=== PATIENT | male | born 1945 | race Caucasian/White ===

== ENCOUNTER → 2020-03-26 12:30 | Outpatient (CLI) | payer MEDICARE, OTHER, SELFPAY ==
[2020-03-26 12:46] LABS: Basophils # 0.1 K/mm3 (0-0.2); Basophils % 0.9 % (0.1-2.0); Eosinophils # 0.4 K/mm3 (0.0-0.4); Eosinophils % 4.2 % (0.1-12.0); Hematocrit 38.7 % (42.0-52.0); Lymphocytes % 20.1 % (10-50); Mean Corpuscular HGB Conc 33.6 g/dL (31.8-35.4); Mean Corpuscular Hemoglobin 34.7 pg (27.0-31.2); Mean Corpuscular Volume 103.4 fl (80-94); Mean Platelet Volume 9.1 fl (7.4-10.4); Monocytes # 0.7 K/mm3 (0.1-1.0); Monocytes % 6.7 % (1.7-9.3); Neutrophils # 6.7 K/mm3 (1.8-7.8); Neutrophils % 68.1 % (37.0-80.0); Platelet Count 368 K/mm3 (142-424); Red Blood Count 3.75 M/mm3 (4.60-6.20); Red Cell Distribution Width 18.3 % (11.5-17.5); White Blood Count 9.8 K/mm3 (4.8-10.8)
[2020-03-26 12:57] LABS: Alanine Aminotransferase 13 U/L (12-78); Albumin Level 4.1 g/dl (3.5-5.0); Albumin/Globulin Ratio 1.9 (1.1-1.8); Alkaline Phosphatase 65 U/L (38-126); Aspartate Amino Transferase 30 U/L (17-59); Bilirubin,Total 0.8 mg/dl (0.2-1.3); Blood Urea Nitrogen 23 mg/dl (9-20); Calcium 10.3 mg/dl (8.4-10.2); Carbon Dioxide 27 mmol/L (22.0-30.0); Chloride 104 mmol/L (98-107); Chol/HDL Ratio 1.8 (1-3.5); Cholesterol 135 mg/dl (140-200); Estimated Glomerular Filt Rate 73 ml/min (>60); GFR (African American) 89 ML/MIN (>60); Globulin 2.2 g/dL (1.3-3.2); Glucose 121 mg/dl (74-100); HDL Cholesterol 75 mg/dl (40-60); Sodium 140 mmol/L (136-145); Total Protein,Serum 6.3 g/dl (6.3-8.2); Triglycerides 158 mg/dl (30-150); VLDL Cholesterol 32 mg/dL (0-40)
[2020-03-26 13:08] LABS: Direct LDL Cholesterol 45.31 mg/dL (100-129)
[2020-03-26 13:14] LABS: T4 (Thyroxine) 12.7 ug/dl (5.53-11.0)
[2020-03-26 13:27] LABS: Thyroid Stimulating Hormone 4.56 uIU/mL (0.465-4.68)
== END ==
PROVIDERS: Visit Provider Nurse Practitioner Family
DX: I10 Essential (primary) hypertension (principal); E11.9 Type 2 diabetes mellitus without complications; Z79.84 Long term (current) use of oral hypoglycemic drugs
CPT/HCPCS: 80053; 80061; 83036; 84436; 84443; 85025

== ENCOUNTER → 2020-06-10 15:01 | Outpatient (CLI) | payer MEDICARE, OTHER, SELFPAY ==
[2020-06-10 18:45] LABS: Basophils # 0.1 K/mm3 (0-0.2); Basophils % 1.2 % (0.1-2.0); Eosinophils # 0.3 K/mm3 (0.0-0.4); Eosinophils % 4.1 % (0.1-12.0); Hematocrit 41.4 % (42.0-52.0); Hemoglobin 12.8 g/dL (14.1-18.0); Lymphocytes # 1.7 K/mm3 (0.7-4.5); Mean Corpuscular Hemoglobin 31.4 pg (27.0-31.2); Mean Corpuscular Volume 101.2 fl (80-94); Monocytes # 0.5 K/mm3 (0.1-1.0); Monocytes % 6.1 % (1.7-9.3); Neutrophils # 5.3 K/mm3 (1.8-7.8); Neutrophils % 67.6 % (37.0-80.0); Platelet Count 330 K/mm3 (142-424); Red Blood Count 4.09 M/mm3 (4.60-6.20); Red Cell Distribution Width 17.9 % (11.5-17.5); White Blood Count 7.9 K/mm3 (4.8-10.8)
[2020-06-10 18:52] LABS: Alanine Aminotransferase 11 U/L (12-78); Albumin Level 4.3 g/dl (3.5-5.0); Albumin/Globulin Ratio 1.7 (1.1-1.8); Alkaline Phosphatase 73 U/L (38-126); Anion Gap 12.7 mEq/L (5-15); Aspartate Amino Transferase 27 U/L (17-59); Bilirubin,Total 0.9 mg/dl (0.2-1.3); Blood Urea Nitrogen 21 mg/dl (9-20); Calcium 10.1 mg/dl (8.4-10.2); Carbon Dioxide 28 mmol/L (22.0-30.0); Chloride 105 mmol/L (98-107); Estimated Glomerular Filt Rate 60 ml/min (>60); GFR (African American) 72 ML/MIN (>60); Globulin 2.5 g/dL (1.3-3.2); Glucose 108 mg/dl (74-100); Potassium 4.7 mmoL/L (3.5-5.1); Sodium 141 mmol/L (136-145); Total Protein,Serum 6.8 g/dl (6.3-8.2)
[2020-06-10 19:06] LABS: T4 (Thyroxine) 12.5 ug/dl (5.53-11.0)
[2020-06-10 19:19] LABS: Thyroid Stimulating Hormone 1.73 uIU/mL (0.465-4.68)
== END ==
PROVIDERS: PCP Nurse Practitioner Family; Visit Provider Nurse Practitioner Family
DX: E11.9 Type 2 diabetes mellitus without complications (principal); J44.9 Chronic obstructive pulmonary disease, unspecified; R00.2 Palpitations; Z79.84 Long term (current) use of oral hypoglycemic drugs; Z79.899 Other long term (current) drug therapy; I49.9 Cardiac arrhythmia, unspecified
CPT/HCPCS: 80053; 84436; 84443; 85025; 93225; 93226

== ENCOUNTER → 2020-07-14 08:03 | Outpatient (CLI) | payer MEDICARE, OTHER, SELFPAY ==
--- NOTE | 2020-07-14 08:05 | CT_ITS ---
PROCEDURE: CT LUNG SCREENING CLINICAL INDICATION: HX OF NICOTINE DEPENDENCE Former smoker Quit smoking 12 years ago 80 pack year smoking history COMPARISON: No exams were available for comparison TECHNIQUE: The exam was performed on a GE Light Speed [address] scanner using 2.90 mGy CTDI. A low dose helical CT CHEST was performed on a multi-detector scanner. All CT scans at the facility use one or more dose reduction, viz: automated exposure control, ma/kV adjustment per patient size (including targeted exams where dose is matched to indication, i.e. head), or iterative reconstruction technique. The LDCT was performed in a facility that meets the criteria for the screening program. Data regarding this exam was submitted to ACR which is an approved registry. The order for this exam indicates that it came as a result of a lung cancer screening counseling shard decision-making visit that included all the elements required of such a visit including smoking cessation. The radiologist interpreting this exam meets the [facility] criteria for the LDCT lung cancer screening program. The exam is reported using the Lung-RADS classification scale and reported to the ACR registry. NOTE: This study was performed for the specific purposes of lung cancer screening and is not an alternative to diagnostic chest CT. RADIATION DOSE: CTDI vol(CT dose Index-volume) = 2.90mG DLP (Dose Length Product) = 115.16 mGcm FINDINGS: COPD changes with areas of scarring. In the right upper lobe there is a somewhat stellate opacity measuring 9 by 8 mm. While this could be due to an area of scarring, 1 cannot exclude a developing neoplasm. This is best seen on series 3 image 23. There is calcified granuloma in left lower lobe. OTHER FINDINGS: Atherosclerotic calcification of the aorta and coronary arteries. There has been a prior CABG. There is mild dilatation of the arch at 3.3 cm. IMPRESSION: Lung-RADS Category 4A Suspicious. Stellate nodule right upper lobe at 9 x 8 mm. Recommendations: If the patient has had older CTs at another institution is recommended a be submitted for comparison. If there are no old studies then a PET CT may provide further evaluation. If that is not performed then, would at least recommend a [address] chest without and with contrast Dictated by: Hans Olson MD 08/03/2020 11:51 Hans Olson MD in [place] 08/03/2020 11:51
[2020-07-14 10:55] VITALS: PULSE 68; PULSE 73
== END ==
PROVIDERS: PCP Nurse Practitioner Family; Visit Provider Internal Medicine Pulmonary Disease
DX: Z87.891 Personal history of nicotine dependence (principal); Z12.2 Encounter for screening for malignant neoplasm of respiratory organs; J44.9 Chronic obstructive pulmonary disease, unspecified
CPT/HCPCS: 94060; 94618; 94640; 94726; 94729

== ENCOUNTER → 2020-09-16 14:25 | Outpatient (CLI) | payer MEDICARE, OTHER, SELFPAY ==
[2020-09-16 14:46] LABS: Basophils # 0.1 K/mm3 (0-0.2); Basophils % 0.9 % (0.1-2.0); Eosinophils # 0.3 K/mm3 (0.0-0.4); Eosinophils % 3.5 % (0.1-12.0); Hematocrit 40.9 % (42.0-52.0); Hemoglobin 13.3 g/dL (14.1-18.0); Lymphocytes # 1.7 K/mm3 (0.7-4.5); Lymphocytes % 19.8 % (10-50); Mean Corpuscular HGB Conc 32.6 g/dL (31.8-35.4); Mean Corpuscular Hemoglobin 32.5 pg (27.0-31.2); Mean Corpuscular Volume 99.9 fl (80-94); Mean Platelet Volume 8.8 fl (7.4-10.4); Monocytes # 0.6 K/mm3 (0.1-1.0); Monocytes % 7.6 % (1.7-9.3); Neutrophils # 5.7 K/mm3 (1.8-7.8); Neutrophils % 68.2 % (37.0-80.0); Platelet Count 384 K/mm3 (142-424); Red Blood Count 4.09 M/mm3 (4.60-6.20); Red Cell Distribution Width 18.8 % (11.5-17.5); White Blood Count 8.3 K/mm3 (4.8-10.8)
[2020-09-16 14:57] LABS: Chloride 100 mmol/L (98-107); Potassium 4.5 mmoL/L (3.5-5.1); Sodium 138 mmol/L (136-145)
[2020-09-16 14:59] LABS: Blood Urea Nitrogen 34 mg/dl (9-20)
[2020-09-16 15:00] LABS: Alanine Aminotransferase 13 U/L (12-78); Albumin Level 4.6 g/dl (3.5-5.0); Albumin/Globulin Ratio 1.8 (1.1-1.8); Alkaline Phosphatase 57 U/L (38-126); Anion Gap 14.5 mEq/L (5-15); Aspartate Amino Transferase 29 U/L (17-59); Bilirubin,Total 0.7 mg/dl (0.2-1.3); Calcium 10.4 mg/dl (8.4-10.2); Carbon Dioxide 28 mmol/L (22.0-30.0); Cholesterol 145 mg/dl (140-200); Estimated Glomerular Filt Rate 50 ml/min (>60); GFR (African American) 60 ML/MIN (>60); Globulin 2.5 g/dL (1.3-3.2); Glucose 139 mg/dl (74-100); Total Protein,Serum 7.1 g/dl (6.3-8.2); Triglycerides 102 mg/dl (30-150); VLDL Cholesterol 20 mg/dL (0-40)
[2020-09-16 15:01] LABS: Chol/HDL Ratio 2.3 (1-3.5); HDL Cholesterol 64 mg/dl (40-60)
[2020-09-16 15:11] LABS: Direct LDL Cholesterol 55.73 mg/dL (100-129)
[2020-09-16 15:16] LABS: T4 (Thyroxine) 13.6 ug/dl (5.53-11.0)
[2020-09-16 15:17] LABS: 25-OH Vitamin D, Total 24.2 ng/mL (30-100)
[2020-09-16 15:30] LABS: Thyroid Stimulating Hormone 2.48 uIU/mL (0.465-4.68)
[2020-09-16 15:40] LABS: Hemoglobin A1C 6.6 % (4.0-6.0)
== END ==
PROVIDERS: Visit Provider Nurse Practitioner Family
DX: E11.9 Type 2 diabetes mellitus without complications (principal); E78.5 Hyperlipidemia, unspecified; I10 Essential (primary) hypertension; I25.10 Atherosclerotic heart disease of native coronary artery without angina pectoris; J44.9 Chronic obstructive pulmonary disease, unspecified; E55.9 Vitamin D deficiency, unspecified; Z79.84 Long term (current) use of oral hypoglycemic drugs; Z87.891 Personal history of nicotine dependence
CPT/HCPCS: 80053; 80061; 82306; 83036; 84436; 84443; 85025

== ENCOUNTER → 2020-11-02 12:34 | Outpatient (CLI) | payer MEDICARE, OTHER, SELFPAY ==
--- NOTE | 2020-11-02 12:35 | CT_ITS ---
PROCEDURE: CT CHEST WO CON CLINICAL INDICATION: Nodule followup COMPARISON: CT CT LUNG SCREENING from 07/14/2020 TECHNIQUE: Axial images obtained with sagittal and coronal reformats. All CT scans at the facility use one or more dose reduction, viz: automated exposure control, ma/kV adjustment per patient size (including targeted exams where dose is matched to indication, i.e. head), or iterative reconstruction technique. FINDINGS: HEART AND MEDIASTINAL STRUCTURES: Median sternotomy and coronary arterial grafts are noted. The heart size is normal. Atherosclerotic vascular calcification of the thoracic aorta and [place] coronary arteries are noted. The ascending and descending thoracic aorta are normal in caliber. Minor atherosclerotic vascular calcification of the mitral valve. Few calcified mediastinal lymph nodes are noted. Evaluation of hilar is limited due to lack of intravenous contrast although no gross lymphadenopathy is noted. LUNGS AND PLEURAL SPACES: Centrilobular emphysematous changes are noted bilaterally. Calcified granuloma in the left lower lobe. There is a right upper lobe spiculated appearing density is noted measuring approximately 8 millimeters. This may represent area of scarring, demonstrates no significant interval change compared to prior study. No other suspicious lung nodules. No focal consolidation or pleural effusions. The central tracheobronchial tree is patent. No other new focal lesions are noted.. BONY STRUCTURES: Minor multilevel degenerative changes of the thoracic spine. UPPER ABDOMEN: Evaluation of the upper abdomen is limited due to lack of intravenous contrast. Multiple splenic granulomata noted. The rest visualized liver demonstrates a focal hyperdense lesion in the subcapsular segment 7, unchanged compared to prior study. Multiple focal hypodense lesions are noted in the kidneys bilaterally, largest in the right kidney measuring up to 5 centimetres. There is focal areas of calcification noted within the lesion, raises the concern for a complex cyst. This is incompletely visualized and evaluated on the current study. ADDITIONAL FINDINGS: The visualized thyroid gland is unremarkable. IMPRESSION: Spiculated right upper lobe density is again noted measuring up to 8 millimeters. Continued close follow-up in 6 months is recommended as per modified Fleischner criteria. Multiple simple and complex appearing renal lesions, partially visualized on the current study. These are incompletely evaluated. Nonemergent renal ultrasound is suggested for further evaluation. Dictated by: Donna Hardy 11/02/2020 14:07 Donna Hardy in [place] 11/02/2020 14:07
== END ==
PROVIDERS: PCP Nurse Practitioner Family; Visit Provider Internal Medicine Pulmonary Disease
DX: R91.1 Solitary pulmonary nodule (principal)
CPT/HCPCS: 71250

== ENCOUNTER → 2021-05-13 14:38 | Outpatient (CLI) | payer MEDICARE, OTHER, SELFPAY ==
--- NOTE | 2021-05-13 14:38 | CT_ITS ---
PROCEDURE INFORMATION: Exam: CT Chest Without Contrast; Diagnostic Exam date and time: 05/13/2021 2:38 PM Age: 75 years old Clinical indication: Abnormal findings; Lung mass or nodule; Not specified; Prior surgery; Surgery date: 6+ months; Surgery type: Open heart; Patient HX: 6 month follow up. Nodules; Additional info: 6-month follow-up TECHNIQUE: Imaging protocol: Diagnostic computed tomography of the chest without contrast. Radiation optimization: All CT scans at this facility use at least one of these dose optimization techniques: automated exposure control; mA and/or kV adjustment per patient size (includes targeted exams where dose is matched to clinical indication); or iterative reconstruction. COMPARISON: CT CHEST WO CON 11/02/2020 1:15 PM FINDINGS: Lungs: Mild panlobular emphysematous changes Pleural spaces: Unremarkable. No pneumothorax. No pleural effusion. Heart: Coronary artery calcifications may indicate coronary artery disease. There is calcification of the aortic valve annulus. There is calcification of the mitral valve annulus. Aorta: Unremarkable. No aortic aneurysm. Lymph nodes: Unremarkable. No enlarged lymph nodes. Liver: 11 mm simple cyst right lobe of the liver . No follow-up imaging recommended . Spleen: The spleen demonstrates punctate calcifications, consistent with remote granulomatous organism exposure. Kidneys and ureters: Multiple simple cysts in the left kidney. Largest measures 3.5 cm. . No follow-up imaging recommended . Bones/joints: Median sternotomy Soft tissues: Unremarkable. IMPRESSION: No acute process COMMENTS: Consistent with the [employer]'s Incidental Findings Committee white paper (J Am Moiz Radiol 2018): Any incidental renal lesion less than 1 cm or classified as too small to characterize, or any incidental cystic renal lesion characterized as simple-appearing, is likely benign. No follow-up imaging is recommended for these lesions per consensus recommendations based on imaging criteria.
== END ==
PROVIDERS: PCP Nurse Practitioner Family; Visit Provider Internal Medicine Pulmonary Disease
DX: R91.8 Other nonspecific abnormal finding of lung field (principal)
CPT/HCPCS: 71250

== ENCOUNTER → 2021-06-09 13:58 | Outpatient (CLI) | payer MEDICARE, OTHER, SELFPAY ==
[2021-06-09 14:14] LABS: Basophils # 0.1 K/mm3 (0-0.2); Basophils % 1.2 % (0.1-2.0); Eosinophils # 0.5 K/mm3 (0.0-0.4); Eosinophils % 5.6 % (0.1-12.0); Hematocrit 38.5 % (42.0-52.0); Hemoglobin 12.5 g/dL (14.1-18.0); Lymphocytes # 1.7 K/mm3 (0.7-4.5); Lymphocytes % 21.3 % (10-50); Mean Corpuscular HGB Conc 32.5 g/dL (31.8-35.4); Mean Corpuscular Hemoglobin 32.9 pg (27.0-31.2); Mean Corpuscular Volume 101.1 fl (80-94); Mean Platelet Volume 8.4 fl (7.4-10.4); Monocytes # 0.5 K/mm3 (0.1-1.0); Neutrophils # 5.4 K/mm3 (1.8-7.8); Neutrophils % 65.9 % (37.0-80.0); Platelet Count 453 K/mm3 (142-424); Red Blood Count 3.81 M/mm3 (4.60-6.20); Red Cell Distribution Width 18.4 % (11.5-17.5); White Blood Count 8.2 K/mm3 (4.8-10.8)
[2021-06-09 14:58] LABS: Alanine Aminotransferase 14 U/L (12-78); Albumin Level 4.4 g/dl (3.5-5.0); Albumin/Globulin Ratio 1.8 (1.1-1.8); Alkaline Phosphatase 65 U/L (38-126); Aspartate Amino Transferase 24 U/L (17-59); Bilirubin,Total 0.6 mg/dl (0.2-1.3); Blood Urea Nitrogen 19 mg/dl (9-20); Calcium 9.9 mg/dl (8.4-10.2); Carbon Dioxide 25 mmol/L (22.0-30.0); Chloride 106 mmol/L (98-107); Chol/HDL Ratio 2.1 (1-3.5); Cholesterol 149 mg/dl (140-200); Estimated Glomerular Filt Rate 83 ml/min (>60); GFR (African American) 100 ML/MIN (>60); Globulin 2.4 g/dL (1.3-3.2); Glucose 114 mg/dl (74-100); HDL Cholesterol 71 mg/dl (40-60); Sodium 140 mmol/L (136-145); Total Protein,Serum 6.8 g/dl (6.3-8.2); Triglycerides 122 mg/dl (30-150); VLDL Cholesterol 24 mg/dL (0-40)
[2021-06-09 15:10] LABS: Direct LDL Cholesterol 55.93 mg/dL (100-129)
[2021-06-09 15:15] LABS: 25-OH Vitamin D, Total 41.9 ng/mL (30-100); T4 (Thyroxine) 12.9 ug/dl (5.53-11.0)
[2021-06-09 15:29] LABS: Thyroid Stimulating Hormone 0.97 uIU/mL (0.465-4.68)
[2021-06-09 15:34] LABS: Hemoglobin A1C 6.2 % (4.0-6.0)
== END ==
PROVIDERS: Visit Provider Nurse Practitioner Family
DX: E11.9 Type 2 diabetes mellitus without complications (principal); E78.5 Hyperlipidemia, unspecified; I10 Essential (primary) hypertension; I25.10 Atherosclerotic heart disease of native coronary artery without angina pectoris; J44.9 Chronic obstructive pulmonary disease, unspecified; E55.9 Vitamin D deficiency, unspecified; Z99.81 Dependence on supplemental oxygen
CPT/HCPCS: 80053; 80061; 82306; 83036; 84436; 84443; 85025

== ENCOUNTER → 2021-10-25 12:44 | Outpatient (CLI) | payer MEDICARE, OTHER, SELFPAY ==
[2021-10-25 10:35] VITALS: PULSE 60; PULSE 68
== END ==
PROVIDERS: PCP Nurse Practitioner Family; Visit Provider Internal Medicine Pulmonary Disease
DX: R06.00 Dyspnea, unspecified (principal)
CPT/HCPCS: 94060; 94618; 94640; 94727; 94729

== ENCOUNTER → 2021-12-06 18:54 | Outpatient (CLI) | payer MEDICARE, OTHER, SELFPAY ==
[2021-12-06 14:33] LABS: Alanine Aminotransferase 14 U/L (12-78); Albumin Level 4.3 g/dl (3.5-5.0); Alkaline Phosphatase 76 U/L (38-126); Anion Gap 14.7 mEq/L (5-15); Aspartate Amino Transferase 25 U/L (17-59); Blood Urea Nitrogen 23 mg/dl (9-20); Calcium 10.1 mg/dl (8.4-10.2); Carbon Dioxide 26 mmol/L (22.0-30.0); Chloride 102 mmol/L (98-107); Chol/HDL Ratio 2.5 (1-3.5); Cholesterol 141 mg/dl (140-200); Estimated Glomerular Filt Rate 65 ml/min (>60); GFR (African American) 79 ML/MIN (>60); Globulin 2.2 g/dL (1.3-3.2); Glucose 133 mg/dl (74-100); HDL Cholesterol 57 mg/dl (40-60); Potassium 4.7 mmoL/L (3.5-5.1); Sodium 138 mmol/L (136-145); Total Protein,Serum 6.5 g/dl (6.3-8.2); Triglycerides 148 mg/dl (30-150); VLDL Cholesterol 30 mg/dL (0-40)
[2021-12-06 14:38] LABS: Basophils # 0.1 K/mm3 (0-0.2); Basophils % 0.8 % (0.1-2.0); Eosinophils # 0.4 K/mm3 (0.0-0.4); Eosinophils % 4.9 % (0.1-12.0); Hematocrit 39.9 % (42.0-52.0); Lymphocytes # 1.6 K/mm3 (0.7-4.5); Lymphocytes % 18.3 % (10-50); Mean Corpuscular HGB Conc 32.5 g/dL (31.8-35.4); Mean Corpuscular Hemoglobin 33.5 pg (27.0-31.2); Mean Platelet Volume 9.5 fl (7.4-10.4); Monocytes # 0.5 K/mm3 (0.1-1.0); Monocytes % 5.9 % (1.7-9.3); Neutrophils # 6.2 K/mm3 (1.8-7.8); Neutrophils % 70.1 % (37.0-80.0); Platelet Count 433 K/mm3 (142-424); Red Blood Count 3.87 M/mm3 (4.60-6.20); Red Cell Distribution Width 19.1 % (11.5-17.5); White Blood Count 8.8 K/mm3 (4.8-10.8)
[2021-12-06 14:45] LABS: Direct LDL Cholesterol 46.75 mg/dL (100-129)
[2021-12-06 14:48] LABS: 25-OH Vitamin D, Total 24.7 ng/mL (30-100)
[2021-12-06 14:51] LABS: T4 (Thyroxine) 15.2 ug/dl (5.53-11.0)
[2021-12-06 14:55] LABS: Hemoglobin A1C 6.8 % (4.0-6.0)
[2021-12-06 15:04] LABS: Thyroid Stimulating Hormone 0.96 uIU/mL (0.465-4.68)
[2021-12-08 11:13] LABS: C-Peptide 2.3 ng/mL (1.1-4.4)
== END ==
PROVIDERS: Visit Provider Nurse Practitioner Family
DX: E11.9 Type 2 diabetes mellitus without complications (principal); I25.10 Atherosclerotic heart disease of native coronary artery without angina pectoris; I10 Essential (primary) hypertension; E78.49 Other hyperlipidemia; J41.8 Mixed simple and mucopurulent chronic bronchitis; E55.9 Vitamin D deficiency, unspecified; Z99.81 Dependence on supplemental oxygen; Z79.84 Long term (current) use of oral hypoglycemic drugs
CPT/HCPCS: 80053; 80061; 82306; 83036; 84436; 84443; 84681; 85025

== ENCOUNTER → 2022-03-07 14:18 | Outpatient (CLI) | payer MEDICARE, OTHER, SELFPAY ==
[2022-03-07 21:22] LABS: Thyroid Stimulating Hormone 1.01 uIU/mL (0.465-4.68)
== END ==
PROVIDERS: PCP Family Medicine; Visit Provider Family Medicine
DX: E11.9 Type 2 diabetes mellitus without complications (principal); I10 Essential (primary) hypertension; E78.5 Hyperlipidemia, unspecified; Z79.84 Long term (current) use of oral hypoglycemic drugs; Z79.899 Other long term (current) drug therapy
CPT/HCPCS: 84443

== ENCOUNTER → 2022-05-09 13:04 | Outpatient (CLI) | payer MEDICARE, OTHER, SELFPAY ==
--- NOTE | 2022-05-09 13:13 | CT_ITS ---
FINAL REPORT CLINICAL HISTORY: lung cancer screening, hx smoker for 30 plus years smoked 2 packs per day COMPARISON: May 13, 2021; July 14, 2020 FINDINGS: Low-Dose Chest CT CTDI vol (mGy): 2.90 DLP (mGy-cm): 111.77 Axial images were obtained from the lung apex to the mid abdomen by computed tomography. Low-dose protocol was utilized. FINDINGS: CHEST: There is no axillary adenopathy. There is no hilar or mediastinal adenopathy. The heart is proper size. There is no pericardial or pleural effusion. Limited images of the upper abdomen demonstrate multiple bilateral renal masses that cannot be accurately characterized but may represent cysts and are similar to the prior exams. Lung window images demonstrate mild changes of emphysema with mild scarring. There is a calcified granuloma in the left lower lobe. There is a 7 mm right upper lobe nodule stable from July of 2020. A 2 mm nodule in the posteromedial left upper lobe is seen on image 21. IMPRESSION: Lung RADS category 2. Recommend 12 month follow-up low-dose chest CT. Reviewed, Interpreted and Dictated by Levar Rosario III, MD Transcribed by Martin Phipps Authenticated and [facility]
== END ==
PROVIDERS: PCP Family Medicine; Visit Provider Internal Medicine Pulmonary Disease
DX: Z87.891 Personal history of nicotine dependence (principal); Z12.2 Encounter for screening for malignant neoplasm of respiratory organs
CPT/HCPCS: 71271

== ENCOUNTER → 2022-09-08 18:13 | Outpatient (CLI) | payer MEDICARE, OTHER, SELFPAY ==
[2022-09-08 14:37] LABS: Basophils # 0.1 K/mm3 (0-0.2); Basophils % 1.2 % (0.1-2.0); Eosinophils # 0.5 K/mm3 (0.0-0.4); Eosinophils % 5.4 % (0.1-12.0); Hematocrit 38.3 % (42.0-52.0); Hemoglobin 12.7 g/dL (14.1-18.0); Lymphocytes # 1.6 K/mm3 (0.7-4.5); Lymphocytes % 19.3 % (10-50); Mean Corpuscular HGB Conc 33.2 g/dL (31.8-35.4); Mean Corpuscular Hemoglobin 33.5 pg (27.0-31.2); Mean Platelet Volume 9.1 fl (7.4-10.4); Monocytes # 0.5 K/mm3 (0.1-1.0); Monocytes % 6.4 % (1.7-9.3); Neutrophils # 5.7 K/mm3 (1.8-7.8); Neutrophils % 67.8 % (37.0-80.0); Platelet Count 471 K/mm3 (142-424); Red Blood Count 3.79 M/mm3 (4.60-6.20); Red Cell Distribution Width 18.9 % (11.5-17.5); White Blood Count 8.4 K/mm3 (4.8-10.8)
[2022-09-08 14:59] LABS: Chloride 108 mmol/L (98-107); Potassium 5.5 mmoL/L (3.5-5.1); Sodium 141 mmol/L (136-145)
[2022-09-08 15:01] LABS: Alanine Aminotransferase 17 U/L (12-78); Aspartate Amino Transferase 26 U/L (17-59); Blood Urea Nitrogen 19 mg/dl (9-20); Estimated Glomerular Filt Rate 59 ml/min (>60); GFR (African American) 71 ML/MIN (>60)
[2022-09-08 15:02] LABS: Albumin Level 4.4 g/dl (3.5-5.0); Albumin/Globulin Ratio 1.9 (1.1-1.8); Alkaline Phosphatase 69 U/L (38-126); Anion Gap 11.5 mEq/L (5-15); Bilirubin,Total 0.6 mg/dl (0.2-1.3); Calcium 9.1 mg/dl (8.4-10.2); Carbon Dioxide 27 mmol/L (22.0-30.0); Chol/HDL Ratio 2.1 (1-3.5); Cholesterol 127 mg/dl (140-200); Globulin 2.3 g/dL (1.3-3.2); Glucose 146 mg/dl (74-100); HDL Cholesterol 60 mg/dl (40-60); Total Protein,Serum 6.7 g/dl (6.3-8.2); Triglycerides 81 mg/dl (30-150); VLDL Cholesterol 16 mg/dL (0-40)
[2022-09-08 15:31] LABS: Thyroid Stimulating Hormone 0.83 uIU/mL (0.465-4.68)
[2022-09-08 19:51] LABS: Prostate Specific Ag Screen 0.5 ng/ml (0.0-4.0)
== END ==
PROVIDERS: PCP Family Medicine; Visit Provider Family Medicine
DX: I10 Essential (primary) hypertension (principal); Z12.5 Encounter for screening for malignant neoplasm of prostate; Z79.899 Other long term (current) drug therapy
CPT/HCPCS: 80053; 80061; 84443; 85025; G0103

== ENCOUNTER → 2023-01-03 10:59 | Outpatient (CLI) | payer MEDICARE, OTHER, SELFPAY ==
[2023-01-03 12:27] LABS: Blood Urea Nitrogen 17 mg/dl (9-20); Estimated Glomerular Filt Rate 65 ml/min (>60); GFR (African American) 79 ML/MIN (>60)
== END ==
PROVIDERS: PCP Family Medicine; Visit Provider Family Medicine
DX: Z01.812 Encounter for preprocedural laboratory examination (principal)
CPT/HCPCS: 36415; 82565; 84520

== ENCOUNTER → 2023-01-04 07:21 | Outpatient (CLI) | payer MEDICARE, OTHER, SELFPAY ==
--- NOTE | 2023-01-04 07:24 | CT_ITS ---
FINAL REPORT TECHNIQUE: Axial CT images of the abdomen were obtained with IV contrast only. Coronal reformatted images were also obtained. This study was performed with techniques to keep radiation doses as low as reasonably achievable (ALARA). Individualized dose reduction techniques using automated exposure control or adjustment of mA and/or kV according to the patient''s size were employed. CLINICAL HISTORY: left flank pain COMPARISON: none FINDINGS: The lung bases are clear. The liver has an unremarkable appearance, without evidence of mass. The gallbladder appears normal without evidence of gallstones. There is no evidence of biliary ductal dilatation. The pancreas appears normal. The spleen size is within normal limits. There are multiple benign-appearing cysts within the bilateral kidneys. Individual cysts measure up to 3.6 cm. There is no evidence of adenopathy. No abnormal fluid collection is seen. No localized inflammatory processes identified. On delayed phase there is opacification of nondilated pelvicalyceal systems. There are significant diverticula in the descending colon. IMPRESSION: Multiple benign-appearing cysts in both kidneys. Reviewed, Interpreted and Dictated by Trunog Mathias MD Transcribed by Veena Gambino Authenticated and [facility]
== END ==
PROVIDERS: PCP Family Medicine; Visit Provider Family Medicine
DX: N28.89 Other specified disorders of kidney and ureter (principal); R10.9 Unspecified abdominal pain
CPT/HCPCS: 74160; Q9967

== ENCOUNTER → 2023-03-08 15:54 | Outpatient (CLI) | payer MEDICARE, OTHER, SELFPAY ==
--- NOTE | 2023-03-08 16:00 | XR_ITS ---
FINAL REPORT CLINICAL HISTORY: Precordial chest pain COMPARISON: None FINDINGS: Two views of the chest were obtained. The heart size and pulmonary vascularity are within normal limits. Prior median sternotomy. Hyperinflation of the lungs consistent with COPD. No acute pulmonary abnormality is identified. There is no pneumothorax. The bony thorax is intact. IMPRESSION: No active cardiopulmonary disease. Reviewed, Interpreted and Dictated by Levar Rosario III, MD Transcribed by Veena Gambino Authenticated and . [facility]
== END ==
PROVIDERS: PCP Physician Assistant; Visit Provider Physician Assistant
DX: Z95.1 Presence of aortocoronary bypass graft (principal); R07.9 Chest pain, unspecified
CPT/HCPCS: 71046

== ENCOUNTER → 2023-03-24 09:49 | Outpatient (CLI) | payer MEDICARE, OTHER, SELFPAY ==
--- NOTE | 2023-03-24 09:50 | CT_ITS ---
FINAL REPORT TECHNIQUE: Axial images were obtained from the lung apex to the mid abdomen by computed tomography. Coronal reformatted images were obtained. This study was performed with techniques to keep radiation doses as low as reasonably achievable, (ALARA). Individualized dose reduction techniques using automated exposure control or adjustment of mA and/or kV according to the patient''s size were employed. CLINICAL HISTORY: Sternum pain COMPARISON: 05/09/2022 FINDINGS: There is no axillary adenopathy. There is no hilar or mediastinal adenopathy. Heart size is normal. Prior median sternotomy with dehiscence of most of the sternal wires. The superiormost wire is broken posteriorly. There is diastases of the sternum up to 12 mm, was 19 mm. There is no pericardial or pleural effusion. There is mild emphysema and mild scarring. There is a 5 mm right upper lobe nodule which is stable, seen on image 31. Calcified granuloma is noted in the left lower lobe. Limited images of the upper abdomen demonstrate multiple probable renal cysts. IMPRESSION: Dehiscence of most of the sternal wires with broken superiormost wire and diastases of the sternum up to 12 mm, was 19 mm. Stable right upper lobe nodule. Multiple probable renal cysts. Reviewed, Interpreted and Dictated by Levar Rosraio III, MD Transcribed by Veena Gambino Authenticated and [facility]
== END ==
PROVIDERS: PCP Physician Assistant; Visit Provider Physician Assistant
DX: R07.89 Other chest pain (principal)
CPT/HCPCS: 71250

== ENCOUNTER 2023-12-12 09:35 | Outpatient (CLI) | payer MEDICARE, OTHER, SELFPAY ==
[2023-12-12] MEDS: ALBUTEROL 0.083% 2.5 MG/3 ML NEB IH (10:49)
== END 2023-12-12 23:59 | disposition home or self-care (01) ==
LOC: RT 09:35
PROVIDERS: PCP Physician Assistant; Visit Provider Internal Medicine Pulmonary Disease
DX: J44.9 Chronic obstructive pulmonary disease, unspecified (principal); R06.02 Shortness of breath
CPT/HCPCS: 94060

== ENCOUNTER 2024-03-07 18:19 | Outpatient (CLI) | payer MEDICARE, OTHER, SELFPAY ==
[2024-03-07 18:25] LABS: Basophils # 0.1 K/mm3 (0-0.2); Basophils % 1.1 % (0.1-2.0); Eosinophils # 0.5 K/mm3 (0.0-0.4); Eosinophils % 5.6 % (0.1-12.0); Hematocrit 39.3 % (42.0-52.0); Hemoglobin 12.7 g/dL (14.1-18.0); Lymphocytes # 1.8 K/mm3 (0.7-4.5); Lymphocytes % 19.5 % (10-50); Mean Corpuscular HGB Conc 32.3 g/dL (31.8-35.4); Mean Corpuscular Hemoglobin 32.9 pg (27.0-31.2); Mean Corpuscular Volume 101.7 fl (80-94); Mean Platelet Volume 9.2 fl (7.4-10.4); Monocytes # 0.6 K/mm3 (0.1-1.0); Monocytes % 6.8 % (1.7-9.3); Neutrophils # 6.1 K/mm3 (1.8-7.8); Neutrophils % 67.1 % (37.0-80.0); Platelet Count 578 K/mm3 (142-424); Red Blood Count 3.87 M/mm3 (4.60-6.20); Red Cell Distribution Width 18.7 % (11.5-17.5); White Blood Count 9.1 K/mm3 (4.8-10.8)
[2024-03-07 19:05] LABS: 25-OH Vitamin D, Total 25.4 ng/mL (30-100)
[2024-03-07 19:28] LABS: Alanine Aminotransferase 16 U/L (12-78); Albumin Level 4.1 g/dl (3.5-5.0); Albumin/Globulin Ratio 1.5 (1.1-1.8); Alkaline Phosphatase 85 U/L (38-126); Anion Gap 11.4 mEq/L (5-15); Aspartate Amino Transferase 28 U/L (17-59); Bilirubin,Total 0.6 mg/dl (0.2-1.3); Blood Urea Nitrogen 24 mg/dl (9-20); Calcium 9.9 mg/dl (8.4-10.2); Carbon Dioxide 27 mmol/L (22.0-30.0); Chloride 106 mmol/L (98-107); Chol/HDL Ratio 2.6 (1-3.5); Cholesterol 176 mg/dl (140-200); Estimated Glomerular Filt Rate 49 ml/min (>60); GFR (African American) 60 ML/MIN (>60); Globulin 2.7 g/dL (1.3-3.2); Glucose 151 mg/dl (74-100); HDL Cholesterol 69 mg/dl (40-60); Potassium 4.4 mmoL/L (3.5-5.1); Sodium 140 mmol/L (136-145); Total Protein,Serum 6.8 g/dl (6.3-8.2); Triglycerides 253 mg/dl (30-150); VLDL Cholesterol 51 mg/dL (0-40)
[2024-03-07 19:39] LABS: Direct LDL Cholesterol 62.52 mg/dL (100-129)
[2024-03-07 19:57] LABS: Prostate Specific Ag Screen 0.6 ng/ml (0.0-4.0); Thyroid Stimulating Hormone 1.67 uIU/mL (0.465-4.68)
[2024-03-08 09:19] LABS: Hemoglobin A1C 7.2 % (4.0-6.0)
== END 2024-03-07 23:59 | disposition home or self-care (01) ==
LOC: LAB.DROPOF 18:20
PROVIDERS: PCP Nurse Practitioner Family; Visit Provider Nurse Practitioner Family
DX: I10 Essential (primary) hypertension (principal); E55.9 Vitamin D deficiency, unspecified; Z12.5 Encounter for screening for malignant neoplasm of prostate; E11.9 Type 2 diabetes mellitus without complications; Z79.84 Long term (current) use of oral hypoglycemic drugs; Z87.891 Personal history of nicotine dependence
CPT/HCPCS: 80053; 80061; 82306; 83036; 84443; 85025; G0103

== ENCOUNTER 2024-03-20 15:00 | Outpatient (CLI) | payer MEDICARE, OTHER, SELFPAY ==
[2024-03-20 18:40] LABS: Basophils # 0.1 K/mm3 (0-0.2); Basophils % 1.2 % (0.1-2.0); Eosinophils # 0.5 K/mm3 (0.0-0.4); Eosinophils % 5.5 % (0.1-12.0); Hematocrit 33.6 % (42.0-52.0); Hemoglobin 11.3 g/dL (14.1-18.0); Lymphocytes # 1.6 K/mm3 (0.7-4.5); Lymphocytes % 18.4 % (10-50); Mean Corpuscular HGB Conc 33.7 g/dL (31.8-35.4); Mean Corpuscular Hemoglobin 35.3 pg (27.0-31.2); Mean Corpuscular Volume 104.7 fl (80-94); Mean Platelet Volume 8.9 fl (7.4-10.4); Monocytes # 0.6 K/mm3 (0.1-1.0); Monocytes % 6.3 % (1.7-9.3); Neutrophils # 6.1 K/mm3 (1.8-7.8); Neutrophils % 68.6 % (37.0-80.0); Platelet Count 566 K/mm3 (142-424); Red Blood Count 3.21 M/mm3 (4.60-6.20); Red Cell Distribution Width 19.3 % (11.5-17.5); White Blood Count 8.9 K/mm3 (4.8-10.8)
[2024-03-20 19:42] LABS: Anion Gap 7.8 mEq/L (5-15); Blood Urea Nitrogen 24 mg/dl (9-20); Calcium 9.3 mg/dl (8.4-10.2); Carbon Dioxide 27 mmol/L (22.0-30.0); Chloride 105 mmol/L (98-107); Estimated Glomerular Filt Rate 39 ml/min (>60); GFR (African American) 48 ML/MIN (>60); Glucose 212 mg/dl (74-100); Potassium 4.8 mmoL/L (3.5-5.1); Sodium 135 mmol/L (136-145)
[2024-03-25 10:44] LABS: Vitamin B12 938 pg/mL (239-931)
[2024-03-25 10:52] LABS: Folate 8.73 ng/mL
[2024-03-25 11:31] LABS: Iron 79 ug/dL (49-181)
[2024-03-25 11:41] LABS: Total Iron Binding Capacity 304 ug/dL (261-462)
== END 2024-03-20 23:59 | disposition home or self-care (01) ==
LOC: LAB.DROPOF 03-21 12:38
PROVIDERS: PCP Nurse Practitioner Family; Visit Provider Nurse Practitioner Family
DX: R91.8 Other nonspecific abnormal finding of lung field (principal); R94.2 Abnormal results of pulmonary function studies; R19.5 Other fecal abnormalities; E11.9 Type 2 diabetes mellitus without complications
CPT/HCPCS: 80048; 82607; 82746; 83540; 83550; 85025

== ENCOUNTER 2024-09-10 09:09 | Outpatient (CLI) | payer MEDICARE, OTHER, SELFPAY ==
[2024-09-10 18:14] LABS: Basophils # 0.1 K/mm3 (0-0.2); Basophils % 1.5 % (0.1-2.0); Eosinophils # 0.4 K/mm3 (0.0-0.4); Eosinophils % 4.5 % (0.1-12.0); Hematocrit 36.3 % (42.0-52.0); Hemoglobin 11.9 g/dL (14.1-18.0); Lymphocytes # 1.3 K/mm3 (0.7-4.5); Lymphocytes % 16.3 % (10-50); Mean Corpuscular HGB Conc 32.8 g/dL (31.8-35.4); Mean Corpuscular Hemoglobin 31.9 pg (27.0-31.2); Mean Corpuscular Volume 97.3 fl (80-94); Mean Platelet Volume 10.2 fl (7.4-10.4); Monocytes # 0.7 K/mm3 (0.1-1.0); Monocytes % 8.6 % (1.7-9.3); Neutrophils # 5.6 K/mm3 (1.8-7.8); Neutrophils % 68.9 % (37.0-80.0); Platelet Count 478 K/mm3 (142-424); Red Blood Count 3.73 M/mm3 (4.60-6.20); Red Cell Distribution Width 17.4 % (11.5-17.5); White Blood Count 8.2 K/mm3 (4.8-10.8)
[2024-09-10 18:39] LABS: Albumin Level 3.8 g/dl (3.5-5.0); Chloride 102 mmol/L (98-107); Potassium 4.6 mmoL/L (3.5-5.1); Sodium 137 mmol/L (136-145)
[2024-09-10 18:41] LABS: Blood Urea Nitrogen 22 mg/dl (9-20); Estimated Glomerular Filt Rate 45 ml/min (>60); GFR (African American) 55 ML/MIN (>60)
[2024-09-10 18:42] LABS: Alanine Aminotransferase 16 U/L (12-78); Albumin/Globulin Ratio 1.7 (1.1-1.8); Alkaline Phosphatase 92 U/L (38-126); Anion Gap 13.6 mEq/L (5-15); Aspartate Amino Transferase 28 U/L (17-59); Bilirubin,Total 0.7 mg/dl (0.2-1.3); Calcium 9.4 mg/dl (8.4-10.2); Carbon Dioxide 26 mmol/L (22.0-30.0); Globulin 2.2 g/dL (1.3-3.2); Glucose 143 mg/dl (74-100); Iron 73 ug/dL (49-181)
[2024-09-10 18:51] LABS: Total Iron Binding Capacity 306 ug/dL (261-462)
[2024-09-10 19:17] LABS: Ferritin 52.6 ng/ml (17.9-464)
[2024-09-10 19:35] LABS: Vitamin B12 775 pg/mL (239-931)
[2024-09-10 20:38] LABS: Hemoglobin A1C 7.8 % (4.0-6.0)
== END 2024-09-10 23:59 | disposition home or self-care (01) ==
LOC: LAB.DROPOF 09-11 09:09
PROVIDERS: PCP Nurse Practitioner Family; Visit Provider Nurse Practitioner Family
DX: E78.5 Hyperlipidemia, unspecified (principal); G62.9 Polyneuropathy, unspecified; E11.9 Type 2 diabetes mellitus without complications; E78.49 Other hyperlipidemia; J41.8 Mixed simple and mucopurulent chronic bronchitis; Z87.891 Personal history of nicotine dependence; I10 Essential (primary) hypertension
CPT/HCPCS: 80053; 82607; 82728; 82746; 83036; 83540; 83550; 85025

== ENCOUNTER 2024-11-18 13:35 | Outpatient (CLI) | payer MEDICARE, OTHER, SELFPAY ==
--- NOTE | 2024-11-18 13:39 | XR_ITS ---
FINAL REPORT TECHNIQUE: Chest PA & Lateral CLINICAL HISTORY: copd cough Shortness of breath COMPARISON: 03/08/2023 FINDINGS: 2 views of the chest were performed. The heart size is normal. Sternotomy wires are present. There is no acute cardiopulmonary process. There are no pleural effusions. There is no pneumothorax. The bony thorax appears intact. IMPRESSION: No acute cardiopulmonary process. Reviewed, Interpreted and Dictated by Truong Mathias MD Transcribed by Veena Gambino Authenticated and [facility]
== END 2024-11-18 23:59 | disposition home or self-care (01) ==
PROVIDERS: PCP Family Medicine; Visit Provider Family Medicine
DX: J41.8 Mixed simple and mucopurulent chronic bronchitis (principal)
CPT/HCPCS: 71046

== ENCOUNTER 2024-12-26 16:00 | Outpatient (CLI) | payer MEDICARE, OTHER, SELFPAY ==
[2024-12-26 18:19] LABS: Basophils # 0.1 K/mm3 (0-0.2); Basophils % 1.4 % (0.1-2.0); Eosinophils # 0.5 Kmm3 (0.0-0.4); Eosinophils % 6.3 % (0.1-12.0); Hematocrit 34.7 % (42.0-52.0); Hemoglobin 11.7 g/dL (14.1-18.0); Immature Granulocytes # 0.02 10^3uL; Immature Granulocytes % 0.2 %; Lymphocytes # 1.6 K/mm3 (0.7-4.5); Lymphocytes % 19.6 % (10-50); Mean Corpuscular HGB Conc 33.7 g/dL (31.8-35.4); Mean Corpuscular Hemoglobin 32.5 pg (27.0-31.2); Mean Corpuscular Volume 96.4 fl (80-94); Mean Platelet Volume 9.7 fl (7.4-10.4); Monocytes # 0.8 K/mm3 (0.1-1.0); Monocytes % 9.8 % (1.7-9.3); Neutrophils # 5.2 K/mm3 (1.8-7.8); Neutrophils % 62.7 % (37.0-80.0); Nucleated Red Blood Cells # 0 10^3/uL; Nucleated Red Blood Cells % 0 %; Platelet Count 555 K/mm3 (142-424); Red Cell Distribution Width 17.8 % (11.5-17.5); White Blood Count 8.4 K/mm3 (4.8-10.8)
[2024-12-26 19:10] LABS: Hemoglobin A1C 8.2 % (4.0-6.0)
[2024-12-26 19:13] LABS: Alanine Aminotransferase 14 U/L (12-78); Albumin Level 3.9 g/dl (3.5-5.0); Albumin/Globulin Ratio 1.7 (1.1-1.8); Alkaline Phosphatase 82 U/L (38-126); Anion Gap 11.8 mEq/L (5-15); Aspartate Amino Transferase 24 U/L (17-59); Bilirubin,Total 0.6 mg/dl (0.2-1.3); Blood Urea Nitrogen 23 mg/dl (9-20); Carbon Dioxide 23 mmol/L (22.0-30.0); Chloride 106 mmol/L (98-107); Chol/HDL Ratio 2.3 (1-3.5); Cholesterol 143 mg/dl (140-200); Estimated Glomerular Filt Rate 49 ml/min (>60); GFR (African American) 59 ML/MIN (>60); Globulin 2.3 g/dL (1.3-3.2); Glucose 90 mg/dl (74-100); HDL Cholesterol 63 mg/dl (40-60); Potassium 4.8 mmoL/L (3.5-5.1); Sodium 136 mmol/L (136-145); Total Protein,Serum 6.2 g/dl (6.3-8.2); Triglycerides 138 mg/dl (30-150); VLDL Cholesterol 28 mg/dL (0-40)
[2024-12-26 19:24] LABS: Direct LDL Cholesterol 59.25 mg/dL (100-129)
== END 2024-12-26 23:59 | disposition home or self-care (01) ==
LOC: LAB.DROPOF 22:41
PROVIDERS: PCP Family Medicine; Visit Provider Family Medicine
DX: J44.1 Chronic obstructive pulmonary disease with (acute) exacerbation (principal); R53.83 Other fatigue; E11.9 Type 2 diabetes mellitus without complications; J44.9 Chronic obstructive pulmonary disease, unspecified; E78.5 Hyperlipidemia, unspecified; Z79.84 Long term (current) use of oral hypoglycemic drugs
CPT/HCPCS: 80053; 80061; 83036; 85025

== ENCOUNTER 2025-01-14 11:33 | Outpatient (CLI) | payer MEDICARE, OTHER, SELFPAY ==
--- OUTSIDE RECORDS SUMMARY | 2025-01-14 11:37 | XMS_ITS | Data Portability ---
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 Bladder cancer surveillance shows no recurrence on recent cystoscopy, consistent with stable disease. Renal cysts remain unchanged and do not currently suggest a need for intervention. BPH continues to be managed with tamsulosin, which the patient tolerates well. PSA status needs assessment to establish current prostate health. [email or web address] Not available 09/12/2024 18:10:05 Plan of Treatment Reminders Order Date Submit Date Provider Last Modified By Organization Details Last Modified Time Details Appointments None recorded . Lab urinalys is panel, auto 2024 025 [facility], [address], [address], [place], [address], 5 08:21:25 urinalys is panel, auto 2023 024 [facility], [address], [address], [place], [address], 4 20:25:56 Referral None recorded . Procedures None recorded . Surgeries cystosco py (SURG) [email or web address] [facility], [address] [place] [address], [phone], 5 13:28:15 cystosco py (SURG) [email or web address] [facility], [address] [place] [address], [place], [address], 4 07:23:53 Imaging US, retroper itoneum, limited 2024 025 [facility], [address] [place] [address], [address], 5 08:21:25 CT, abdomen, w/wo contrast 2023 024 [facility], [address] [place] [address], [address], 4 12:01:05 Medication Orders nystatin 100,000 unit/gra m topical powder 2020 021 [facility] [id number], [address] [place] [address], [address], 1 09:50:02 Patient TargetsNo targets recorded. Patient Instructions Encounter Date Encounter Id Patient Instructions Last Modified By Organization Details Last Modified Time 09/12/2024 [id number] - Continue takin g tamsulosin as prescribed for BPH. - Attend all scheduled follow-up appointments for surveillance cystoscopy. - Report any new or worsening urinary symptoms immediately. - Await PSA test results and follow up as advised. [email or web address] Not available 09/12/2024 18:10:07 Reason for Referral None Reported. Results Created Date Observation Date Name Description Value Unit Range Abnormal Flag Note LastModifiedBy Organization Detail LastModifiedTime 10/13/1910/12/2022 urina lysis panel , auto Unknown Analyte Clean Catch Not Available [facility] Schedule [address] [place], [address], 10/12/2022 14:16:07 10/13/19 23 10/12/2022 urina lysis panel , auto Unknown Analyte Yellow Not Available [facility] Surgery Schedule [address] [place], [address], 10/12/2022 14:16:07 10/13/19 23 10/12/2022 urina lysis panel , auto Unknown Analyte Clear Not Available [facility] Surgery Schedule [address] [place], [address], 10/12/2022 14:16:07 10/13/19 23 10/12/2022 urina lysis panel , auto Unknown Analyte 1.025 Not Available [facility] Surgery Schedule [address] [place], [address], 10/12/2022 14:16:07 10/13/19 23 10/12/2022 urina lysis panel , auto Unknown Analyte 1.003- 1.035 Not Available [facility] [place], [address], 10/12/2022 14:16:07 10/13/19 23 10/12/2022 urina lysis panel , auto Unknown Analyte 5.0 Not Available [facility] Surgery Schedule [address] [place], [address], 10/12/2022 14:16:07 10/13/19 23 10/12/2022 urina lysis panel , auto Unknown Analyte 5.0-8. 0 Not Available [facility] [place], [address], 10/12/2022 14:16:07 10/13/19 23 10/12/2022 urina lysis panel , auto Unknown Analyte Negati ve Not Available [facility] Schedule [address] [place], [address], 10/12/2022 14:16:07 10/13/19 23 10/12/2022 urina lysis panel , auto Unknown Analyte Negati ve Not Available [facility] Schedule [address] [place], [address], 10/12/2022 14:16:07 10/13/19 23 10/12/2022 urina lysis panel , auto Unknown Analyte Negati ve Not Available [facility] Schedule [address] [place], [address], 10/12/2022 14:16:07 10/13/19 23 10/12/2022 urina lysis panel , auto Unknown Analyte Negati ve Not Available [facility] Schedule [address] [place] [address], [address], 10/12/2022 14:16:07 10/13/19 23 10/12/2022 urina lysis panel , auto Unknown Analyte 500 mg/dl (+++) Not Available [facility] Schedule [address] [place] [address], [address], 10/12/2022 14:16:10/13/1910/12/2022 urina lysis panel , auto Unknown Analyte Negati ve Not Available [facility] Surgery Schedule [address] [place] [address], [address], 10/12/2022 14:16:07 10/13/19 23 10/12/2022 urina lysis panel , auto Unknown Analyte Normal Not Available [facility] Surgery Schedule [address] [place], [address], 10/12/2022 14:16:10/13/1910/12/2022 urina lysis panel , auto Unknown Analyte Normal Not Available [facility] Surgery Schedule [address] [place] [address], [address], 10/12/2022 14:16:07 10/13/19 23 10/12/2022 urina lysis panel , auto Unknown Analyte Negati ve Not Available [facility] Schedule [address] [place], [address], 10/12/2022 14:16:07 10/13/19 23 10/12/2022 urina lysis panel , auto Unknown Analyte Negati ve Not Available [facility] Schedule [address] [place], [address], 10/12/2022 14:16:07 10/13/19 23 10/12/2022 urina lysis panel , auto Unknown Analyte Normal Not Available [facility] Surgery Schedule [address] [place], [address], 10/12/2022 14:16:07 10/13/19 23 10/12/2022 urina lysis panel , auto Unknown Analyte Normal 1 mg/dl Not Available [facility] Schedule [address] [place], [address], 10/12/2022 14:16:07 10/13/19 23 10/12/2022 urina lysis panel , auto Unknown Analyte Negati ve Not Available [facility] Schedule [address] [place], [address], 10/12/2022 14:16:07 10/13/19 23 10/12/2022 urina lysis panel , auto Unknown Analyte Negati ve Not Available [facility] Schedule [address] [place], [address], 10/12/2022 14:16:07 10/13/19 23 10/12/2022 urina lysis panel , auto Unknown Analyte Negati ve Not Available [facility] Schedule [address] [place], [address], 10/12/2022 14:16:07 10/13/19 23 10/12/2022 urina lysis panel , auto Unknown Analyte Negati ve Not Available [facility] Schedule [address] [place], [address], 10/12/2022 14:16:07 06/06/2006/06/2024 urina lysis panel , auto Unknown Analyte Clean Catch Not Available [facility] [address], [place], [address], 06/06/2024 08:49:02 06/06/2006/06/2024 urina lysis panel , auto Unknown Analyte Yellow Not Available [facility] [address], [place], [address], 06/06/2024 08:49:02 06/06/2006/06/2024 urina lysis panel , auto Unknown Analyte Clear Not Available [facility] [address], [place], [address], 06/06/2024 08:49:02 06/06/2006/06/2024 urina lysis panel , auto Unknown Analyte 1.015 Not Available [facility] [address], [place], [address], 06/06/2024 08:49:02 06/06/2006/06/2024 urina lysis panel , auto Unknown Analyte 1.003- 1.035 Not Available [facility] [address], [place], [address], 06/06/2024 08:49:02 06/06/2006/06/2024 urina lysis panel , auto Unknown Analyte 5.0 Not Available [facility] [address], [place], [address], 06/06/2024 08:49:02 06/06/2006/06/2024 urina lysis panel , auto Unknown Analyte 5.0-8. 0 Not Available [facility] [address], [place], [address], 06/06/2024 08:49:02 06/06/2006/06/2024 urina lysis panel , auto Unknown Analyte Negati ve Not Available [facility] [address], [place], [address], 06/06/2024 08:49:02 06/06/2006/06/2024 urina lysis panel , auto Unknown Analyte Negati ve Not Available [facility] [address], [place], [address], 06/06/2024 08:49:02 06/06/2006/06/2024 urina lysis panel , auto Unknown Analyte Negati ve Not Available [facility] [address], [place], [address], 06/06/2024 08:49:02 06/06/2006/06/2024 urina lysis panel , auto Unknown Analyte Negati ve Not Available [facility] [address], [place], [address], 06/06/2024 08:49:02 06/06/2006/06/2024 urina lysis panel , auto Unknown Analyte 500 mg/dl (+++) Not Available [facility] [address], [place], [address], 06/06/2024 08:49:02 06/06/2006/06/2024 urina lysis panel , auto Unknown Analyte Negati ve Not Available [facility] [address], [place], [address], 06/06/2024 08:49:02 06/06/2006/06/2024 urina lysis panel , auto Unknown Analyte Normal Not Available [facility] [address], [place], [address], 06/06/2024 08:49:02 06/06/2006/06/2024 urina lysis panel , auto Unknown Analyte Normal Not Available [facility] [address], [place], [address], 06/06/2024 08:49:02 06/06/2006/06/2024 urina lysis panel , auto Unknown Analyte Negati ve Not Available [facility] [address], [place], [address], 06/06/2024 08:49:02 06/06/2006/06/2024 urina lysis panel , auto Unknown Analyte Negati ve Not Available [facility] [address], [place], [address], 06/06/2024 08:49:02 06/06/2006/06/2024 urina lysis panel , auto Unknown Analyte Normal Not Available [facility] [address], [place], [address], 06/06/2024 08:49:02 06/06/2006/06/2024 urina lysis panel , auto Unknown Analyte Normal 1 mg/dl Not Available [facility] [address], [place], [address], 06/06/2024 08:49:02 06/06/2006/06/2024 urina lysis panel , auto Unknown Analyte Negati ve Not Available [facility] [address], [place], [address], 06/06/2024 08:49:02 06/06/2006/06/2024 urina lysis panel , auto Unknown Analyte Negati ve Not Available [facility] [address], [place], [address], 06/06/2024 08:49:02 06/06/2006/06/2024 urina lysis panel , auto Unknown Analyte Negati ve Not Available [facility] [address], [place], [address], 06/06/2024 08:49:02 06/06/2006/06/2024 urina lysis panel , auto Unknown Analyte Negati ve Not Available [facility] [address], [place], [address], 06/06/2024 08:49:02 07/26/20 24 07/26/2024 urina lysis panel , auto Unknown Analyte Clean Catch Not Available [facility] [address] [facility], [place], [address], 07/26/2024 14:10:24 07/26/20 24 07/26/2024 urina lysis panel , auto Unknown Analyte Yellow Not Available [facility] Surgery Schedule [address] [place], [address], 07/26/2024 14:10:24 07/26/20 24 07/26/2024 urina lysis panel , auto Unknown Analyte Clear Not Available [facility] Surgery Schedule [address] [place], [address], 07/26/2024 14:10:24 07/26/20 24 07/26/2024 urina lysis panel , auto Unknown Analyte 1.015 Not Available [facility] Surgery Schedule [address] [place], [address], 07/26/2024 14:10:24 07/26/20 24 07/26/2024 urina lysis panel , auto Unknown Analyte 1.003- 1.035 Not Available [facility] [address] [place], [address], 07/26/2024 14:10:24 07/26/20 24 07/26/2024 urina lysis panel , auto Unknown Analyte 5.0 Not Available [facility] Surgery Schedule [address] [place], [address], 07/26/2024 14:10:24 07/26/20 24 07/26/2024 urina lysis panel , auto Unknown Analyte 5.0-8. 0 Not Available [facility] [address] [place], [address], 07/26/2024 14:10:24 07/26/20 24 07/26/2024 urina lysis panel , auto Unknown Analyte 25 Andrey/ul Trace Not Available [facility] Schedule [address] [place], [address], 07/26/2024 14:10:24 07/26/20 24 07/26/2024 urina lysis panel , auto Unknown Analyte Negati ve Not Available [facility] Schedule [address] [place], [address], 07/26/2024 14:10:24 07/26/20 24 07/26/2024 urina lysis panel , auto Unknown Analyte Negati ve Not Available [facility] Schedule [address] [place], [address], 07/26/2024 14:10:24 07/26/20 24 07/26/2024 urina lysis panel , auto Unknown Analyte Negati ve Not Available [facility] Schedule [address] [place], [address], 07/26/2024 14:10:24 07/26/20 24 07/26/2024 urina lysis panel , auto Unknown Analyte 500 mg/dl (+++) Not Available [facility] Schedule [address] [place] [address], [address], 07/26/2024 14:10:24 07/26/20 24 07/26/2024 urina lysis panel , auto Unknown Analyte Negati ve Not Available [facility] Schedule [address] [place] [address], [address], 07/26/2024 14:10:24 07/26/20 24 07/26/2024 urina lysis panel , auto Unknown Analyte 100 mg/dl Not Available [facility] Schedule [address] [place] [address], [address], 07/26/2024 14:10:24 07/26/20 24 07/26/2024 urina lysis panel , auto Unknown Analyte Normal Not Available [facility] Surgery Schedule [address] [place], [address], 07/26/2024 14:10:24 07/26/20 24 07/26/2024 urina lysis panel , auto Unknown Analyte Negati ve Not Available [facility] Schedule [address] [place] [address], [address], 07/26/2024 14:10:24 07/26/20 24 07/26/2024 urina lysis panel , auto Unknown Analyte Negati ve Not Available [facility] Schedule [address] [place], [address], 07/26/2024 14:10:24 07/26/20 24 07/26/2024 urina lysis panel , auto Unknown Analyte Normal Not Available [facility] Surgery Schedule [address] [place], [address], 07/26/2024 14:10:24 07/26/20 24 07/26/2024 urina lysis panel , auto Unknown Analyte Normal 1 mg/dl Not Available [facility] Schedule [address] [place], [address], 07/26/2024 14:10:24 07/26/20 24 07/26/2024 urina lysis panel , auto Unknown Analyte Negati ve Not Available [facility] Schedule [address] [place], [address], 07/26/2024 14:10:24 07/26/20 24 07/26/2024 urina lysis panel , auto Unknown Analyte Negati ve Not Available [facility] Schedule [address] [place], [address], 07/26/2024 14:10:24 07/26/20 24 07/26/2024 urina lysis panel , auto Unknown Analyte Negati ve Not Available [facility] Schedule [address] [place], [address], 07/26/2024 14:10:24 07/26/20 24 07/26/2024 urina lysis panel , auto Unknown Analyte Negati ve Not Available [facility] Schedule [address] [place], [address], 07/26/2024 14:10:24 09/12/19 25 09/12/2024 urina lysis panel , auto Unknown Analyte Clean Catch Not Available [facility] [address] [place] [address] [address], [place], [address], 09/12/2024 15:39:52 09/12/19 25 09/12/2024 urina lysis panel , auto Unknown Analyte Yellow Not Available [facility] [address], [place], [address], 09/12/2024 15:39:52 09/12/19 25 09/12/2024 urina lysis panel , auto Unknown Analyte Clear Not Available [facility] [address], [place], [address], 09/12/2024 15:39:52 09/12/19 25 09/12/2024 urina lysis panel , auto Unknown Analyte 1.020 Not Available [facility] [address], [place], [address], 09/12/2024 15:39:52 09/12/19 25 09/12/2024 urina lysis panel , auto Unknown Analyte 1.003- 1.035 Not Available [facility] [address], [place], [address], 09/12/2024 15:39:52 09/12/19 25 09/12/2024 urina lysis panel , auto Unknown Analyte 5.0 Not Available [facility] [address], [place], [address], 09/12/2024 15:39:52 09/12/19 25 09/12/2024 urina lysis panel , auto Unknown Analyte 5.0-8. 0 Not Available [facility] [address], [place], [address], 09/12/2024 15:39:52 09/12/19 25 09/12/2024 urina lysis panel , auto Unknown Analyte Negati ve Not Available [facility] [address], [place], [address], 09/12/2024 15:39:52 09/12/19 25 09/12/2024 urina lysis panel , auto Unknown Analyte Negati ve Not Available [facility] [address], [place], [address], 09/12/2024 15:39:52 09/12/19 25 09/12/2024 urina lysis panel , auto Unknown Analyte Negati ve Not Available [facility] [address], [place], [address], 09/12/2024 15:39:52 09/12/19 25 09/12/2024 urina lysis panel , auto Unknown Analyte Negati ve Not Available [facility] [address], [place], [address], 09/12/2024 15:39:52 09/12/19 25 09/12/2024 urina lysis panel , auto Unknown Analyte 500 mg/dl (+++) Not Available [facility] [address], [place], [address], 09/12/2024 15:39:52 09/12/19 25 09/12/2024 urina lysis panel , auto Unknown Analyte Negati ve Not Available [facility] [address], [place], [address], 09/12/2024 15:39:52 09/12/19 25 09/12/2024 urina lysis panel , auto Unknown Analyte >1000 mg/dl Not Available [facility] [address], [place], [address], 09/12/2024 15:39:52 09/12/19 25 09/12/2024 urina lysis panel , auto Unknown Analyte Normal Not Available [facility] [address], [place], [address], 09/12/2024 15:39:52 09/12/19 25 09/12/2024 urina lysis panel , auto Unknown Analyte Negati ve Not Available [facility] [address], [place], [address], 09/12/2024 15:39:52 09/12/19 25 09/12/2024 urina lysis panel , auto Unknown Analyte Negati ve Not Available [facility] [address], [place], [address], 09/12/2024 15:39:52 09/12/19 25 09/12/2024 urina lysis panel , auto Unknown Analyte Normal Not Available [facility] [address], [place], [address], 09/12/2024 15:39:52 09/12/19 25 09/12/2024 urina lysis panel , auto Unknown Analyte Normal 1 mg/dl Not Available [facility] [address], [place], [address], 09/12/2024 15:39:52 09/12/19 25 09/12/2024 urina lysis panel , auto Unknown Analyte Negati ve Not Available [facility] [address], [place], [address], 09/12/2024 15:39:52 09/12/19 25 09/12/2024 urina lysis panel , auto Unknown Analyte Negati ve Not Available [facility] [address], [place], [address], 09/12/2024 15:39:52 09/12/19 25 09/12/2024 urina lysis panel , auto Unknown Analyte Negati ve Not Available [facility] [address], [place], [address], 09/12/2024 15:39:52 09/12/19 25 09/12/2024 urina lysis panel , auto Unknown Analyte Negati ve Not Available [facility] [address], [place], [address], 09/12/2024 15:39:52 05/22/20 24 05/02/2024 US, abdom en No observ ation record ed. [facility] [address] [facility] [address], [place], [address], 05/22/2024 19:35:32 07/10/20 24 07/10/2024 CT, abdom en, w/wo contr ast [facility] [address] [place] [address] Patien t Name: UMBERTO PASTORY Vamshi t : [address] Orderi [facility] er: KERRY PERKINS [facility] EXAM DATE: 2023 EXAM: CT ABDOME N W/WO CONTRA ST CLIN[facility] AL INFORM ATION: TECHNI QUE: No POC testin g for eGFR was perfor med due to absenc e of risk factor s. Multip le axial CT images of the abdome n were obtain ed before and in the arteri al and portal venous phases after inject ion of 100 mL Omnipa que 350 (1 x 100 mL bottle of [facility] [address]-9 1). none was wasted and discar ded. No oral contra st or water was admini stered to the patien t. COMPAR ALISIA: None. FINDIN GS: LOWER THORAX : Lung bases are clear. No obviou s cardia c abnorm ality. LIVER, PANCRE AND BILIAR Y TRACT: Liver is normal in size, outlin e and attenu ation. 1 cm benign cyst.5 Hepati c artery , portal vein, hepati c veins and their branch es and tribut mason are normal . No intra or extrah epatic biliar y dilata tion is presen t. Gallbl adder is normal . No pancre atic mass is visual ized. Pancre atic duct is normal in calibe r. RENAL SYSTEM : Clementine us cysts are presen t involv ing both kidney s rangin g in size from 5 mm to 6.6 cm. Certai n of these have slight ly higher densit y than would be expect ed for simple cyst format ion althou gh there is very little change in size and appear ance since the prior study. None demons trate signif icant enhanc ement. UPPER ABDOMI NAL ORGANS : Spleen , adrena ls and both kidney s are normal . BOWEL AND MESENT SWEETIE: Stomac h, small bowel and colon are normal . No mesent milan lympha denopa thy or perito karina free fluid. RETROP ERITON EUM: Aorta, IVC and their branch es are patent and normal . No retrop eriton eal lympha denopa thy. ABDOMI NAL WALL AND SKELET AL STRUCT URES: Normal . COMBIN ED IMPRES NAFISA: 1. Clementine us bilate ral renal cysts. Grossl y stable appear ance from prior study. Cyst in the inferi or right kidney appear s to be a [place] k 2 lesion in the stable in size Interp reted By: Ian Branch MD Electr onical ly Signed By: Ian Branch MD on 024 11:55 AM [email or web address] [address], [address], 07/11/2024 15:59:22 Result Notes None recorded. Problems Name Problem SNOMED Code Status Onset Date Resolution Date Notes Provider Name and Address Organization Details Recorded Time Hypertensiv e disorder 56142766 Active 2019 Carmencita Elly null, [facility] 0 13:25:34 Heart disease 64152595 Active 2019 Carmencita Elly null, [facility] 0 13:27:23 Chronic obstructive pulmonary disease 67706033 Active 2019 Carmencita Elly null, [facility] 0 13:27:29 Severe chronic obstructive pulmonary disease 189527301 Active 2019 LES COLLINS MD [address] [place] [address], [address] 1, [facility] 0 13:01:06 Coronary arterioscle rosis in [place] artery 0206199746436 Active 2019 LES COLLINS MD [address] [place] [address], [address] 1, [facility] 0 13:01:07 Type 2 diabetes mellitus without complicatio n 483645112 Active 2019 LES COLLINS MD [address] [place] [address], [address]156 1, [facility] 0 13:02:23 Essential hypertensio n 79304995 Active 2019 LES COLLINS MD [address] [place] [address], 625[address] 1, [facility] 0 13:02:24 Mixed hyperlipide lexy 423638561 Active 2019 LES COLLINS MD [address] [place] [address], 76[address]-926 1, [facility] 0 13:02:26 Hypothyroid ism 08363277 Active 2019 LES COLLINS MD [address] [place] [address], 6[address] 1, [facility] 0 13:02:27 Long-term current use of anticoagula nt 637911550 Active 2019 LES COLLINS MD [address] [place] [address], 9[address]-723 1, [facility] 0 13:02:29 Benign prostatic hyperplasia without outflow obstruction 549678294 Active 2019 LES COLLINS MD [address] [place] [address], [address] 1, [facility] 0 13:02:33 Iron deficiency anemia 90795221 Active 2019 LES COLLINS MD [address] [place] [address], 477[address]-091 1, [facility] 0 13:03:07 Vitamin B12 deficiency (non anemic) 15570901 Active 2019 LES COLLINS MD [address] [place] [address], 67787-442 1, [facility] 0 13:03:13 Malignant neoplasm of urinary bladder 860795822 Active 2020 KERRY ARNDT JR, MD [address] [place] [address], 92783-524 1, [facility] 1 20:53:14 Renal mass 848160417 Active 2023 KERRY ARNDT JR, MD [address] [place] [address], 18278-421 1, [facility] 4 20:25:04 Congenital renal cyst 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 Procedures Surgical History Date Name Laterality Status Provider Name and Address Organization Details Recorded Time 07/26/20 24 Cystoscopy - male completed KERRY ARNDT JR, MD [address] [place] [address], [phone], [facility] 07/26/2024 16:10:41 10/13/19 23 Cystoscopy - male completed KERRY ARNDT JR, MD [address] [place], [address], [facility] 10/12/2022 15:26:31 05/21/20 19 CABG completed Carmencita Elly [facility] 12/17/2019 13:23:36 05/15/20 19 Cystoscopy - male completed SANDOR VICTOR MD [address] [place] [address], [address], [facility] 05/15/2019 13:06:21 Coronary Artery Stent completed Carmencita Elly [facility] 12/17/2019 13:24:07 Appendectomy completed Carmencita Elly [facility] 12/17/2019 13:24:14 operation on urinary bladder completed Carmencita Elly [facility] 12/17/2019 13:24:38 Imaging Results None recorded. Procedure Notes None recorded. Medical Equipment None Reported. Allergies Allergen ID Allergen Name Allergen Category Reaction Reaction Severity Criticality Documentation Date Start Date Code Code System Note Provider Name and Address Organization Details Recorded Time 907480 Product containin g penicilli n (product) medicatio n nausea mild Not available 07/01/20162006 00812 8001 SNOMED Carmencita Elly [facility] 0 13:14:09 424966 codeine medicatio n nausea mild Not available 07/01/20162006 2670 RxNorm Carmencita Elly [facility] 0 13:14:03 Medications Name Sig Start Date Stop Date Status Note LastModified by Organization Details LastModified Time anoro ellipt aer 62.5-25 02/03 completed Not Available Not Available Not Available levothyro xine sodium 88 mcg tabs 02/03 completed Not Available Not Available Not Available losartan potassium 50 mg tabs 02/03 completed Not Available Not Available Not Available atorvasta tin calcium 40 mg tabs 02/03 completed Not Available Not Available Not Available tamsulosi n hydrochlo ride 0.4 mg caps 02/03 completed Not Available Not Available Not Available atorvasta tin calcium 80 mg tabs 01/20 completed Not Available Not Available Not Available losartan 50 mg tablet Take 1 tablet every day by oral route. 02/03 completed Not Available Not Available Not Available furosemid e 40 mg tablet 12/18 completed Not Available Not Available Not Available atorvasta tin 40 mg tablet Take 1 tablet every day by oral route at bedtime. active Not Available Not Available No t Available albuterol sulfate 0.63 mg/3 mL solution for nebulizat ion Inhale as needed by inhalati on route. 12/16 completed Not Available Not Available Not Available atorvasta tin 80 mg tablet 12/18 completed Not Available Not Available Not Available clonidine HCl 0.1 mg tablet 12/18 completed Not Available Not Available Not Available prednison e 10 mg tablet 12/16 completed Not Available Not Available Not Available atorvasta tin 20 mg tablet 12/16 completed Not Available Not Available Not Available ketoconaz ole 2 % shampoo 02/03 completed Not Available Not Available Not Available trazodone 50 mg tablet 12/18 completed Not Available Not Available Not Available Multiple Vitamin capsule Daily active Frequenc y: daily;Me dication Descript ion: multivit moser; Dosage:1 ; Route:or al; refills: 0 Not Available Not Available Not Available azithromy bladimir 250 mg tablet active Not Available Not Available No t Available aspirin 325 mg tablet Daily 2006 active Duration : 30 days;Gunner quency: daily;Me dication Descript ion: aspirin; Dosage:1 ; Route:or al; refills: 0; Quantity :30 tablet Not Available Not Available Not Available amiodaron e 200 mg tablet 12/18 completed Not Available Not Available Not Available metoprolo l succinate ER 50 mg tablet,ex tended release 24 hr 12/18 completed Not Available Not Available Not Available lisinopri l 20 mg tablet 12/18 completed Not Available Not Available Not Available prednison e 20 mg tablet TAKE 2 TABLETS ORAL ROUTE ONCE DAILY FOR 4 DAYS active Not Available Not Available No t Available isosorbid e mononitra te ER 30 mg tablet,ex tended release 24 hr 02/03 completed Not Available Not Available Not Available metoprolo l succinate ER 100 mg tablet,ex tended release 24 hr Daily active Not Available Not Available Not Available prednison e 5 mg tablet takes 1/2 tablet daily = 2.5mg 02/03 completed Not Available Not Available Not Available hydralazi ne 25 mg tablet 12/16 completed Not Available Not Available Not Available clopidogr el 75 mg tablet Daily 12/16 completed Not Available Not Available Not Available chlorthal idone 25 mg tablet active Not Available Not Available No t Available amlodipin e 5 mg tablet Daily 02/03 completed Not Available Not Available Not Available triamcino lone acetonide 0.1 % topical cream active Not Available Not Available Not Available butalbita l-acetami nophen-ca ffeine 50 mg-325 mg-40 mg tablet 12/18 completed Not Available Not Available Not Available ondansetr on 8 mg disintegr ating tablet 12/18 completed Not Available Not Available Not Available ketorolac 0.5 % eye drops 02/03 completed Not Available Not Available Not Available levothyro xine 100 mcg tablet active Not Available Not Available Not Available levothyro xine 88 mcg tablet One daily 02/03 completed Not Available Not Available Not Available amoxicill in 875 mg tablet 12/18 completed Not Available Not Available Not Available famotidin e 20 mg tablet TAKE 1 TABLET BY MOUTH EVERY 12 HOURS FOR 10 DAYS active Not Available Not Available No t Available prednisol one acetate 1 % eye drops,christina pension 02/03 completed Not Available Not Available Not Available lorazepam 0.5 mg tablet 12/18 completed Not Available Not Available Not Available triamcino lone acetonide 0.025 % topical cream 02/03 completed Not Available Not Available Not Available tamsulosi n 0.4 mg capsule One daily active Not Available Not Available No t Available meclizine 25 mg tablet 12/16 completed Not Available Not Available Not Available amlodipin e 10 mg tablet active Not Available Not Available Not Available doxycycli ne monohydra te 100 mg capsule 12/18 completed Not Available Not Available Not Available hydrocodo ne 7.5 mg-acetam inophen 325 mg tablet 12/18 completed Not Available Not Available Not Available prednison e 2.5 mg tablet 02/03 completed Not Available Not Available Not Available lisinopri l 10 mg tablet 12/16 completed Not Available Not Available Not Available losartan 25 mg tablet 12/18 completed Not Available Not Available Not Available nitroglyc les 0.4 mg sublingua l tablet Place 1 tablet by sublingu al route as needed. active Not Available Not Available No t Available budesonid e 0.5 mg/2 mL suspensio n for nebulizat ion Inhale 2 mL twice a day by nebuliza tion route as needed. active Pulmicor t Not Available Not Available Not Available hydrochlo rothiazid e 25 mg tablet Daily 2006 active Frequenc y: daily;Me dication Descript ion: hydrochl orothiaz arianna; Dosage:1 /2; Route:or al; refills: 0; Quantity :30 Not Available Not Available Not Available gabapenti n 100 mg capsule active Not Available Not Available Not Available nystatin 100,000 unit/gram topical powder APPLY TO THE AFFECTED AREA(S) BY TOPICAL ROUTE 2 TIMES PER DAY 2020 active Not Available Not Available Not Avai lable epinephri ne 0.3 mg/0.3 mL injection , auto-inje ctor PLEASE SEE ATTACHED FOR DETAILED DIRECTIO NS active Not Available Not Available No t Available albuterol sulfate HFA 90 mcg/actua tion aerosol inhaler active Not Available Not Available Not Available hydrocort isone 2.5 % topical ointment active Not Available Not Available Not Available lisinopri l 40 mg tablet Bedtime 12/16 completed Duration : 30 days;Gunner quency: hs;Medic ation Descript ion: lisinopr il; Dosage:1 ; Route:or al; refills: 5; Quantity :30 Not Available Not Available Not Available losartan 100 mg tablet active Not Available Not Available Not Available Lipitor 10 mg tablet Every night at bedtime 12/16 completed Frequenc y: qhs;Medi cation Descript ion: atorvast atin; Dosage:1 ; Route:or al; refills: 0; Quantity :30 tablet Not Available Not Available Not Available metformin ER 500 mg tablet,ex tended release 24 hr 2 tablets = 1000mg - BID active Not Available Not Available No t Available finasteri de 5 mg tablet 12/16 completed Not Available Not Available Not Available Calcium with Vitamin D 600 mg-125 unit tablet Take 2 tablets twice a day by oral route. active Not Available Not Available No t Available moxifloxa bladimir 0.5 % eye drops 02/03 completed Not Available Not Available Not Available vitamin B12 0.5 mg-folic acid 1 mg tablet Take 1 tablet every day by oral route. active Not Available Not Available No t Available Iron (ferrous sulfate) One Daily 12/18 completed Not Available Not Available Not Available Calcium 500 1200 mg Daily 12/18 completed Not Available Not Available Not Available Mucinex BID - as needed 02/03 completed Not Available Not Available Not Available budesonid e 90 mcg/actua tion breath activated powder inhaler Inhale 2 puffs twice a day by inhalati on route as needed. 12/16 completed Not Available Not Available Not Available Eliquis 5 mg tablet 12/18 completed Not Available Not Available Not Available Breo Ellipta 100 mcg-25 mcg/dose powder for inhalatio n 12/16 completed Not Available Not Available Not Available Anoro Ellipta 62.5 mcg-25 mcg/actua tion powder for inhalatio n active Not Available Not Available Not Available oxygen 2L at night only active Not Available Not Available No t Available albuterol sulf 90 mcg/actua tion breath activated powder inhaler,s ensor Inhale 2 puffs every 4 hours by inhalati on route as needed. active Not Available Not Available No t Available Vitals Date Recorded Body height Body mass index (BMI) Body weight Provider Name and Address Organization Details Last Updated DateTime 09/12/2024 167.64 cm 23.1 kg/m2 81220.71 g Kalli Ceballos [facility] 09/12/2024 15:09:22 Date Recorded Body height Body mass index (BMI) Body weight Provider Name and Address Organization Details Last Updated DateTime 06/06/2024 168.91 cm 23.2 kg/m2 51049.49 g Erin Mooney [facility] 06/06/2024 08:42:34 Date Recorded Body height Body mass index (BMI) Body weight Provider Name and Address Organization Details Last Updated DateTime 06/30/2021 167.64 cm 22.9 kg/m2 10290.12 g Dorothea Carr [facility] 06/30/2021 09:44:13 Social History Question Answer Notes LastModified by Organizat ion Details LastModified Time Tobacco Smoking Status Former Smoker started age 17, stopped 67 GOKUL Carmona [facility] 12/17/2019 13:21:20 What Is Your Level Of Caffeine Consumption? Moderate 1-2 C Coffee/day Information not available 12/17/2019 How Much Tobacco Do You Chew? None Information not available 05/02/2019 Which Illicit Or Recreational Drugs Have You Used? None Information not available 12/17/2019 Hard Of Hearing Or Deaf In One Or Both Ears? No Information not available 12/17/2019 Legally Blind In One Or Both Eyes? No Information not available 12/17/2019 Live Alone Or With Others? With Others Information not available 12/17/2019 What Was The Date Of Your Most Recent Tobacco Screening? 09/12/2024 [email or web address] Information not available 09/12/2024 Seat Belts Used Routinely Yes Information not available 12/17/2019 Smoke Alarm In Home Yes Information not available 12/17/2019 How Much Tobacco Do You Smoke? 1.5 PPD Information not available 12/17/2019 Do You Use Sunscreen Routinely? No Information not available 12/19/2019 How Many Years Have You Smoked Tobacco? 50 Information not available 12/17/2019 Sex: Unknown Functional Status Question Answer Note LastModified by Organizat ion Details LastModified Time What is your level of alcohol consumption? None Information not available 12/17/2019 Do you or have you ever used smokeless tobacco? Never used smokeless tobacco Information not available 05/02/2019 Are you currently employed? No Information not available 12/17/2019 Are you able to care for yourself? Yes Information not available 12/17/2019 What is your occupation? Retired Information not available 12/17/2019 Do you or have you ever used e-cigarettes or vape? Never used electronic cigarettes Information not available 05/02/2019 What is your exercise level? None Information not available 12/19/2019 Mental Status None recorded. Family History Relationship Description Onset Age of this Age Resolved Age Notes LastModified by Organization Details LastModified Time Son Diabetes mellitus [email or web address] Not available 2018 08:48:10 Son Hyperlipidem ia Not available 2019 11:43:24 Son Migraine Not available 12/19/2019 11:43:50 Mother Family history of malignant neoplasm cspickard Not available 2018 08:48:15 Mother Diabetes mellitus Not available 2019 11:42:34 Brother Heart disease Not available 2019 11:43:02 Brother Hypertensive disorder Not available 2019 11:43:36 Brother Myocardial infarction Not available 12/18 11:42:59 Medical History Condition Response Coronary Artery Disease Y Arthritis Y Chronic Obstructive Pulmonary Disease Y High Cholesterol Y Cancer Y Urinary Tract Infection Y Stroke Y Hypertension Y Immunizations Vaccine Type Date Status Note Provider Nam e and Address Organization Details Recorded Time Influenza, split virus, quadrivalent, preservative [address] [facility] 12/19/2019 11:33:02 Past Encounters Encounter ID Performer Location Encounter Start Date Encounter Closed Date Diagnosis/Indication Diagnosis SNOMED-CT Code Diagnosis ICD10 Code Diagnosis Note [id number] [facility] [place] [address] 11/07/2016 19:20:51 11/07/2016 19:20:51 [id number] SANDOR VICTOR MD UROLOGY SB CLOSED [address] [place] [address]83[address]613 1 05/02/2019 08:25:53 05/02/2019 09:52:04 Benign prostatic hyperplasia with outflow obstruction 588113928 N40.1 Sami hematuria 18224271 5 R31.0 History of malignant neoplasm of bladder 970550158 Z85.51 [id number] SANDOR VICTOR MD SURGERY SCHEDULE [address] [place] [address]287-216 1 05/15/2019 11:11:10 05/15/2019 11:15:00 [id number] [place] [address] [place] [address]-395 1 12/19/2019 11:07:19 12/19/2019 13:15:06 Severe chronic obstructive pulmonary disease 373002123 J44.9 anoro pred 2.5 mg daily oxygen at night not aware of PFT results but sounds like had it within past year Long-term current use of anticoagulant 470295687 Z79.01 not on eliquis-wa s on for afib Coronary arteriosclerosis in [place] artery 4636945297 107 I25.10 cabg 2019-[facility] on full dose asa 325 statin not aware of EF Mixed hyperlipidemia 267 392390 E78.2 statin Hypothyroidism 28416870 E03.9 hypothyroi d-check tsh Essential hypertension 90919865 I10 can check less often if they wish Type 2 jose betes mellitus without complication 321316642 E11.9 takes metformin he is on prednisone so will see some resistance there no matter what lifestyle check a1c macr pending lipid pending Benign pro static hyperplasia without outflow obstruction 016725559 N40.0 tamsulosin Atrial fibrillation 4943 6004 I48.91 was in hosp stay-curre ntly NSR Iron defic iency anemia 67779399 D50.9 Vitamin B1 2 deficiency (non anemic) 97064574 E53.8 [id number] SANDOR VICTOR MD UROLOGY CLOSED [address] [place], [place] [address] 01/21/2020 14:47:26 01/21/2020 16:02:13 Benign prostatic hyperplasia with outflow obstruction 474518919 N40.1 History of malignant neoplasm of bladder 069442159 Z85.51 Urgent charu cyril to urinate 19114224 R39.15 [id number] NEDA RAJPUT MD UROLOGY SB [facility] [address] [place], [place] [address] 02/03/2021 10:39:29 02/03/2021 12:36:47 History of malignant neoplasm of bladder 274306950 Z85.51 Hemospermia 96154589 R36 .1 Lower urin quincy tract symptoms due to benign prostatic hypertrophy 2494749995 9101 N40.1 Screening for malignant neoplasm of prostate 940949996 Z12.5 Itching of skin 64901665 0 L29.9 [id number] KERRY ARNDT JR, MD [address] ,[address] [place] [address] 5 06/30/2021 09:17:13 06/30/2021 12:05:12 Pruritic disorder 887617245 L29.9 Malignant neoplasm of urinary bladder 014803594 C67.9 Benign pro static hyperplasia without outflow obstruction 111345526 N40.0 [id number] KERRY ARNDT JR, MD SURGERY SCHEDULE [address] [place] [address] 1 10/12/2022 13:15:40 10/12/2022 13:16:23 Malignant neoplasm of urinary bladder 920374098 C67.9 [id number] KERRY ARNDT JR, MD [facility] [address] [place] [address] [address] [place] [address] 0 06/06/2024 08:19:29 06/06/2024 09:26:08 Renal mass 686346577 N28.89 Malignant neoplasm of urinary bladder 673389586 C67.9 [id number] KERRY ARNDT JR, MD SURGERY SCHEDULE [address] [place] [address] 1 07/26/2024 12:32:53 07/26/2024 12:34:04 Malignant neoplasm of urinary bladder 946919320 C67.9 [id number] KERRY ARNDT JR, MD [facility] [address],[place] [address] 0 09/12/2024 14:46:43 09/17/2024 06:23:33 Benign prostatic hyperplasia 788450113 N40.1 Continue treatment with tamsulosin . Ordered PSA test to get a baseline. Monitor symptoms and adjust management as needed based on results and symptom progressio n. Congenital renal cyst 36 09119505 20684 Q61.02 Imaging indicates stable renal cysts. Continue monitoring with routine imaging to evaluate any future changes. No interventi on necessary at this time due to the absence of concerning features. Malignant neoplasm of urinary bladder 496900984 C67.9 Continue regular surveillan ce cystoscopy as current imaging and cystoscopy indicate stable disease with no recurrence . Health Concerns Section Related Observation LastModified by Organization Detai ls LastModified Time None Recorded Concern Status LastModified by Organization Details LastModified Time None Recorded Advance Directives Directive None Recorded Payers Insurance Date Sequence Insurance Name Policy Number Policy Florentino Covered Member ID Florentino Member ID Guarantor Name 09/12/2024 1 [place] Ritchie Alexandra [id number] Ritchie Costello Des 09/12/2024 2 [facility] [employer] - PLAN G (MEDICARE SUPPLEMENT) Ritchie Alexandra [id number] Ritchie Alexandra Notes Date Note Type Note Provider Name and Address Organization Details Recorded Time 06/30/2021 text/html Diagnoses: BPH, bladder cancer, gross hematuria, diabetes 75-year-old male who was a patient of Dr. Victor. He has a history of BPH and bladder cancer. He underwent TURBT and prostate procedure by Dr. Tadeo in 2004. 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 He had gross hematuria. Cystoscopy in [address] scan in 2019 showed bilateral renal cysts. Urine cytology was negative. He takes tamsulosin for BPH. He quit smoking in 2011. He is retired. patient complains of itching on the penis which is intermittent. There are no skin color changes or erythema. KERRY ANRDT JR, MD [address] [place] [address], [phone], [facility] 07/07/2021 20:53:42 10/12/2022 text/html Diagnoses: BPH, bladder cancer, gross hematuria, diabetes 75-year-old male who was a patient of Dr. Victor. He has a history of BPH and bladder cancer. He underwent TURBT and prostate procedure by Dr. Tadeo in 2004. 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 He had gross hematuria. Cystoscopy in [address] scan in 2019 showed bilateral renal cysts. Urine cytology was negative. He takes tamsulosin for BPH. He quit smoking in 2011. He is retired. patient complains of itching on the penis which is intermittent. There are no skin color changes or erythema. KERRY ARNDT JR, MD [address] [place] [address], [phone], [facility] 10/12/2022 15:26:54 06/06/2024 text/html Diagnoses: BPH, bladder cancer, gross hematuria, diabetes 75-year-old male who was a patient of Dr. Victor. He has a history of BPH and bladder cancer. He underwent TURBT and prostate procedure by Dr. Tadeo in 2004. 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 He had gross hematuria. Cystoscopy in [address] scan in 2019 showed bilateral renal cysts. Urine cytology was negative. Patient has been noncompliant with follow up with regard to surveillance cysto Recent right renal US shows renal cyst, not simple He takes tamsulosin for BPH. He quit smoking in 2011. He is retired. patient complains of itching on the penis which is intermittent. There are no skin color changes or erythema. KERRY ARNDT JR, MD [address] [place] [address], [phone], [facility] 06/09/2024 20:26:00 07/26/2024 text/html Diagnoses: BPH, bladder cancer, gross hematuria, diabetes 75-year-old male who was a patient of Dr. Victor. He has a history of BPH and bladder cancer. He underwent TURBT and prostate procedure by Dr. Tadeo in 2004. 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 He had gross hematuria. Cystoscopy in [address] scan in 2019 showed bilateral renal cysts. Urine cytology was negative. Patient has been noncompliant with follow up with regard to surveillance cysto Recent right renal US shows renal cyst, not simple He takes tamsulosin for BPH. He quit smoking in 2011. He is retired. patient complains of itching on the penis which is intermittent. There are no skin color changes or erythema. KERRY ARNDT JR, MD [address] [place] [address], [phone], [facility] 07/26/2024 16:11:04 09/12/2024 text/html The patient is a 79-year-old male presenting with surveillance of previously diagnosed bladder cancer, renal cysts, and management of benign prostatic hyperplasia. 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 Surveillance with cystoscopy in July 2024 showed no recurrence of the tumor. He has stable cysts on both kidneys as revealed by a CT scan in July 2024, with no notable changes from prior imaging. The patient's BPH is managed with tamsulosin. A PSA test has been requested to establish a current baseline. Diagnoses: BPH, bladder cancer, gross hematuria, diabetes 75-year-old male who was a patient of Dr. Victor. He has a history of BPH and bladder cancer. He underwent TURBT and prostate procedure by Dr. Tadeo in 2005. 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 He had gross hematuria. Cystoscopy in [address] scan in 2019 showed bilateral renal cysts. Urine cytology was negative. Patient has been noncompliant with follow up with regard to surveillance cysto Recent right renal US shows renal cyst, not simple He takes tamsulosin for BPH. He quit smoking in 2011. He is retired. patient complains of itching on the penis which is intermittent. There are no skin color changes or erythema. KERRY ARNDT JR, MD [facility] [place], [phone], [facility] 09/16/2024 08:21:28
[2025-01-14 13:35] VITALS: BMI 22.0
== END 2025-01-14 23:59 | disposition home or self-care (01) ==
LOC: DIETICIAN 11:34
PROVIDERS: PCP Family Medicine; Visit Provider Family Medicine
DX: E11.9 Type 2 diabetes mellitus without complications (principal)
CPT/HCPCS: 97802

== ENCOUNTER 2025-04-14 10:00 | Outpatient (CLI) | payer MEDICARE, OTHER, SELFPAY ==
--- OUTSIDE RECORDS SUMMARY | 2016-08-19 05:05 | XMS_ITS | Continuity of Care Document ---
Author Organization [facility] Address [address] [place] [phone] Phone Care Team Providers Care Supervisor Electronic Coils Name Role Phone Jacinda Ryder OD Unavailable Unavailable Allergies, Adverse Reactions, Alerts Substance Reaction Status Criticality No Known Allergies Active No Inform ation Medications Medication Instructions Dosage Effective Dates (start - stop) Status Comments Ocuflox 0.3 % eye drops Use QID as directed. - Active 47 [id number] sx dates: 08/11/16 and 08/18/16 prednisolone acetate 1 % eye drops,suspension instill 1 drop by ophthalmic route 4 times every day into operative eye starting after surgery - Active 47 [phone] sx dates: 08/11/16 and 08/18/16 Prolensa 0.07 % eye drops Use QD as directed. May sub Ilevro 0.3%, 3ml. Use QD as directed. - Active [id number] sx dates: 08/11/16 and 08/18/16 Vascepa 1 [...] Provider Providers Copied on Encounter Ian Sanchez [facility], [address] [place] [address], [facility] [place], [id number], [place] tel:[phone] [facility] post op (chief complaint) P/Std IOL-No Laser 7 Aleksey Monaco. [address] [place] [address], [address] [place] [address] , . tel:[phone] Referring Provider: Ioana Manjarrez, [address], [place], [address]. tel:[phone] [facility], [address] [place] [address], [address] [place] [address], tel:[phone] [place] 2nd eye OS (chief complaint) Combined forms of age-related cataract, left eye 7 Mathieu Alcantara. [address] [place] [address], [address] [place] [address] , . tel:[phone] Referring Provider: Ioana Manjarrez, [address] [address], [place], [place], [facility]. tel:[phone] [facility], [address] [place] [address], [address] [place] [address], tel:[phone] [facility] No Information Jad Lopez. [address] [place] [address], [address] [place] [address] , . tel:[phone] Referring Provider: Ioana Manjarrez, [address], [place], [place], [facility]. tel:[phone] [facility], [address] [place] [address], [id number], tel:[phone] LION Guillen [facility] No Information 7 Jad Lopez. [address] [place] [address], [address] [place] [address] , . tel:[phone] Referring Provider: John Blanca, [address] [place] [address], [id number]. tel:[phone] [facility], [address] [place] [address], [id number], tel:[phone] LION HODGSON 1 day STD w/o Laser OD (chief complaint) P/Std IOL-No Laser 7 Ryder Jacinda. [address] [place] [address], [address] [place] [address] , . tel:[phone] Referring Provider: [address] [place] [address], [place], [place], [facility]. tel:[phone] [facility], [address] [place] [address], [id number], tel:[phone] [facility] No Information 7 Piracha John. [address] [place] [address], [address] [place] [address] , . tel:[phone] Referring Provider: [address] [place] [address], [place], [place], [facility]. tel:[phone] OFFICE/OUTPA TIENT VISIT, EST [facility], [address] [place] [address], [id number], tel:[phone] LION HODGSON Over refract (chief complaint) Combined Cataract- BilateralPost RK 6 Ryder Jacinda. [address] [place] [address], [id number] , . tel:[phone] Referring Provider: [address] [address], [place], [place], [facility]. tel:[phone] Ian [facility], [address] [place] [address], [id number], tel:[phone] LION HODGSON Cat Eval OU (chief complaint) Post RKCombined Cataract- Bilateral Nov 6 Piracha John. [address] [place] [address], [address] [place] [address] , . tel:[phone] Referring Provider: [address], [place], [address]. tel:[phone] Ian [facility] [place] [facility], [address] [place] [address], [id number], tel:[phone] [facility] No Information 0201 6 Jad Lopez. [address] [place] [address], [id number] , . tel:[phone] Referring Provider: John Blanca, [address] [place] [address], [id number]. tel:[phone] Ian [facility] [place] [facility], [address] [place] [address], [id number], tel:[phone] [facility] decreased vision (chief complaint) floaters (chief complaint) diabetic type 2 (chief complaint) Age-related nuclear cataract, bilateralPunctat e keratitis, left eyePost RK 0201 6 Jad Lopez. [address] [place] [address], [id number] , . tel:[phone] Referring Provider: Ioana Manjarrez, [address], [place], [address]. tel:[phone] Family History Family Member Type Diagnosis Age At Onset Father Problem (finding) Cardiovascular disease Immunizations Vaccine Date Status Comments Flu (split) (3 yrs or older) administered Source: Other Provider Flu (split) (3 yrs or older) administered Source: Source Unspecified Payers Payer name Insurance type Covered libertarian ID Authoriza tion(s) Medicare [place] MB [id number] [place] Blue And [facility] [id number] Social History Type Description Quantity Date Captured [...] Peterson MD [address] [place], [phone] Ordered: Referrals: Ophthalmology. Ioana Peterson MD ordered [...] Cat Eval OU. Pt states that his assistant operator suggested that she shouldn't drive at night [...] with any questions and concerns. CMH25.812 cataract 39049 Cos/iol Std lens no laser prev refractive, [...]
[2025-04-14 16:00] LABS: Albumin Level 4.2 g/dl (3.5-5.0); Chloride 104 mmol/L (98-107); Potassium 5.2 mmoL/L (3.5-5.1); Sodium 137 mmol/L (136-145)
[2025-04-14 16:03] LABS: Alanine Aminotransferase 14 U/L (12-78); Albumin/Globulin Ratio 1.8 (1.1-1.8); Alkaline Phosphatase 88 U/L (38-126); Anion Gap 12.2 mEq/L (5-15); Aspartate Amino Transferase 32 U/L (17-59); Bilirubin,Total 1.1 mg/dl (0.2-1.3); Blood Urea Nitrogen 34 mg/dl (9-20); Carbon Dioxide 26 mmol/L (22.0-30.0); Cholesterol 159 mg/dl (140-200); Creatinine,Serum 1.60 mg/dl (0.66-1.25); Estimated Glomerular Filt Rate 42 ml/min (>60); GFR (African American) 51 ML/MIN (>60); Globulin 2.3 g/dL (1.3-3.2); Total Protein,Serum 6.5 g/dl (6.3-8.2); Triglycerides 100 mg/dl (30-150)
[2025-04-14 16:04] LABS: Calcium 10.5 mg/dl (8.4-10.2); Glucose 148 mg/dl (74-100); HDL Cholesterol 68 mg/dl (40-60)
[2025-04-14 16:21] LABS: Free T4 (Free Thyroxine) 1.98 ng/dl (0.78-2.19)
[2025-04-14 16:33] LABS: Thyroid Stimulating Hormone 9.52 uIU/mL (0.465-4.68)
[2025-04-14 16:38] LABS: Hematocrit 36.9 % (42.0-52.0); Hemoglobin 13.0 g/dL (14.1-18.0); Immature Granulocytes % 0.2 %; Mean Corpuscular HGB Conc 35.2 g/dL (31.8-35.4); Mean Corpuscular Hemoglobin 32.9 pg (27.0-31.2); Mean Corpuscular Volume 93.4 fl (80-94); Nucleated Red Blood Cells % 0 %; Platelet Count 592 K/mm3 (142-424); Red Blood Count 3.95 M/mm3 (4.60-6.20); Red Cell Distribution Width-SD 57.9 fL; White Blood Count 9.5 K/mm3 (4.8-10.8)
[2025-04-14 18:38] LABS: Hemoglobin A1C 7.5 % (4.0-6.0)
--- OUTSIDE RECORDS SUMMARY | 2025-04-15 09:30 | XMS_ITS | Clinical Summary ---
Author Organization [facility] Address [address] [place] [address] Care Team Providers Care Health And Fitness Instructor Name Role Phone Javon Howard MD Primary Care Provider [phone] Allergies No known active allergies Medications Ferrous Sulfate (IRON) 325 (65 FE) MG tablet Take 1 tablet by mouth Daily. NOON 6 Active metFORMIN XR (GLUCOPHAGE-XR) 500 MG 24 hr tablet Take 2 tablets by mouth 2 (Two) Times a Day. 6 Active tamsulosin (FLOMAX) 0.4 MG capsule 24 hr capsule Take 2 capsules by mouth Every Night. Active aspirin 81 MG tablet Take 1 tablet by mouth Daily. Active albuterol (PROVENTIL) (2.5 MG/3ML) 0.083% nebulizer solution Take 2.5 mg by nebulization Every 4 (Four) Hours As Needed for Wheezing. Active budesonide (PULMICORT) 0.5 MG/2ML nebulizer solution Take 2 mL by nebulization 2 (Two) Times a Day. NOON AND MIDNIGHT Active levothyroxine sodium (TIROSINT) 100 MCG capsule Take 1 capsule by mouth Daily. Active nitroglycerin (NITROSTAT) 0.[address] 1 tablet under the tongue Every 5 (Five) Minutes As Needed for Chest Pain. Take no more than 3 doses in 15 minutes. Active vitamin B-12 (CYANOCOBALAMIN) 500 MCG tablet Take 1 tablet by mouth Daily. NOON Active umeclidinium-carl anterol (ANORO ELLIPTA) 62.5-25 MCG/INH aerosol powder inhaler Inhale 1 puff Daily. Active Calcium-Magnesiu m-Vitamin D (CALCIUM 1200+D3 PO) Take 1 capsule by mouth 2 (Two) Times a Day. D3 1000IU; NOON AND 8PM Active guaiFENesin (MUCINEX) 600 MG 12 hr tablet Take 2 tablets by mouth 2 (Two) Times a Day As Needed for Cough. Active vitamin C (ASCORBIC ACID) 500 MG tablet Take 1 tablet by mouth Daily. Active O2 (OXYGEN) Inhale 2 L/min Every Night. Active metoprolol succinate XL (TOPROL-XL) 100 MG 24 hr tablet Take 1 tablet by mouth Daily. Active atorvastatin (LIPITOR) 40 MG tablet Take 1 tablet by mouth Every Night. 90 tablet 3 2 Active famotidine (Pepcid) 20 MG tabletIndication s:Nausea Take 1 tablet by mouth 2 (Two) Times a Day As Needed for Heartburn (nausea). 180 tablet 3 4 Active amLODIPine (NORVASC) 10 MG tablet TAKE 1 TABLET BY MOUTH DAILY 90 tablet 3 5 Active losartan (COZAAR) 100 MG tabletIndication s:Essential hypertension TAKE 1 TABLET BY MOUTH DAILY 90 tablet 3 5 Active hydrOXYzine (ATARAX) 25 MG tablet Take 1 tablet by mouth. 5 Active Active Problems Problem Noted Date Diagnosed Date Congenital renal cyst 09/16/2024 Abnormal PFT 08/27/2024 Renal mass 06/09/2024 Dyspnea on exertion 04/24/2024 Hypoxia 04/24/2024 Mucopurulent chronic bronchitis 04/24/[address] nodules on CT 04/24/2024 On home oxygen therapy 04/24/2024 Stopped smoking with greater than 30 pack year h istory 04/24/2024 CAD (coronary artery disease) 04/24/2024 Upper GI bleed 03/10/2024 UGIB (upper gastrointestinal bleed) 03/09/2024 Acute upper GI bleeding 03/08/2024 Acute blood loss anemia 03/08/2024 Hematochezia 03/08/2024 Malignant neoplasm of urinary bladder 07/07/2021 Coronary arteriosclerosis in [place] artery 12/18 Iron deficiency anemia 12/19/2019 Vitamin B12 deficiency (non anemic) 12/19/2019 Mixed hyperlipidemia 12/19/2019 senior living current use of anticoagulant 0 Benign prostatic hyperplasia without urinary obs truction 12/19/2019 Essential hypertension 12/19/2019 Hypothyroidism 12/19/2019 senior living (current) use of anticoagulants 2019 Type 2 diabetes mellitus without complication Severe chronic obstructive pulmonary disease 07/2020 Heart disease 12/17/2019 AF RVR 05/31/2019 Hypotension 05/31/2019 Hypothyroidism on Rx 05/31/2019 CABG 05/28/19 05/20/2019 Overview (05/31/2019): a. Probably asymptomatic. b. Detected by coronary artery calcifications. c. Abnormal nuclear MPS, May 2015: i. Inferior wall ischemia. d. Normal left ventricular systolic function by catheterization, 05/29/2015. e. ACS INNA to Mid-CX, Normal LV function. f. Two-vessel involvement by catheterization, 05/29/2015 i. Extreme calcification. ii. PTCA and INNA of proximal circumflex and PTCA distal circumflex g. Cardiac catheterization, 03/02/2016: EF 60%. 90% restenotic lesion of the mid circumflex stented with 3.0 x 18 mm drug-eluting stent and reduced to no significant residual disease. Patent stent of the proximal circumflex. Moderate diffuse disease of the RCA. h. 05/14/2019 MPS: HIGH RISK STUDY with ischemia, hypotension, [place]. i. 05/17/2019 LHC: Severe single-vessel CAD characterized by areas of both diffuse and focal stenoses spanning the proximal to distal severely calcified dominant RCA, EF 70%; No percutaneous revascularization options. j. 05/28/[address] Calderon SVG to PDA, SVG to posterior lateral RCA Chronic obstructive pulmonar y disease with acute exacerbation 08/10/2018 ZACKARY (acute kidney injury) 08/10/2018 Cholelithiasis 08/10/2018 Anemia 08/10/2018 Acute on chronic respiratory failure with hypoxi a 08/10/2018 Mycobacterium avium complex 07/24/2017 Bronchitis 03/20/2017 Arthritis 04/28/2016 ACS (acute coronary syndrome) 03/01/2016 Coronary artery disease 02/04/2016 Overview (04/29/2016): 1. Coronary artery disease: a. Probably asymptomatic. b. Detected by coronary artery calcifications. c. Abnormal nuclear MPS, May 2015: i. Inferior wall ischemia. d. Normal left ventricular systolic function by catheterization, 05/29/2015. e. Two-vessel involvement by catheterization, 05/29/2015: i. Extreme calcification. ii. PTCA and INNA of proximal circumflex and PTCA distal circumflex. iii. Inability to cross 70% proximal RCA stenosis due to extreme calcium and tortuosity. Hypertension 02/04/2016 Dyslipidemia 02/04/2016 COPD 02/04/2016 Overview (05/31/2019): History of bladder cancer 02/04/2016 History of CVA 02/04/2016 Overview (05/31/2019): 1. History of cerebrovascular accident, 2005: a. Currently on Plavix. T2DM 02/04/2016 Overview (05/31/2019): PAD 02/04/2016 Lumbar disc disease Hyperlipidemia Resolved Problems Problem Noted Date Diagnosed Date Resolved Date Acute on chronic respiratory failure with hypoxemia 10/24/2018 10/27/2018 Peripheral vascular disease 12/21/2015 02/04/2016 Encounters Date Type Department Care Team Description 02/12/2025 1:15 PM EDT Office Visit [facility] [address] [address] Stephanie Merchant, RUDDY Hepatic cyst (Primary Dx); Multiple renal cysts; History of colonic polyps; Diverticulosis; History of nausea; Anemia, unspecified type; Abnormal kidney function 02/12/2025 Travel from Last 3 Months Immunizations Immunization Administration Dates Next Due FluMist 2-49yrs 08/07/2015 Fluzone High-Dose 65+YRS 06/12/2024,06/02/2021 Fluzone High-Dose 65+yrs 05/12/2023 Pneumococcal Polysaccharide (PPSV23) 08/07/2015 Family History Medical History Relation Name Comments Heart attack Brother Diabetes Father Cancer Mother malignant neopl asm Diabetes Mother Hypertension Mother Diabetes Sister Colon cancer Neg Hx Relation Name Status Comments Brother Father Mother Sister Social History Tobacco Use Types Packs/Day Years Used Date Smoking Tobacco: Former Cigarettes 2 25 0 02/03/1987 - 02/04/2012 Smokeless Tobacco: Never Tobacco Cessation:Counseling Given: Not Answered Alcohol Use Standard Drinks/Week Comments No 0 (1 standard drink = 0.6 oz pur e alcohol) [facility] Utilities Answer Date Recorded In the past 12 months has th e [place], gas, oil, or water [employer] threatened to shut off services in your home? No 03/10/2024 AUDIT-C Answer Date Recorded Q1: How often do you have a drink containing alcohol? Never 03/09/2024 Q2: How many drinks containi ng alcohol do you have on a typical day when you are drinking? Patient does not drink Q3: How often do you have si x or more drinks on one occasion? Never 03/09/2024 Overall Financial Resource Strain (CARDIA) Answe r Date Recorded How hard is it for you to pa y for the very basics like food, housing, medical care, and heating? Not hard at all 03/10/2024 [facility] - Occupational Stress Questionnaire Answer Date Recorded Do you feel stress - tense, restless, nervous, or anxious, or unable to sleep at night because your mind is troubled all the time - these days? Not at all 03/10/2024 Exercise Vital Sign Answer Date Recorde d On average, how many days pe r week do you engage in moderate to strenuous exercise (like a brisk walk)? 0 days 03/10/2024 On average, how many minutes do you engage in exercise at this level? 0 min 03/10/2024 Hunger Vital Sign Answer Date Recorded Within the past 12 months, y ou worried that your food would run out before you got the money to buy more. Never true 03/10/20 24 Within the past 12 months, t he food you bought just didn't last and you didn't have money to get more. Never true 03/10/2024 PRAPARE - Transportation Answer Date Re corded In the past 12 months, has l ack of transportation kept you from medical appointments or from getting medications? No 11/2023 In the past 12 months, has l ack of transportation kept you from meetings, work, or from getting things needed for daily living? No 03/10/2024 Abuse Screen Answer Date Recorded Feels Unsafe at Home or Work/School no 03/09/2024 Feels Threatened by Someone no 10/2023 Does Anyone Try to Keep You From Having Contact with Others or Doing Things Outside Your Home? no 03/09/2024 Physical Signs of Abuse Present no 03/09/2024 Housing Stability Answer Date Recorded Current Living Arrangements home 11/2023 Potentially Unsafe Housing Conditions none 03/10/2024 Family and Community Support Answer Richard e Recorded If for any reason you need h elp with day-to-day activities such as bathing, preparing meals, shopping, managing finances, etc., do you get the help you need? I don't need any help 03/10/2024 How often do you feel lonely or isolated from those around you? Never 03/10/2024 Employment Answer Date Recorded Do you want help finding or keeping work or a job? I do not need or want help 03/10/2024 Disabilities Answer Date Recorded Difficulty Concentrating, Remembering or Making Decisions yes 03/09/2024 Difficulty Managing Errands Independently no 03/09/2024 Education Answer Date Recorded Do you want help with school or training? For example, starting or completing job training or getting a high school diploma, GED or equivalent No 03/10/2024 Preferred Language Surinamese 03/10/2024 PHQ-2 Answer Date Recorded Retired PHQ-9: Brief Depression Severity Measure Score 0 03/10/2024 Sex and Gender Information Value Date Recorded Sex Assigned at Not on file Legal Sex Male 12:54 PM EDT Gender Identity Not on file Sexual Orientation Not on file Occupation Industry Job Start Date Job End Date Retired Not on file Not on file Not on file Last Filed Vital Signs Vital Sign Reading Time Taken Comments Blood Pressure 120/70 02/12/2025 1:01 PM EDT Pulse 54 02/12/2025 1:01 PM EDT Temperature 36.6 C (97.9 F) 03/12/2024 10:57 AM EDT Respiratory Rate 18 03/12/2024 10:57 AM EDT Oxygen Saturation 97% 02/12/2025 1:01 PM EDT Inhaled Oxygen Concentration - - Weight 60.3 kg (133 lb) 02/12/2025 1:01 PM EDT Height 168.9 cm (5' 6.5 ) 02/12/2025 1:01 PM EDT Body Mass Index 21.15 02/12/2025 1:01 PM EDT Plan of Treatment Upcoming Encounters Date Type Department Care Team (Late st Contact Info) Description 05/07/2025 9:00 AM EDT Office Visit [facility] [address] [place] [phone] Nguyễn Rain MD [address] [facility] [address] [place] [address] 02/04/2026 1:15 PM EDT Office Visit [facility] [address] [facility] [address] [place] [id number] Stephanie Merchant APRN [address] [facility] [address] [place], [place] [id number] Health Maintenance Due Date Last Done Comments DIABETIC EYE EXAM 1957 DIABETIC FOOT EXAM 1957 URINE MICROALBUMIN-CREATININ E RATIO (uACR) 1957 TDAP/TD VACCINES (1 - Tdap) 1966 COLOGUARD 1992 COLON CANCER SCREENING 5 YEA R SIGMOIDOSCOPY 1992 CT COLONOGRAPHY 1992 FIT Testing (1 year) 1992 ZOSTER VACCINE (1 of 2) 1997 Pneumococcal Vaccine 50+ (2 of 2 - PCV) 08/07/2016 08/07/2015 ANNUAL WELLNESS VISIT 11/03/2016 HEPATITIS C SCREENING 11/03/2016 HEMOGLOBIN A1C 11/26/2019 05/27/2019, 05/07, 10/24/2018, Additional history exists LIPID PANEL 05/17/2020 05/17/2019, 02/05, 05/29/2015 LUNG CANCER SCREENING 06/09/2020 06/09/2019, 017 RSV Vaccine - Adults (1 - 1- dose 75+ series) 2022 FECAL OCCULT BLOOD TEST 03/08/2025 03/08/2024, 06/05 COVID-19 Vaccine (2024-2 6 season) 2025 07/09/2021, 10/10/2020, 09/19/2020 INFLUENZA VACCINE 05/07/2025 06/12/2024, , 06/02/2021, Additional history exists COLONOSCOPY 03/10/2029 03/10/2024, 03/10/2024 COLORECTAL CANCER SCREENING 03/10/2029 Medical Devices Implanted Type Area Management Accounts Manager Device Identifier Shelf Expiration Date Model / Serial / Lot Markr Malgorzata Radiomark Disk Ro Carmen - [id number] Implanted:Qty : 1 on 05/28/2019 by Nguyễn Calderon MD at [facility] Implant [employer] [id number] / / Dev Clip Endo [id number] Contrl Rot 235cm - [id number] Implanted:Qty : 1 on 03/10/2024 by Quinn Paz MD at [facility] Implant N/A: Sigmoid Colon [employer] 11/06/2026 [id number] / / [id number] Dev Clip Hemo Resolution 235cm 2.8mm - [id number] Implanted:Qty : 4 on 03/11/2024 by Quinn Paz MD at [facility] Implant N/A: Sigmoid Colon [employer] 11/06/2026 [id number] / / [id number] Description:Sigmoid polyp si te Stent Xience 5 Rx 3x18mm - [id number] Implanted:Qty : 1 on 03/02/2016 by Sabra Martel MD at [facility] [employer] 11/02/2018 [id number] / / [id number] Procedures Procedure Name Priority Date/Time Associated Diagnosis Comments COLONOSCOPY 03/10/2024 8:48 AM EDT POCT OCCULT BLOOD STOOL STAT 03/08/2024 11:[address] ANGIOGRAM CHEST STAT 06/09/2019 2: 00 PM EST HEMOGLOBIN A1C Routine 05/27/2019 12:50 PM EDT CAD in [place] artery LIPID PANEL STAT 05/17/2019 8:22 AM EDT from Last 3 Months or Most Recently Relevant to Health Maintenance Results * Colonoscopy (03/10/2024 8:48 AM EDT) Quinn Paz MD INTERFACE NEEDS Final Result * (ABNORMAL) POC Occult Blood Stool (03/08/2024 11:25 PM EDT) Fecal Occult Blood Positive(A ) Positive Control Negative Control Stool Ace Montalvo MD POINT OF CARE TEST ORDERABLES Fi nal Result * CT Angiogram Chest (06/09/2019 2:00 PM EST) Anatomical Region Laterality Modality Chest, Vascular N/A Computed Tomogra phy 06/09/2019 2:15 PM EST Impressions 06/10/2019 11:50 AM EST 1. No evidence of pulmonary embolus. 2. Expected postop changes of recent median sternotomy. Very small pericardial effusion. 3. Symmetric small to moderate free flowing bilateral pleural effusions, and minimal associated bilateral lower lobe discoid atelectasis. E: 06/10/2019 This report was finalized on 06/10/2019 11:[address] Gregor Voss MD. Narrative 06/10/2019 11:50 AM EST EXAMINATION: CT ANGIOGRAM CHEST- INDICATION: Shortness of air and weakness, status post CABG, rule out PE. TECHNIQUE: 3 mm post IV contrast images through the chest with sagittal and coronal 10 mm 2-D reconstructions. The radiation dose reduction device was turned on for each scan per the ALARA (As Low as Reasonably Achievable) protocol. COMPARISON: 02/28/2017 low-dose chest CT scan. FINDINGS: Patient history indicates recent CABG, 12 days ago, now with increasing shortness of breath. Mediastinal window images show expected postoperative changes of median sternotomy. There is mild retrosternal fat stranding but no evidence of significant hematoma. There is a relatively small pericardial effusion. There are symmetric, small to moderate pleural effusions. There is good contrast opacification of the pulmonary arteries. No filling defects are seen to suggest pulmonary embolic disease. Mild focal contour irregularity of the aortic arch is again noted. No aortic dissection or discrete aneurysm is seen. Lung window images show upper lobe bullous change. There is only trace discoid atelectasis associated with pleural effusions. Lungs appear clear elsewhere. Included images of the upper abdomen show no significant abnormalities of visualized portions of the liver, gallbladder, pancreatic tail, adrenal glands or upper poles. There are multiple bilateral renal cysts. Procedure Note VossGregor perez MD - 06/10/2019 EXAMINATION: CT ANGIOGRAM CHEST- INDICATION: Shortness of air and weakness, status post CABG, rule out PE. TECHNIQUE: 3 mm post IV contrast images through the chest with sagittal and coronal 10 mm 2-D reconstructions. The radiation dose reduction device was turned on for each scan per the ALARA (As Low as Reasonably Achievable) protocol. COMPARISON: 02/28/2017 low-dose chest CT scan. FINDINGS: Patient history indicates recent CABG, 12 days ago, now with increasing shortness of breath. Mediastinal window images show expected postoperative changes of median sternotomy. There is mild retrosternal fat stranding but no evidence of significant hematoma. There is a relatively small pericardial effusion. There are symmetric, small to moderate pleural effusions. There is good contrast opacification of the pulmonary arteries. No filling defects are seen to suggest pulmonary embolic disease. Mild focal contour irregularity of the aortic arch is again noted. No aortic dissection or discrete aneurysm is seen. Lung window images show upper lobe bullous change. There is only trace discoid atelectasis associated with pleural effusions. Lungs appear clear elsewhere. Included images of the upper abdomen show no significant abnormalities of visualized portions of the liver, gallbladder, pancreatic tail, adrenal glands or upper poles. There are multiple bilateral renal cysts. IMPRESSION: 1. No evidence of pulmonary embolus. 2. Expected postop changes of recent median sternotomy. Very small pericardial effusion. 3. Symmetric small to moderate free flowing bilateral pleural effusions, and minimal associated bilateral lower lobe discoid atelectasis. E: 06/10/2019 This report was finalized on 06/10/2019 11:[address] Gregor Voss MD. Luis Botello MD IMG CT ORDERABLES Final R esult * (ABNORMAL) Hemoglobin A1c (05/27/2019 12:50 PM EDT) Hemoglobin A1C 6.60(H) 4.80 - 5.60 % 05/27/2019 2:12 PM EDT [facility] Blood Venipuncture / Unknown 05/27/2019 12:50 PM EDT 05/27/2019 1:14 PM EDT Narrative [facility] - 05/27/2019 2:12 PM EDT Hemoglobin A1C Ranges: Increased Risk for Diabetes 5.7% to 6.4% Diabetes >= 6.5% Diabetic Goal < 7.0% Grzegorz BENNETT LAB BLOOD ORDERABLES Final Result [facility]
[address] [place] [address], * (ABNORMAL) Lipid Panel (05/17/2019 8:22 AM EDT) Total Cholesterol 156 0 - 200 mg/dL 05/17/2019 9:10 AM EDT [facility] Triglycerides 65 0 - 150 mg/dL 05/17/2019 9:10 AM EDT [facility] HDL Cholesterol 69(H) 40 - 60 mg/dL 05/17/2019 9:10 AM EDT [facility] LDL Cholesterol 74 0 - 100 mg/dL 05/17/2019 9:10 AM EDT [facility] VLDL Cholesterol 13 mg/dL 05/17/20 19 9:10 AM EDT [facility] LDL/HDL Ratio 1.07 05/17/2019 9:10 AM EDT [facility] Blood Line / Unknown 05/17/2019 8: 22 AM EDT 05/17/2019 8:47 AM EDT Narrative [facility] - 05/17/2019 9:10 AM EDT Cholesterol Reference Ranges (U.S. Department of Health and Human Services ATP III Classifications) Desirable <200 mg/dL Borderline High 200-239 mg/dL High Risk >240 mg/dL Triglyceride Reference Ranges (U.S. Department of Health and Human Services ATP III Classifications) Normal <150 mg/dL Borderline High 150-199 mg/dL High 200-499 mg/dL Very High >500 mg/dL HDL Reference Ranges (U.S. Department of Health and Human Services ATP III Classifcations) Low <40 mg/dl (major risk factor for CHD) High >60 mg/dl ('negative' risk factor for CHD) LDL Reference Ranges (U.S. Department of Health and Human Services ATP III Classifcations) Optimal <100 mg/dL Near Optimal 100-129 mg/dL Borderline High 130-159 mg/dL High 160-189 mg/dL Very High >189 mg/dL Danii Washington PA-C LAB BLOOD ORDERABLES Final Result [facility]
[address] [place] [address], from Last 3 Months or Most Recently Relevant to Health Maintenance Insurance MEDICARE A & B [facility] [place] Advance Directives * CPR (Attempt to Resuscitate) (Latest Code Status on File) Date Activated Date Inactivated Comments 03/09/2024 2:48 AM 03/12/2024 4:19 PM Question Answer Comments Code Status (Patient has no pulse and is not breathing): CPR (Attempt to Resuscitate) Medical Interventions (Patie nt has pulse or is breathing): Full Support * CPR (Attempt to Resuscitate) Date Activated Date Inactivated Comments 05/28/2019 10:22 AM 06/05/2019 5:50 PM Question Answer Comments Code Status (Patient has no pulse and is not breathing): CPR (Attempt to Resuscitate) Medical Interventions (Patie nt has pulse or is breathing): Full * CPR (Attempt to Resuscitate) Date Activated Date Inactivated Comments 05/28/2019 10:22 AM 05/28/2019 10:22 AM Question Answer Comments Code Status (Patient has no pulse and is not breathing): CPR (Attempt to Resuscitate) Medical Interventions (Patie nt has pulse or is breathing): Full * CPR (Attempt to Resuscitate) Date Activated Date Inactivated Comments 05/17/2019 11:27 AM 05/17/2019 8:57 PM Question Answer Comments Code Status (Patient has no pulse and is not breathing): CPR (Attempt to Resuscitate) Medical Interventions (Patie nt has pulse or is breathing): Full Level Of Support Discussed With: Patient * CPR (Attempt to Resuscitate) Date Activated Date Inactivated Comments 10/24/2018 4:08 AM 10/27/2018 2:47 PM Question Answer Comments Code Status (Patient has no pulse and is not breathing): CPR (Attempt to Resuscitate) Medical Interventions (Patie nt has pulse or is breathing): Full Care Teams Health And Fitness Instructor Relationship Specialty Start Date End Date Javon Howard MD [address] [place] [address] PCP - General Family Medicine 02/12/25
--- OUTSIDE RECORDS SUMMARY | 2025-04-15 09:30 | XMS_ITS ---
Author Organization [facility] Address [address] [place] [address] Care Team Providers Care Spine Specialist Name Role Phone Javon Howard MD Primary Care Provider [phone] Active Problems Problem Noted Date Diagnosed Date [...] of urinary bladder 07/07/2021 Coronary arteriosclerosis in [place] artery 12/18 Iron deficiency anemia 12/19/2019 Vitamin B12 deficiency (non anemic) 12/19/2019 Mixed hyperlipidemia 12/19/2019 alf current use of anticoagulant 0 Benign prostatic hyperplasia without urinary obs truction 12/19/2019 Essential hypertension 12/19/2019 Hypothyroidism 12/19/2019 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 i. 05/17/2019 LHC: Severe single-vessel CAD characterized [...] (05/31/2019): PAD 02/04/2016 Lumbar disc disease Hyperlipidemia Current Treatment and Therapy Plans No current plan information found. Past Treatment and Therapy Plans No past plan information found. Lifetime Dose Tracking * Chemical Lifetime Dose Automatic Entry Manual Entr y Cumulative Air Kerma 2,520 mGy 0 mGy 2,520 m Gy Resolved Problems Problem Noted Date Diagnosed Date Resolved Date Acute on chronic respiratory failure with hypoxemia 10/24/2018 10/27/2018 Peripheral vascular disease 12/21/2015 02/04/2016
== END 2025-04-14 23:59 ==
LOC: LAB.DROPOF 04-15 09:24
PROVIDERS: PCP Family Medicine; Visit Provider Family Medicine
DX: E78.5 Hyperlipidemia, unspecified (principal); J44.9 Chronic obstructive pulmonary disease, unspecified; I12.9 Hypertensive chronic kidney disease with stage 1 through stage 4 chronic kidney disease, or unspecified chronic kidney disease; N18.9 Chronic kidney disease, unspecified; E11.9 Type 2 diabetes mellitus without complications; E03.9 Hypothyroidism, unspecified
CPT/HCPCS: 80053; 80061; 83036; 84439; 84443; 85025

== ENCOUNTER 2025-05-26 12:38 | Outpatient (CLI) | payer MEDICARE, OTHER, SELFPAY ==
--- OUTSIDE RECORDS SUMMARY | 2025-05-07 09:00 | XMS_ITS | Encounter Summary ---
Author Organization [facility] Address [address] [place] [address] Care Team Providers Care Scoop Driver Name Role Phone Javon Howard MD Primary Care Provider +1- [phone] Reason for Visit * Reason Comments Follow-up Coronary Artery Disease Encounter Details Date Type Department Care Team (Late st Contact Info) Description 05/07/2025 9:00 AM EDT Office Visit [facility] CARDIOLOGY [address] [place] [address] Nguyễn Rain MD [address] [facility] [address] [place] [address] Coronary artery disease involving standing rock coronary artery of standing rock heart without angina pectoris (Primary Dx) Social History Tobacco Use Types Packs/Day Years Used Date Smoking Tobacco: Former Cigarettes 2 25 0 02/03/1987 - 02/04/2012 Smokeless Tobacco: Never Tobacco Cessation:Counseling Given: Not Answered Alcohol Use Standard Drinks/Week Comments No 0 (1 standard drink = 0.6 oz pur e alcohol) [facility] Utilities Answer Date Recorded In the [...] heating? Not hard at all 03/10/2024 [facility] - Occupational Stress Questionnaire Answer Date Recorded [...] GED or equivalent No 03/10/2024 Preferred Language Stateless 03/10/2024 PHQ-2 Answer Date Recorded Retired PHQ-9: [...] Day. NOON AND MIDNIGHT, Disp: , Rfl: Vteolfp-Znoszfize-Hmvutwg D (CALCIUM 1200+D3 PO), Take 1 capsule [...] advance directive, declines further assistance. Dictated utilizing [employer]ovo[employer]on dictation documented in this encounter Plan of Treatment Upcoming Encounters Date Type Department Care Team (Late st Contact Info) Description 02/04/2026 1:15 PM EDT Office Visit [facility] GASTROENTEROLOGY [address] [facility] [address] [place] [address] Stephanie Merchant APRN [address] [facility] [address] [place] [address] 05/13/2026 9:15 AM EDT Office Visit [facility] CARDIOLOGY [address] [place] [address] Mariella Perales APRN [address] [facility] [address] [place] [address] documented as of this encounter Visit Diagnoses Diagnosis Coronary artery disease involving standing rock coronary artery of standing rock heart without angina pectoris- Primary documented in this encounter Care Teams Scoop Driver Relationship Specialty Start Date End Date Javon Howard MD [facility] [place] [id number] PCP - General Family Medicine 02/12/25 documented as of this encounter
[2025-05-26 21:03] LABS: Hematocrit 36.1 % (42.0-52.0); Hemoglobin 12.0 g/dL (14.1-18.0); Immature Granulocytes % 0.2 %; Mean Corpuscular HGB Conc 33.2 g/dL (31.8-35.4); Mean Corpuscular Hemoglobin 30.8 pg (27.0-31.2); Mean Corpuscular Volume 92.6 fl (80-94); Nucleated Red Blood Cells % 0 %; Platelet Count 513 K/mm3 (142-424); Red Blood Count 3.90 M/mm3 (4.60-6.20); Red Cell Distribution Width-SD 56.8 fL; White Blood Count 8.6 K/mm3 (4.8-10.8)
[2025-05-26 21:26] LABS: Anion Gap 13.1 mEq/L (5-15); Blood Urea Nitrogen 22 mg/dl (9-20); Calcium 9.4 mg/dl (8.4-10.2); Carbon Dioxide 27 mmol/L (22.0-30.0); Chloride 102 mmol/L (98-107); Creatinine,Serum 1.40 mg/dl (0.66-1.25); Estimated Glomerular Filt Rate 49 ml/min (>60); GFR (African American) 59 ML/MIN (>60); Glucose 122 mg/dl (74-100); Potassium 5.1 mmoL/L (3.5-5.1); Sodium 137 mmol/L (136-145)
[2025-05-26 21:54] LABS: Thyroid Stimulating Hormone 0.93 uIU/mL (0.465-4.68)
--- OUTSIDE RECORDS SUMMARY | 2025-05-28 12:48 | XMS_ITS ---
Author Organization [facility] Address [address] [place] [address] Care Team Providers Care Digital Ad Trafficker Name Role Phone Javon Howard MD Primary Care Provider +1- [phone] Active Problems Problem Noted Date Diagnosed Date [...] of urinary bladder 07/07/2021 Coronary arteriosclerosis in standing rock artery 12/18 Iron deficiency anemia 12/19/2019 Vitamin B12 deficiency (non anemic) 12/19/2019 Mixed hyperlipidemia 12/19/2019 director long term care current use of anticoagulant 0 Benign prostatic hyperplasia without urinary obs truction 12/19/2019 Essential hypertension 12/19/2019 Hypothyroidism 12/19/2019 [facility] (current) use of anticoagulants 2019 Type 2 diabetes mellitus without complication Overview (05/07/2025): UPDATING PER 2024 REGULATORY 2024 LOAD Severe chronic obstructive pulmonary disease 07/2020 Heart [...] 2,520 mGy 0 mGy 2,520 m Gy Fluoro Time 19.1 Minutes 0 Minutes 19.1 Minutes Resolved Problems Problem Noted Date Diagnosed Date Resolved Date Acute on chronic respiratory failure with hypoxemia 10/24/2018 10/27/2018 Peripheral vascular disease 12/21/2015 02/04/2016
--- OUTSIDE RECORDS SUMMARY | 2025-05-28 12:48 | XMS_ITS | Encounter Summary ---
Author Organization [facility] Address [address] [place] [address] Care Team Providers Care Wood Window And Door Craftsman Name Role Phone Javon Howard MD Primary Care Provider +1- [phone] Reason for Visit * Reason Comments Med Refill Encounter Details Date Type Department Care Team (Late st Contact Info) Description 04/18/2025 Refill [facility] GASTROENTEROLOGY [address] [facility] [address] [place] [id number] Stephanie Merchant, BROACH GRINDER [address] [facility] [address] [place] [address] Nausea Social History Tobacco Use Types Packs/Day Years Used Date Smoking Tobacco: Former Cigarettes 2 25 0 02/03/1987 - 02/04/2012 Smokeless Tobacco: Never Alcohol Use Standard Drinks/Week Comments No 0 (1 standard drink = 0.6 oz pur e alcohol) [facility] Utilities Answer Date Recorded In the past 12 months has [employer] electric, gas, oil, or water company threatened [...] and heating? Not hard at all 03/10/2024 [facility] [employer] [facility] Occupat ional Health - Occupational Stress [...] GED or equivalent No 03/10/2024 Preferred Language Citizen Of [place] 03/10/2024 PHQ-2 Answer Date Recorded Retired PHQ-9: [...] on file documented as of this encounter Plan of Treatment Upcoming Encounters Date Type Department Care Team (Late st Contact Info) Description 02/04/2026 1:15 PM EDT Office Visit [facility] GASTROENTEROLOGY [address] [facility] [address] [place] [address] Stephanie Merchant, BROACH GRINDER [address] [facility] [address] [place] [address] 05/13/2026 9:15 AM EDT Office Visit [facility] CARDIOLOGY [address] [place] [address] Mariella Perales, RUDDY [address] [facility] [address] [place] [address] documented as of this encounter Visit Diagnoses Diagnosis Nausea Nausea alone documented in this encounter Care Teams Wood Window And Door Craftsman Relationship Specialty Start Date End Date Javon Howard MD [address] [place] [address] PCP - General Family Medicine 02/12/25 documented as of this encounter
--- OUTSIDE RECORDS SUMMARY | 2025-05-28 12:48 | XMS_ITS | Encounter Summary ---
Author Organization [facility] Address [address] [place] [address] Care Team Providers Care Director Of Orthopedics Name Role Phone Javon Howard MD Primary Care Provider +1- [phone] Encounter Details Date Type Department Care Team (Late st Contact Info) Description 05/13/2025 Results Follow-Up [facility] CARDIOLOGY [address] [facility] [address] [place] [address] Mariella Perales APRN [address] [facility] [address] [place] [address] Social History Tobacco Use Types Packs/Day Years Used Date Smoking Tobacco: Former Cigarettes 2 25 0 02/03/1987 - 02/04/2012 Smokeless Tobacco: Never Alcohol Use Standard Drinks/Week Comments No 0 (1 standard drink = 0.6 oz pur e alcohol) [facility] Utilities Answer Date Recorded In the past 12 months has [employer] electric, gas, oil, or water company threatened [...] and heating? Not hard at all 03/10/2024 [facility] [place] of Occupat ional Health - Occupational Stress [...] GED or equivalent No 03/10/2024 Preferred Language Cambodian 03/10/2024 PHQ-2 Answer Date Recorded Retired PHQ-9: [...] on file documented as of this encounter Miscellaneous Notes * Telephone Encounter - Corinne Lovelace RN - 05/13/2025 1:55 PM EDT Left VM advising of lab results and recommendations. documented in this encounter Plan of Treatment Upcoming Encounters Date Type Department Care Team (Late st Contact Info) Description 02/04/2026 1:15 PM EDT Office Visit [facility] GASTROENTEROLOGY [address] [facility] [address] [place] [id number] Stephanie Merchant, EXPERIMENTAL AIRCRAFT MECHANIC [address] [facility] [address] [place] [address] 05/13/2026 9:15 AM EDT Office Visit [facility] CARDIOLOG[facility] [address] [place] [address] Mariella Perales, RUDDY [address] [facility] [address] [place] [address] documented as of this encounter Visit Diagnoses Not on filedocumented in this encounter Care Teams Director Of Orthopedics Relationship Specialty Start Date End Date Javon Howard MD [address] [place] [address] PCP - General Family Medicine 02/12/25 documented as of this encounter
--- OUTSIDE RECORDS SUMMARY | 2025-05-28 12:48 | XMS_ITS | Clinical Summary ---
Author Organization [facility] Address [address] [place] [address] Care Team Providers Care Soap Press Feeder Name Role Phone Javon Howard MD Primary Care Provider +1- [phone] Allergies No known active allergies Medications Ferrous [...] Every Night. 90 tablet 3 2 Active amLODIPine (NORVASC) 10 MG tablet TAKE 1 TABLET BY MOUTH DAILY 90 tablet 3 5 Active losartan (COZAAR) 100 MG tabletIndication s:Essential hypertension TAKE 1 TABLET BY MOUTH DAILY 90 tablet 3 5 Active hydrOXYzine (ATARAX) 25 MG tablet Take 1 tablet by mouth. 5 Active famotidine (PEPCID) 20 MG tabletIndication s:Nausea TAKE 1 TABLET BY MOUTH 2 TIMES A DAY NEEDED FOR HEARTBURN (NAUSEA) 180 tablet 3 5 Active Additional Information Patient not taking.Reported on 05/07/2025 Active Problems Problem Noted Date Diagnosed Date [...] of urinary bladder 07/07/2021 Coronary arteriosclerosis in alturas artery 12/18 Iron deficiency anemia 12/19/2019 Vitamin B12 deficiency (non anemic) 12/19/2019 Mixed hyperlipidemia 12/19/2019 correction current use of anticoagulant 0 Benign prostatic hyperplasia without urinary obs truction 12/19/2019 Essential hypertension 12/19/2019 Hypothyroidism 12/19/2019 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 (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) use of anticoagulants 2019 Type 2 [...] Encounters Date Type Department Care Team Description 05/13/2025 Results Follow-Up [facility] CARDIOLOGY [address] [facility] [address] [place] [address] Mariella Perales APRN 05/07/2025 9:00 AM EDT Office Visit [facility] CARDIOLOGY [address] [place] [address] Nguyễn Rain MD Coronary artery disease involving alturas coronary artery of alturas heart without angina pectoris (Primary Dx) 05/07/2025 Travel 04/18/2025 Refill [facility] GASTROENTEROLOGY [address] [facility] [address] [place] [address] Stephanie Merchant, OBSTETRICS SCRUB NURSE Nausea from Last 3 Months Immunizations Immunization Administration [...] drink = 0.6 oz pur e alcohol) [facility] Browsyities Answer Date Recorded In the past 12 months has [employer] gas, oil, or water [employer] threatened to shut off services in your [...] and heating? Not hard at all 03/10/2024 [facility] [place] of Occupat ional Health - Occupational Stress [...] GED or equivalent No 03/10/2024 Preferred Language Andorran 03/10/2024 PHQ-2 Answer Date Recorded Retired PHQ-9: [...] Pulse 62 05/07/2025 8:48 AM EDT Temperature 36.6 C (97.9 F) 03/12/2024 10:57 AM EDT Respiratory Rate 18 03/12/2024 10:5 7 AM EDT Oxygen Saturation 90% 05/07/2025 8:48 AM EDT Inhaled Oxygen Concentration - - Weight 61.1 kg (134 lb 12.8 oz) 05/07/2025 8:48 AM EDT Height 167.6 cm (5' 6 ) 05/07/2025 8:48 AM EDT Body Mass Index 21.76 05/07/2025 8:48 AM EDT Plan of Treatment Upcoming Encounters Date Type Department Care Team (Late st Contact Info) Description 02/04/2026 1:15 PM EDT Office Visit [facility] GASTROENTEROLOGY [address] [facility] [address] [place] [address] Stephanie Merchant, OBSTETRICS SCRUB NURSE [address] [facility] [address] [place] [address] 05/13/2026 9:15 AM EDT Office Visit [facility] CARDIOLOGY [address] [place] [address] Mariella Perales, RUDDY [address] [facility] [address] [place] [address] Health Maintenance Due Date Last Done Comments [...] (1 - 1- dose 75+ series) 2022 INFLUENZA VACCINE 03/07/2025 06/12/2024, , 06/02/2021, Additional history exists FECAL OCCULT BLOOD TEST 03/08/2025 03/08/2024, 06/05 COVID-19 Vaccine (2024-2 6 season) 2025 07/09/2021, 10/10/2020, 09/19/2020 COLONOSCOPY 03/10/2029 03/10/2024, 03/10/2024 COLORECTAL CANCER SCREENING 03/10/2029 Medical Devices Implanted Type Area Music Mixer Device Identifier Shelf Expiration Date Model / Serial / Lot Dawson Mcgarry Radiomark Disk Ro Carmen - [id number] Implanted:Qty : 1 on 05/28/2019 by Nguyễn Calderon MD at [facility] Implant [employer] [id number] / / Dev Clip Endo [id number] Contrl Rot 235cm - [id number] Implanted:Qty : 1 on 03/10/2024 by Quinn Paz MD at [facility] Implant N/A: Sigmoid Colon [employer] 11/06/2026 [id number] / / [id number] Dev Clip Hemo Resolution 235cm 2.8mm - [id number] Implanted:Qty : 4 on 03/11/2024 by Quinn Paz MD at [facility] Implant N/A: Sigmoid Colon [employer] 11/06/2026 [id number] / / [id number] Description:Sigmoid polyp si te Stent Xience 5 Rx 3x18mm - [id number] Implanted:Qty : 1 on 03/02/2016 by Sabra Martel MD at [facility] GAL[employer] VASCULAR 11/02/2018 [id number] / / [id number] Procedures Procedure Name Priority Date/Time Associated Diagnosis Comments SCANNED - LABS 04/09/2025 COLONOSCOPY 03/10/2024 8:48 AM EDT POCT OCCULT BLOOD STOOL STAT 03/08/2024 11:[address] ANGIOGRAM CHEST STAT 06/09/2019 2: 00 PM EST HEMOGLOBIN A1C Routine 05/27/2019 12:50 PM EDT CAD in alturas artery LIPID PANEL STAT 05/17/2019 8:22 AM EDT from Last 3 Months or Most Recently Relevant to Health Maintenance Results * LABS SCANNED (04/09/2025) Nguyễn Rain MD LAB BLOOD ORDERABLES Final Res ult * Colonoscopy (03/10/2024 8:48 AM EDT) Quinn [...] are multiple bilateral renal cysts. Procedure Note Gregor Voss MD - 06/10/2019 EXAMINATION: CT ANGIOGRAM CHEST- [...] - 5.60 % 05/27/2019 2:12 PM EDT [facility] Blood Venipuncture / Unknown 05/27/2019 12:50 PM EDT 05/27/2019 1:14 PM EDT Narrative [facility] - 05/27/2019 2:12 PM EDT Hemoglobin A1C Ranges: Increased Risk for Diabetes 5.7% to 6.4% Diabetes >= 6.5% Diabetic Goal < 7.0% Grzegorz BENNETT LAB BLOOD ORDERABLES Final Result [facility]
[address] [place] [address], * (ABNORMAL) Lipid Panel (05/17/2019 8:22 AM EDT) Total Cholesterol 156 0 - 200 mg/dL 05/17/2019 9:10 AM EDT [facility] Triglycerides 65 0 - 150 mg/dL 05/17/2019 9:10 AM EDT [facility] HDL Cholesterol 69(H) 40 - 60 mg/dL 05/17/2019 9:10 AM EDT [facility] LDL Cholesterol 74 0 - 100 mg/dL 05/17/2019 9:10 AM EDT [facility] VLDL Cholesterol 13 mg/dL 05/17/20 19 9:10 AM EDT [facility] LDL/HDL Ratio 1.07 05/17/2019 9:10 AM T [facility] Blood Line / Unknown 05/17/2019 8: 22 AM EDT 05/17/2019 8:47 AM EDT Narrative [facility] - 05/17/2019 9:10 AM EDT Cholesterol [...] [place] PA-C LAB BLOOD ORDERABLES Final Result [facility]
[address] [place] [address], from Last 3 Months or Most Recently Relevant to Health Maintenance Insurance MEDICARE A & B [employer] [place] Advance Directives * CPR (Attempt [...] pulse or is breathing): Full Care Teams Soap Press Feeder Relationship Specialty Start Date End Date Javon Howard MD [facility] [place] [address] PCP - General Family Medicine 02/12/25
--- OUTSIDE RECORDS SUMMARY | 2025-05-28 12:48 | XMS_ITS | Encounter Summary ---
Author Organization [facility] Address [address] [place] [address] Care Team Providers Care Home Staging Specialist Name Role Phone Javon Howard MD Primary Care Provider +1- [phone] Encounter Details Date Type Department Care Team (Latest Contact Info) Description 05/07/2025 Travel Social History Tobacco Use Types Packs/Day Years Used Date Smoking Tobacco: Former Cigarettes 2 25 0 02/03/1987 - 02/04/2012 Smokeless Tobacco: Never Alcohol Use Standard Drinks/Week Comments No 0 (1 standard drink = 0.6 oz pur e alcohol) [facility] Utilities Answer Date Recorded In the past 12 months has e electric, gas, oil, or water company [...] and heating? Not hard at all 03/10/[address] [facility] [place] of Occupat ional Health - Occupational Stress [...] GED or equivalent No 03/10/2024 Preferred Language Ivorian 03/10/2024 PHQ-2 Answer Date Recorded Retired PHQ-9: [...] Visit [facility] GASTROENTEROLOGY [address] [facility] [address] [place] [id number] Stephanie Merchant, BLOOD BANK CUSTODIAN [address] [facility] [address] [place] [address] 05/13/2026 9:15 AM EDT Office Visit [facility] CARDIOLOGY [address] [place] [address] Mariella Perales APRN [address] [facility] [address] [place], [place] [id number] documented as of this encounter Visit Diagnoses Not on filedocumented in this encounter Care Teams Home Staging Specialist Relationship Specialty Start Date End Date Javon Howard MD [facility]0 [place] [id number] PCP - General Family Medicine 02/12/25 documented as of this encounter
== END 2025-05-26 23:59 ==
LOC: LAB.DROPOF 05-28 12:39
PROVIDERS: PCP Family Medicine; Visit Provider Family Medicine
DX: E03.9 Hypothyroidism, unspecified (principal); I10 Essential (primary) hypertension; D64.9 Anemia, unspecified
CPT/HCPCS: 80048; 84443; 85025

== ENCOUNTER 2025-06-17 09:20 | Outpatient (CLI) | payer MEDICARE, OTHER, SELFPAY ==
--- OUTSIDE RECORDS SUMMARY | 2016-08-19 04:05 | XMS_ITS | Continuity of Care Document ---
Author Organization [facility] Address [address] [place] [id number] Phone Care Team Providers Care Door Tender Name Role Phone Jacinda Ryder OD Unavailable Unavailable Allergies, Adverse Reactions, Alerts Substance Reaction Status Criticality No Known Allergies Active No Inform ation Medications Medication Instructions Dosage Effective Dates (start - stop) Status Comments Ocuflox 0.3 % eye drops Use QID as directed. - Active 47 [id number] sx dates: 08/11/16 and 08/18/16 prednisolone acetate 1 % eye drops,suspension instill 1 drop by ophthalmic route 4 times every day into operative eye starting after surgery - Active 47 [id number] sx dates: 08/11/16 and 08/18/16 Prolensa 0.07 % eye drops Use QD as directed. May sub Ilevro 0.3%, 3ml. Use QD as directed. - Active [id number] sx dates: 08/11/16 and 08/18/16 Vascepa 1 gram capsule take 2 capsule by oral route 2 times every day with food swallowing whole. Do not chew, open, dissolve and/or crush. 2 G - Active Victoza 2-Porfirio 0.6 mg/0.1 mL (18 mg/3 mL) subcutaneous pen injector inject 1.2 milliliter by subcutaneous route every day 7.2 MG - Active Crestor 20 mg tablet take 1 tablet by oral route every bedtime 20 MG - Active fenofibric acid (choline) 135 mg capsule,delayed release take 1 capsule by oral route every day 135 MG - Active glimepiride 4 mg tablet take 1 tablet by oral route every day 4 MG - Active hydralazine 25 mg tablet take 1 tablet by oral route every day with food 25 MG - Active Januvia 100 mg tablet take 1 tablet by oral route every day 100 MG - Active metoclopramide 5 mg tablet take 1 tablet by oral route 2 times every day 30 minutes before meals and at bedtime 5 MG - Active metoprolol tartrate 100 mg tablet take 0.5 Tablet by oral route 2 times every day with meals 50 MG - Active nisoldipine ER 20 mg tablet,extended release 24 hr take 1 tablet by oral route every day 20 MG - Active omeprazole 40 mg capsule,delayed release take 1 capsule by oral route every day before a meal 40 MG - Active ondansetron HCl 4 mg tablet take 2 tablet by oral route every 8 hours for 2 days 8 MG - Active tramadol 50 mg tablet take 1 tablet by oral route every 6 hours as needed 50 MG - Active Procedures Procedure Date POSTOP FOLLOW-UP VISIT POSTOP FOLLOW-UP VISIT CATARACT SURG W/IOL, 1 STAGE OPHTHALMIC BIOMETRY POSTOP FOLLOW-UP VISIT CATARACT SURG W/IOL, 1 STAGE OFFICE/OUTPATIENT VISIT, EST Doc meds verified w/pt or re TOBACCO NON-USER PNEUMOC VAC NOT RECEIVED, PT DECLINED, N O REASON Flu immunize Not Administered Reason Not Given EYE EXAM, Comprehensive, Established Jun Doc meds verified w/pt or re TOBACCO NON-USER OPHTHALMIC BIOMETRY EYE EXAM, Comprehensive, New Doc meds verified w/pt or re TOBACCO NON-USER Advance Directives Directive Yes / No Effective Date File Name No Information Encounters Encounter Description Practice Location Reason(s) For Visit Diagnoses Date Provider Providers Copied on Encounter Ian Sanchez [facility], [address] [place] [address], Formerly [facility] [place], [id number], [place] tel:[phone] [facility] post op (chief complaint) P/Std IOL-No Laser 7 Aleksey Monaco. [address] [place] [address], [address] [place] [address] , . tel:[phone] Referring Provider: Ioana Manjarrez, [address] [place], , [address]. tel:[phone] [facility], [address] [place] [address], [address] [place] [address], tel:[phone] [place] 2nd eye OS (chief complaint) Combined forms of age-related cataract, left eye 7 Mathieu Alcantara. [address] [place] [address], [address] [place] [address] , . tel:[phone] Referring Provider: Ioana Manjarrez, [address] [place] [address], , [facility]. tel:[phone] [facility], [address] [place] [address], [address] [place] [address], tel:[phone] [facility] No Information Jad Lopez. [address] [place] [address], [address] [place] [address] , . tel:[phone] Referring Provider: Ioana Manjarrez, [address] [place] [address], , [facility]. tel:[phone] [facility], [address] [place] [address], [id number], tel:[phone] LION Guillen [facility] No Information 7 Jad Lopez. [address] [place] [address], [address] [place] [address] , . tel:[phone] Referring Provider: John Blanca, [address] [place] [address], [id number]. tel:[phone] [facility], [address] [place] [address], [id number], tel:[phone] LION HODGSON 1 day STD w/o Laser OD (chief complaint) P/Std IOL-No Laser 7 Ryder Jacinda. [address] [place] [address], [address] [place] [address] , . tel:[phone] Referring Provider: [address] [place] [address], , [facility]. tel:[phone] [facility], [address] [place] [address], [id number], tel:[phone] [facility] No Information 7 Piracha John. [address] [place] [address], [address] [place] [address] , . tel:[phone] Referring Provider: [address] [place] [address], , [facility]. tel:[phone] OFFICE/OUTPA TIENT VISIT, EST [facility], [address] [place] [address], [id number], tel:[phone] LION HODGSON Over refract (chief complaint) Combined Cataract- BilateralPost RK 6 Ryder Jacinda. [address] [place] [address], [id number] , . tel:[phone] Referring Provider: [address] [place] [address], , [facility]. tel:[phone] Ian [facility], [address] [place] [address], [id number], tel:[phone] LION HODGSON Cat Eval OU (chief complaint) Post RKCombined Cataract- Bilateral Nov 6 Piracha John. [address] [place] [address], [address] [place] [address] , . tel:[phone] Referring Provider: [address] [address], , [address]. tel:[phone] Ian [facility], [address] [place] [address], [id number], tel:[phone] [facility] No Information 0201 6 Jad Lopez. [address] [place] [address], [id number] , . tel:[phone] Referring Provider: John Blanca, [address] [place] [address], [id number]. tel:[phone] Ian [facility], [address] [place] [address], [id number], tel:[phone] [facility] decreased vision (chief complaint) floaters (chief complaint) diabetic type 2 (chief complaint) Age-related nuclear cataract, bilateralPunctat e keratitis, left eyePost RK 0201 6 Jad Lopez. [address] [place] [address], [id number] , . tel:[phone] Referring Provider: Ioana Manjarrez, [address] [address], , [address]. tel:[phone] Family History Family Member Type Diagnosis Age At Onset Father Problem (finding) Cardiovascular disease Immunizations Vaccine Date Status Comments Flu (split) (3 yrs or older) administered Source: Other Provider Flu (split) (3 yrs or older) administered Source: Source Unspecified Payers Payer name Insurance type Covered alliance party ID Authoriza tion(s) Medicare [place] [id number] [place] Blue And [facility] BL [id number] Social History Type Description Quantity Date Captured Comments Alcohol Use Details Unknown Caffeine Use Details Unknown Tobacco Use Status No Information Smoking Status No Information Sex Male Chief Complaint And Reason For Visit From encounter dated '08/19/2016 09:05'. post op (chief complaint). Description: Pt here for one day cataract post op in the left eye (2nd eye, no laser, prev refractive).). Pt states vision is a little blurry this morning. He feels tenderness if looking to the side. pred joseluis 2 times a day right eye and 4 times a day left eyeprolensa oncea day both eyesocuflox 4 times a day left eyetech KP Reason For Referral Reason For Referral No Information Plan Of Treatment Date Type Action Status Referral Ordered: Ioana Peterson MD -Ophthalmology (related to P/Std IOL-No Laser) ordered Referral Referred To: Ioana Peterson MD [address] [place] [address] , [phone] Ordered: Referrals: Ophthalmology. Ioana Peterson MD ordered Patient Education Cataract Surgery: Befor e Your Surgery completed Patient Education Cataract Surgery: Befor e Your Surgery completed History Of Present Illness Encounter Date Complaint History Of Prese nt Illness post op Pt here for one day cataract post op in the left eye (2nd eye, no laser, prev refractive).). Pt states vision is a little blurry this morning. He feels tenderness if looking to the side. pred joseluis 2 times a day right eye and 4 times a day left eyeprolensa once a day both eyesocuflox 4 times a day left eyetech KP 2nd eye OS 1 week s/p CEIOL OD, standard lens no laser. Patient states that VA OD is doing well. Notes that there was a pressure rise the day after surgery. Patient here today for 2nd eye OS. Patient states that VA OS has a hard time seeing at night when driving due to headlight glare, stops driving before dark. 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 H/o RK OU >40 years ago. Pt has difficulty driving at night due to glare. O.D. suggested no driving at night until after sx. tech abs Cat Eval OU The 70 year old male presents for evaluation of Cat Eval OU. Pt states that his inner tube inserter suggested that she shouldn't drive at night due to glare - says his does most of the driving due to glare making it hard to see road signs until being right up on them - says he needs to move his glasses around to get them in the right position to read small print - says that he sees better later in the day as his eyes have had time to adjust./le decreased vision The 70 year old male presents for evaluation of decreased vision in the right eye and left eye. It started about 6 month(s) ago. It affects distance vision. The symptom is constant. The condition is mild. 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 The condition is stable. Functional Status Date Functional Assessmen t No Information Instructions Date Instruction Additional Infor matalexander 1 month for p/Std IO L no laser OU/refract Related to P/Std IOL-No Laser Impression/Plan - Do ing well, healing nicely, follow drop schedule-hp1 drop of combigan given in office to stabilize pressure OS. Related to P/Std IOL-No Laser Follow up - 1 week w maria r Peterson for p/Std IOL no laser OU Related to P/Std IOL-No Laser Impression/Plan - Pedro conti is ready to proceed and has no other questions. Recommend IOL. Call with any questions and concerns. CMH25.812 cataract 35877 Cos/iol Std lens no laser prev refractive, 2nd eye see sw, pop 08/19/16 @ 9:05 gen aparicio vw 89/1 pa,pro,o Related to Combined forms of age-related cataract, left eye sx Related to P/Std IOL-No Laser Impression/Plan - Do ing well, healing nicely, follow drop schedule-HPPressure is a little high. One drop of Combigan given in office. Related to P/Std IOL-No Laser Follow up - sx Related to P/Std IOL-No Laser SX Related to Combi josé antonio Cataract- Bilateral Impression/Plan Related to Post RK Impression/Plan - ov er refraction completed in office. -HP Related to Combined Cataract- Bilateral Follow up - SX Related to Combi josé antonio Cataract- Bilateral Plan Cat sx OD then OS Related t o Combined Cataract- Bilateral Impression/Plan - Ca taracts explained. Surgery will improve vision. Do not recommend Standard IOL and Laser technique due to the previous RK (measurements not predictable). Standard IOL without Laser technique, you'll need bifocals to correct vision @ near and distance. If glasses after surgery correct you to 20/20, we can do LVC after the surgery, but this is not recommended if you are not correctable to 20/20 with the glasses. Insurance coverage discussed, surgery is one eye at a time, post op drops explained, Julien gibbonst Related to Combined Cataract- Bilateral Follow up - Plan Cat sx OD then OS Related to Combined Cataract- Bilateral Impression/Plan Related to Post RK 1 year cataract check Related to Age-related nuclear cataract, bilateral Impression/Plan - Du e to the previous RK there is alot of corneal astigmatism, we can fix with a seperate procedure after the cataract surgery is done, but will discuss that when pt ready for surgery. Related to Post RK Impression/Plan Related to Punct ate keratitis, left eye Impression/Plan - Mi ld Cataracts in both eyes,vision problems are a combination of the cataract and the corneal astigmatism so just the cataract is not going to fix the problem, do not recommend surgery at this point, Pt is not symptomatic enough to proceed with yet.Pt is ok to drive during the day but would avoid night driving. All questions answered. Related to Age-related nuclear cataract, bilateral Follow up - 1 year cataract chec k Related to Age-related nuclear cataract, bilateral Assessments Type Assessment Date assessment P/Std IOL-No Laser impression P/Std IOL-No Laser: Z09 OS Patient Care Teams Name Effective Dates (start - stop) Status Members No Information
--- OUTSIDE RECORDS SUMMARY | 2025-05-07 08:00 | XMS_ITS | Encounter Summary ---
Author Organization [facility] Address [address] [place] [address] Care Team Providers Care Airborne Weapons Technical Manager Name Role Phone Javon Howard MD Primary Care Provider +1- [phone] Reason for Visit * Reason Comments Follow-up Coronary Artery Disease Encounter Details Date Type Department Care Team (Late st Contact Info) Description 05/07/2025 9:00 AM EDT Office Visit [facility] CARDIOLOGY [address] [place] [address] Nguyễn Rain MD [address] [facility] [address] [place] [address] Coronary artery disease involving standing rock coronary artery of standing rock heart without angina pectoris (Primary Dx) Social History Tobacco Use Types Packs/Day Years Used Date Smoking Tobacco: Former Cigarettes 2 25 0 02/03/1987 - 02/04/2012 Smokeless Tobacco: Never Tobacco Cessation:Counseling Given: Not Answered Alcohol Use Standard Drinks/Week Comments No 0 (1 standard drink = 0.6 oz pur e alcohol) [facility] Utilities Answer Date Recorded In the past 12 months has th e electric, gas, oil, or water company threatened to shut off services in your [...] and heating? Not hard at all 03/10/2024 [facility] - Occupational Stress Questionnaire Answer Date Recorded [...] GED or equivalent No 03/10/2024 Preferred Language Eritrean 03/10/2024 PHQ-2 Answer Date Recorded Retired PHQ-9: Brief Depression Severity Measure Score 0 03/10/2024 Sex and Gender Information Value Date Recorded Sex Assigned at Not on file Legal Sex Male 12:54 PM EDT Gender Identity Not on file Sexual Orientation Not on file Occupation Industry Job Start Date Job End Date Retired Not on file Not on file Not on file documented as of this encounter Last Filed Vital Signs Vital Sign Reading Time Taken Comments Blood Pressure 131/66 05/07/2025 8:48 AM EDT Pulse 62 05/07/2025 8:48 AM EDT Temperature - - Respiratory Rate - - Oxygen Saturation 90% 05/07/2025 8:48 AM EDT Inhaled Oxygen Concentration - - Weight 61.1 kg (134 lb 12.8 oz) 05/07/2025 8:48 AM EDT Height 167.6 cm (5' 6 ) 05/07/2025 8:48 AM EDT Body Mass Index 21.76 05/07/2025 8:48 AM EDT documented in this encounter Progress Notes * Jesu Tadeo - 05/07/2025 9:00 AM EDT a * Nguyễn Rain MD - 05/07/2025 9:00 AM EDT Subjective: Encounter Date:05/07/2025 Primary Care Physician: Javon Howard MD Patient ID: Ritchie Alexandra is a 79 y.o. male. Chief Complaint:Follow-up and Coronary Artery Disease Problem list: Coronary artery disease Detected by coronary artery calcifications. Abnormal MPS, May 2015:Inferior wall ischemia. Normal left ventricular systolic function by catheterization, 05/29/2015. ACS INNA to Mid-CX, Normal LV function. Two-vessel involvement by catheterization, 05/29/2015 Extreme calcification. PTCA and INNA of proximal circumflex and PTCA distal circumflex Cardiac catheterization, 03/02/2016: EF 60%. 90% restenotic lesion of the mid circumflex stented with 3.0 x 18 mm drug-eluting stent and reduced to no significant residual disease. Patent stent of theproximal circumflex. Moderate diffuse disease of the RCA. 05/14/2019 MPS: HIGH RISK STUDY with ischemia, hypotension, MAMIE. 05/17/2019 LHC: Severe single-vessel CAD characterized by areas of both diffuse and focal stenoses spanning the proximal to distal severely calcified dominant RCA, EF 70%; No percutaneous revascularization options. 05/28/[address] Calderon SVG to PDA, SVG to posterior lateral RCA Post-op Afib with RVR Short term Eliquis and Amiodarone, discontinued without recurrence PAD Right femoral endarterectomy Hypertension Dyslipidemia Diabetes COPD History of CVA Hypothyroidism History of GI bleed BPH Arthritis GERD Surgeries: Bladder tumor resection Tonsillectomy Right femoral endarterectomy CABG Appendectomy No Known Allergies Current Outpatient Medications: albuterol (PROVENTIL) (2.5 MG/3ML) 0.083% nebulizer solution, Take 2.5 mg by nebulization Every 4 (Four) Hours As Needed for Wheezing., Disp: , Rfl: amLODIPine (NORVASC) 10 MG tablet, TAKE 1 TABLET BY MOUTH DAILY, Disp: 90 tablet, Rfl: 3 aspirin 81 MG tablet, Take 1 tablet by mouth Daily., Disp: , Rfl: atorvastatin (LIPITOR) 40 MG tablet, Take 1 tablet by mouth Every Night., Disp: 90 tablet, Rfl: 3 budesonide (PULMICORT) 0.5 MG/2ML nebulizer solution, Take 2 mL by nebulization 2 (Two) Times a Day. NOON AND MIDNIGHT, Disp: , Rfl: Siecisg-Ggfalhadq-Dlwrkkm D (CALCIUM 1200+D3 PO), Take 1 capsule by mouth 2 (Two) Times a Day. D3 1000IU; NOON AND 8PM, Disp: , Rfl: Ferrous Sulfate (IRON) 325 (65 FE) MG tablet, Take 1 tablet by mouth Daily. NOON, Disp: , Rfl: guaiFENesin (MUCINEX) 600 MG 12 hr tablet, Take 2 tablets by mouth 2 (Two) Times a Day As Needed for Cough., Disp: , Rfl: hydrOXYzine (ATARAX) 25 MG tablet, Take 1 tablet by mouth., Disp: , Rfl: levothyroxine sodium (TIROSINT) 100 MCG capsule, Take 1 capsule by mouth Daily. (Patient taking differently: Take 112 mcg by mouth Daily.), Disp: , Rfl: losartan (COZAAR) 100 MG tablet, TAKE 1 TABLET BY MOUTH DAILY, Disp: 90 tablet, Rfl: 3 metFORMIN XR (GLUCOPHAGE-XR) 500 MG 24 hr tablet, Take 2 tablets by mouth 2 (Two) Times a Day., Disp: , Rfl: metoprolol succinate XL (TOPROL-XL) 100 MG 24 hr tablet, Take 1 tablet by mouth Daily., Disp: , Rfl: nitroglycerin (NITROSTAT) 0.4 MG SL tablet, Place 1 tablet under the tongue Every 5 (Five) Minutes As Needed for Chest Pain. Take no more than 3 doses in 15 minutes., Disp: , Rfl: O2 (OXYGEN), Inhale 2 L/min Every Night., Disp: , Rfl: tamsulosin (FLOMAX) 0.4 MG capsule 24 hr capsule, Take 2 capsules by mouth Every Night., Disp: , Rfl: umeclidinium-vilanterol (ANORO ELLIPTA) 62.5-25 MCG/INH aerosol powder inhaler, Inhale 1 puff Daily., Disp: , Rfl: vitamin B-12 (CYANOCOBALAMIN) 500 MCG tablet, Take 1 tablet by mouth Daily. NOON, Disp: , Rfl: vitamin C (ASCORBIC ACID) 500 MG tablet, Take 1 tablet by mouth Daily., Disp: , Rfl: famotidine (PEPCID) 20 MG tablet, TAKE 1 TABLET BY MOUTH 2 TIMES A DAY NEEDED FOR HEARTBURN (NAUSEA) (Patient not taking: Reported on 05/07/2025), Disp: 180 tablet, Rfl: 3 History of Present Illness Patient returns for annual follow-up of coronary disease. He is now 6 years post CABG. Is active, slowing down which he attributes to age. No exertional chest pain. Does have chest pain with moving his upper extremities rolling over, but ARB extreme, which he feels is unchanged since his surgery. No difficulties with walking. No shortness of breath. The following portions of the patient's history were reviewed and updated as appropriate: allergies, current medications, past family history, past medical history, past social history, past surgicalhistory and problem list. Social History Tobacco Use Smoking status: Former Current packs/day: 0.00 Average packs/day: 2.0 packs/day for 25.0 years (50.0 ttl pk-yrs) Types: Cigarettes Start date: 02/03/1987 Quit date: 02/04/2012 Years since quittin.2 Smokeless tobacco: Never Vaping Use Vaping status: Never Used Substance Use Topics Alcohol use: No Drug use: Never ROS Objective: BP 131/66 Pulse 62 Ht 167.6 cm (66 ) Wt 61.1 kg (134 lb 12.8 oz) SpO2 90% BMI 21.76 kg/m?? Vitals reviewed. Constitutional: Appearance: Well-developed and not in distress. Neck: Thyroid: No thyromegaly. Vascular: No carotid bruit or JVD. Pulmonary: Breath sounds: Normal breath sounds. Chest: Chest wall: Tender to palpatation. Comments: Sternal nonunion noted Cardiovascular: Regular rhythm. No gallop. No S3 and S4 gallop. Pulses: Intact distal pulses. Carotid: 2+ bilaterally. Radial: 2+ bilaterally. Edema: Peripheral edema absent. Abdominal: General: Bowel sounds are normal. Palpations: Abdomen is soft. There is no abdominal mass. Tenderness: There is no abdominal tenderness. Musculoskeletal: General: No deformity. Extremities: No clubbing present.Skin: General: Skin is warm and dry. Findings: No rash. Neurological: Mental Status: Alert and oriented to person, place, and time. Procedures Assessment: Assessment & Plan Diagnoses and all orders for this visit: 1. Coronary artery disease involving standing rock coronary artery of standing rock heart without angina pectoris(Primary) 1. Coronary artery disease. 6 years post CABG. Normal MPS last year. Stable without angina 2. PAD. Status post right femoral endarterectomy. No current claudication. 3. Hypertension well-controlled on amlodipine and losartan and metoprolol 4. Dyslipidemia on high intensity statin last LDL cholesterol 57. 5. COPD 6. Type 2 diabetes 7. 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 Recommendations: 1. Patient overall stable from a cardiovascular standpoint. 2. Will make no changes to current medical therapy 3. Revisit annually or as needed symptoms change Nguyễn Rain MD Advance Care Planning ACP discussion was held with the patient during this visit. Patient does not have an advance directive, declines further assistance. Dictated utilizing [employer] dictation documented in this encounter Plan of Treatment Upcoming Encounters Date Type Department Care Team (Late st Contact Info) Description 02/04/2026 1:15 PM EDT Office Visit [facility] GASTROENTEROLOGY [address] [facility] [address] [place] [address] Stephanie Merchant APRN [address] [facility] [address] [place] [address] 05/13/2026 9:15 AM EDT Office Visit [facility] CARDIOLOGY [address] [place] [address] Mariella Perales APRN [address] [facility] [address] [place] [address] documented as of this encounter Visit Diagnoses Diagnosis Coronary artery disease involving standing rock coronary artery of standing rock heart without angina pectoris- Primary documented in this encounter Care Teams Airborne Weapons Technical Manager Relationship Specialty Start Date End Date Javon Howard MD [facility] [place] [id number] PCP - General Family Medicine 02/12/25 documented as of this encounter
[2025-06-17 15:54] LABS: Anion Gap 11.2 mEq/L (5-15); Blood Urea Nitrogen 28 mg/dl (9-20); Calcium 9.5 mg/dl (8.4-10.2); Carbon Dioxide 26 mmol/L (22.0-30.0); Chloride 103 mmol/L (98-107); Creatinine,Serum 1.70 mg/dl (0.66-1.25); Estimated Glomerular Filt Rate 39 ml/min (>60); GFR (African American) 48 ML/MIN (>60); Glucose 120 mg/dl (74-100); Potassium 5.2 mmoL/L (3.5-5.1); Sodium 135 mmol/L (136-145)
--- OUTSIDE RECORDS SUMMARY | 2025-06-18 13:56 | XMS_ITS | Encounter Summary ---
Author Organization [facility] Address [address] [place] [address] Care Team Providers Care Physical Geographer Name Role Phone Javon Howard MD Primary Care Provider +1- [phone] Encounter Details Date Type Department Care Team (Latest Contact Info) Description 05/07/2025 Travel Social History Tobacco Use Types Packs/Day Years Used Date Smoking Tobacco: Former Cigarettes 2 25 0 02/03/1987 - 02/04/2012 Smokeless Tobacco: Never Alcohol Use Standard Drinks/Week Comments No 0 (1 standard drink = 0.6 oz pur e alcohol) [facility] Utilities Answer Date Recorded In the [...] and heating? Not hard at all 03/10/2024 [facility] [place] of Occupat ional Health - Occupational Stress [...] GED or equivalent No 03/10/2024 Preferred Language Austrian 03/10/2024 PHQ-2 Answer Date Recorded Retired PHQ-9: [...] Visit [facility] GASTROENTEROLOGY [address] [facility] [address] [place] [id number] Stephanie Merchant, AIR TABLE OPERATOR [address] [facility] [address] [place] [address] 05/13/2026 9:15 AM EDT Office Visit [facility] CARDIOLOGY [address] [place] [address] Mariella Perales APRN [address] [facility] [address] [place], [place] [id number] documented as of this encounter Visit Diagnoses Not on filedocumented in this encounter Care Teams Physical Geographer Relationship Specialty Start Date End Date Javon Howard MD [facility]0 [place] [id number] PCP - General Family Medicine 02/12/25 documented as of this encounter
--- OUTSIDE RECORDS SUMMARY | 2025-06-18 13:56 | XMS_ITS | Encounter Summary ---
Author Organization [facility] Address [address] [place] [address] Care Team Providers Care Mysql Database Developer Name Role Phone Javon Howard MD Primary Care Provider +1- [phone] Encounter Details Date Type Department Care Team (Late st Contact Info) Description 05/13/2025 Results Follow-Up [facility] CARDIOLOGY [address] [facility] [address] [place] [address] Mariella Perales APRN [address] [facility] [address] [place] [address] Social History Tobacco Use Types Packs/Day Years Used Date Smoking Tobacco: Former Cigarettes 2 25 0 02/03/1987 - 02/04/2012 Smokeless Tobacco: Never Alcohol Use Standard Drinks/Week Comments No 0 (1 standard drink = 0.6 oz pur e alcohol) [facility] Utilities Answer Date Recorded In the past 12 months has [employer] electric, gas, oil, or water company threatened [...] and heating? Not hard at all 03/10/2024 [facility] [place] of Occupat ional Health - Occupational Stress [...] GED or equivalent No 03/10/2024 Preferred Language French 03/10/2024 PHQ-2 Answer Date Recorded Retired PHQ-9: [...] Visit [facility] GASTROENTEROLOGY [address] [facility] [address] [place] [id number] Stephanie Merchant, PRACTICE MANAGERS [address] [facility] [address] [place] [address] 05/13/2026 9:15 AM EDT Office Visit [facility] CARDIOLOGY [address] [place] [address] Mariella Perales, RUDDY [address] [facility] [address] [place] [address] documented as of this encounter Visit Diagnoses Not on filedocumented in this encounter Care Teams Mysql Database Developer Relationship Specialty Start Date End Date Javon Howard MD [address] [place] [address] PCP - General Family Medicine 02/12/25 documented as of this encounter
--- OUTSIDE RECORDS SUMMARY | 2025-06-18 13:57 | XMS_ITS | Clinical Summary ---
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 12/18 Iron deficiency anemia 12/19/2019 Vitamin B12 deficiency (non anemic) 12/19/2019 Mixed hyperlipidemia 12/19/2019 [facility] current use of anticoagulant 0 Benign prostatic hyperplasia without urinary obs truction 12/19/2019 Essential hypertension 12/19/2019 Hypothyroidism 12/19/2019 [facility] (current) use of anticoagulants 2019 Type 2 [...] Department Care Team Description 05/13/2025 Results Follow-Up [facility] CARDIOLOGY [address] [facility] [address] [place] [address] Mariella Perales APRN 05/07/2025 9:00 AM EDT Office Visit [facility] CARDIOLOGY [address] [place] [address] Nguyễn Rain MD Coronary artery disease involving shoshone-paiute coronary artery of shoshone-paiute heart without angina pectoris (Primary Dx) 05/07/2025 Travel 04/18/2025 Refill [facility] GASTR[facility]ENTEROLOGY [address] [facility] [address] [place] [address] Stephanie Merchant, ASSISTANT ANALYST Nausea from Last 3 Months Immunizations Immunization [...] drink = 0.6 oz pur e alcohol) [facility] Mov[employer] Groupities Answer Date Recorded In the past 12 months has [employer] gas, oil, or water [employer] threatened to shut off services in your [...] and heating? Not hard at all 03/10/2024 [facility] [place] of Occupat ional Health - Occupational Stress [...] GED or equivalent No 03/10/2024 Preferred Language Bahamian 03/10/2024 PHQ-2 Answer Date Recorded Retired PHQ-9: [...] Description 02/04/2026 1:15 PM EDT Office Visit [facility]STR[facility]ENTEROLOGY [address] [facility] [address] [place] [address] Stephanie Merchant, ASSISTANT ANALYST [address] [facility] [address] [place] [address] 05/13/2026 9:15 AM EDT Office Visit [facility] CARDIOLOG[facility] [address] [place] [address] Mariella Perales, RUDDY [address] [facility] [address] [place] [address] Health Maintenance Due Date Last Done Comments [...] SCREENING 03/10/2029 Medical Devices Implanted Type Area Payable Representative Device Identifier Shelf Expiration Date Model / Serial / Lot Dawson Mcgarry Radiomark Disk Ro Carmen - [id number] Implanted:Qty : 1 on 05/28/2019 by Nguyễn Calderon MD at [facility] Implant [employer] [id number] / / Dev Clip Endo [id number] Contrl Rot 235cm - [id number] Implanted:Qty : 1 on 03/10/2024 by Quinn Paz MD at [facility] Implant N/A: Sigmoid Colon [employer] 11/06/2026 [id number] / / [id number] Dev Clip Hemo Resolution 235cm 2.8mm - [id number] Implanted:Qty : 4 on 03/11/2024 by Quinn Paz MD at [facility] Implant N/A: Sigmoid Colon [employer] 11/06/2026 [id number] / / [id number] Description:Sigmoid polyp si te Stent Xience 5 Rx 3x18mm - [id number] Implanted:Qty : 1 on 03/02/2016 by Sabra Martel MD at [facility] G[employer] VASCULAR 11/02/2018 [id number] / / [id number] Procedures Procedure Name Priority Date/Time Associated Diagnosis Comments SCANNED - LABS 04/09/2025 COLONOSCOPY 03/10/2024 8:48 AM EDT POCT OCCULT BLOOD STOOL STAT 03/08/2024 11:[address] ANGIOGRAM CHEST STAT 06/09/2019 2: 00 PM EST HEMOGLOBIN A1C Routine 05/27/2019 12:50 PM EDT CAD in shoshone-paiute artery LIPID PANEL STAT 05/17/2019 8:22 AM [...] - 5.60 % 05/27/2019 2:12 PM EDT [facility] Blood Venipuncture / Unknown 05/27/2019 12:50 PM EDT 05/27/2019 1:14 PM EDT Narrative [facility] - 05/27/2019 2:12 PM EDT Hemoglobin A1C Ranges: Increased Risk for Diabetes 5.7% to 6.4% Diabetes >= 6.5% Diabetic Goal < 7.0% Grzegorz BENNETT LAB BLOOD ORDERABLES Final Result [facility]
[address] [place] [address], * (ABNORMAL) Lipid Panel (05/17/2019 8:22 AM EDT) Total Cholesterol 156 0 - 200 mg/dL 05/17/2019 9:10 AM EDT [facility] Triglycerides 65 0 - 150 mg/dL 05/17/2019 9:10 AM EDT [facility] HDL Cholesterol 69(H) 40 - 60 mg/dL 05/17/2019 9:10 AM EDT [facility] LDL Cholesterol 74 0 - 100 mg/dL 05/17/2019 9:10 AM EDT [facility] VLDL Cholesterol 13 mg/dL 05/17/20 19 9:10 AM EDT [facility] LDL/HDL Ratio 1.07 05/17/2019 9:10 AM T [facility] Blood Line / Unknown 05/17/2019 8: 22 AM EDT 05/17/2019 8:47 AM EDT Narrative [facility] - 05/17/2019 9:10 AM EDT Cholesterol [...] [place] PA-C LAB BLOOD ORDERABLES Final Result [facility]
[address] [place] [address], from Last 3 Months or Most Recently [...] pulse or is breathing): Full Care Teams Hotel Operation Manager Relationship Specialty Start Date End Date Javon Howard MD [facility] [place] [address] PCP - General Family Medicine 02/12/25
--- OUTSIDE RECORDS SUMMARY | 2025-06-18 13:57 | XMS_ITS ---
Author Organization [facility] Address [address] [place] [address] Care Team Providers Care Clothing Examiner Name Role Phone Javon Howard MD Primary Care Provider +1- [phone] Active Problems Problem Noted Date Diagnosed Date [...] of urinary bladder 07/07/2021 Coronary arteriosclerosis in confederated salish artery 12/18 Iron deficiency anemia 12/19/2019 Vitamin B12 deficiency (non anemic) 12/19/2019 Mixed hyperlipidemia 12/19/2019 long-term current use of anticoagulant 0 Benign prostatic hyperplasia without urinary obs truction 12/19/2019 Essential hypertension 12/19/2019 Hypothyroidism 12/19/2019 voltage 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
--- OUTSIDE RECORDS SUMMARY | 2025-06-18 13:57 | XMS_ITS | Data Portability ---
Author Organization [facility] DARLYN FischerS CLEMENTON CLOSED Address [address] [place] [address] Care Team Providers Care Sdet Name Role Phone SANDOR VICTOR Urologist NEDA RAJPUT Urologist GLORIA GARCIA Primary Care Provider [phone] Assessment Encounter Date Assessment Date Assessment LastModified [...] Organization Details Last Modified Time Details Appointments [facility] TO 2024 01:15P Emily ARNDT MD Not available Not available Not available Lab urinaly sis panel, auto 2024 025 [facility], [address], [address], [place], [address], 09/16/2024 08:21:25 urinaly sis panel, auto 2023 024 [facility], [address], [address], [place], [address], 06/09/2024 20:25:56 Referral None recorde d. Procedures None recorde d. Surgeries cystosc opy (SURG) 2024 [email or web address] [facility], [address] [place] [address], [facility] [address], [place], [address], 06/17/2025 11:10:09 cystosc opy (SURG) [address] [facility], [address] [place] [address], [facility] [address], [place], [address], 07/25/2024 07:23:53 Imaging US, retrope bettinau emily, limited 2024 025 [facility], [address] [place] [address], [address], 09/16/2024 08:21:25 CT, abdomen , w/wo contras t 2023 024 [facility], [address] [place] [address], [address], 07/10/2024 12:01:05 Medication Orders nystati n 100,000 unit/gr am topical powder 2020 021 [facility] [id number], [address] [place] [address], [address], 06/30/2021 09:50:02 Patient TargetsNo targets recorded. Patient Instructions Encounter Date Encounter Id Patient Instructions Last Modified By Organization Details Last Modified Time 09/12/2024 [id number] - Continue takin g tamsulosin as prescribed [...] auto Unknown Analyte Clean Catch Not Available [facility] Surgery Schedule [address] [place], [address], 10/12/2022 14:16:07 10/13/19 23 10/12/2022 urina lysis panel , auto Unknown Analyte Yellow Not Available [facility] Surgery Schedule [address] [place], [address], 10/12/2022 14:16:07 10/13/1910/12/2022 urina lysis panel , auto Unknown Analyte Clear Not Available [facility] Surgery Schedule [address] [place], [address], 10/12/2022 14:16:10/13/19 23 10/12/2022 urina lysis panel , auto Unknown Analyte 1.025 Not Available [facility] Surgery Schedule [address] [place], [address], 10/12/2022 14:16:10/13/1910/12/2022 urina lysis panel , auto Unknown Analyte 1.003- 1.035 Not Available [facility] Surgery Schedule [address] [place], [address], 10/12/2022 14:16:07 10/13/19 23 10/12/2022 urina lysis panel , auto Unknown Analyte 5.0 Not Available [facility] Surgery Schedule [address] [place], [address], 10/12/2022 14:16:10/13/19 23 10/12/2022 urina lysis panel , auto Unknown Analyte 5.0-8. 0 Not Available [facility] Surgery Schedule [address] [place], [address], 10/12/2022 14:16:07 10/13/19 23 10/12/2022 urina lysis panel , auto Unknown Analyte Negati ve Not Available [facility] Surgery Schedule [address] [place], [address], 10/12/2022 14:16:07 10/13/19 23 10/12/2022 urina lysis panel , auto Unknown Analyte Negati ve Not Available [facility] Surgery Schedule [address] [place], [address], 10/12/2022 14:16:07 10/13/19 23 10/12/2022 urina lysis panel , auto Unknown Analyte Negati ve Not Available [facility] Surgery Schedule [employer] [place], [address], 10/12/2022 14:16:07 10/13/19 23 10/12/2022 urina lysis panel , auto Unknown Analyte Negati ve Not Available [facility] Surgery Schedule [employer] [place], [address], 10/12/2022 14:16:07 10/13/19 23 10/12/2022 urina lysis panel , auto Unknown Analyte 500 mg/dl (+++) Not Available [facility] Surgery Schedule [address] [place] [address], [address], 10/12/2022 14:16:07 10/13/19 23 10/12/2022 urina lysis panel , auto Unknown Analyte Negati ve Not Available [facility] Surgery Schedule [address] [place], [address], 10/12/2022 14:16:07 10/13/19 23 10/12/2022 urina lysis panel , auto Unknown Analyte Normal Not Available [facility] Surgery Schedule [address] [place], [address], 10/12/2022 14:16:07 10/13/19 23 10/12/2022 urina lysis panel , auto Unknown Analyte Normal Not Available [facility] Surgery Schedule [address] [place], [address], 10/12/2022 14:16:07 10/13/19 23 10/12/2022 urina lysis panel , auto Unknown Analyte Negati ve Not Available [facility] Surgery Schedule [address] [place], [address], 10/12/2022 14:16:07 10/13/19 23 10/12/2022 urina lysis panel , auto Unknown Analyte Negati ve Not Available [facility] Surgery Schedule [address] [place], [address], 10/12/2022 14:16:07 10/13/19 23 10/12/2022 urina lysis panel , auto Unknown Analyte Normal Not Available [facility] Surgery Schedule [address] [place], [address], 10/12/2022 14:16:07 10/13/19 23 10/12/2022 urina lysis panel , auto Unknown Analyte Normal 1 mg/dl Not Available [facility] Schedule [address] [place], [address], 10/12/2022 14:16:07 10/13/19 23 10/12/2022 urina lysis panel , auto Unknown Analyte Negati ve Not Available [facility] Surgery Schedule [address] [place], [address], 10/12/2022 14:16:07 10/13/19 23 10/12/2022 urina lysis panel , auto Unknown Analyte Negati ve Not Available [facility] Schedule [address] [place], [address], 10/12/2022 14:16:07 10/13/19 23 10/12/2022 urina lysis panel , auto Unknown Analyte Negati ve Not Available [facility] Surgery Schedule [address] [place], [address], 10/12/2022 14:16:07 03/0810/12/2022 urina lysis panel , auto Unknown Analyte Negati ve Not Available [facility] Schedule [address] [place], [place], [address], 10/12/2022 14:16:07 06/06/2006/06/2024 urina lysis panel , auto Unknown Analyte Clean Catch Not Available [facility] [address], [place], [address], 06/06/2024 08:49:02 06/06/2006/06/2024 urina lysis panel , auto Unknown Analyte Yellow Not Available [facility] [address], [place], [address], 06/06/2024 08:49:02 06/06/2006/06/2024 urina lysis panel , auto Unknown Analyte Clear Not Available [facility] [address], [place], [address], 06/06/2024 08:49:02 06/06/2006/06/2024 urina lysis panel , auto Unknown Analyte 1.015 Not Available [facility] [address], [place], [address], 06/06/2024 08:49:02 06/06/2006/06/2024 urina lysis panel , auto Unknown Analyte 1.003- 1.035 Not Available [facility] [address], [place], [address], 06/06/2024 08:49:02 06/06/2006/06/2024 urina lysis panel , auto Unknown Analyte 5.0 Not Available [facility] [address], [place], [address], 06/06/2024 08:49:02 06/06/2006/06/2024 urina lysis panel , auto Unknown Analyte 5.0-8. 0 Not Available [facility] [address], [place], [address], 06/06/2024 08:49:02 06/06/2006/06/2024 urina lysis panel , auto Unknown Analyte Negati ve Not Available [facility] [address], [place], [address], 06/06/2024 08:49:02 06/06/2006/06/2024 urina lysis panel , auto Unknown Analyte Negati ve Not Available [facility] [address], [place], [address], 06/06/2024 08:49:02 06/06/2006/06/2024 urina lysis panel , auto Unknown Analyte Negati ve Not Available [facility] [address], [place], [address], 06/06/2024 08:49:02 06/06/2006/06/2024 urina lysis panel , auto Unknown Analyte Negati ve Not Available [facility] [address], [place], [address], 06/06/2024 08:49:02 06/06/2006/06/2024 urina lysis panel , auto Unknown Analyte 500 mg/dl (+++) Not Available [facility] [address], [place], [address], 06/06/2024 08:49:02 06/06/2006/06/2024 urina lysis panel , auto Unknown Analyte Negati ve Not Available [facility] [address], [place], [address], 06/06/2024 08:49:02 06/06/2006/06/2024 urina lysis panel , auto Unknown Analyte Normal Not Available [facility] [address], [place], [address], 06/06/2024 08:49:02 06/06/2006/06/2024 urina lysis panel , auto Unknown Analyte Normal Not Available [facility] [address], [place], [address], 06/06/2024 08:49:02 06/06/2006/06/2024 urina lysis panel , auto Unknown Analyte Negati ve Not Available [facility] [address], [place], [address], 06/06/2024 08:49:02 06/06/2006/06/2024 urina lysis panel , auto Unknown Analyte Negati ve Not Available [facility] [address], [place], [address], 06/06/2024 08:49:02 06/06/2006/06/2024 urina lysis panel , auto Unknown Analyte Normal Not Available [facility] [address], [place], [address], 06/06/2024 08:49:02 06/06/2006/06/2024 urina lysis panel , auto Unknown Analyte Normal 1 mg/dl Not Available [facility] [address], [place], [address], 06/06/2024 08:49:02 06/06/2006/06/2024 urina lysis panel , auto Unknown Analyte Negati ve Not Available [facility] [address], [place], [address], 06/06/2024 08:49:02 06/06/2006/06/2024 urina lysis panel , auto Unknown Analyte Negati ve Not Available [facility] [address], [place], [address], 06/06/2024 08:49:02 06/06/2006/06/2024 urina lysis panel , auto Unknown Analyte Negati ve Not Available [facility] [address], [place], [address], 06/06/2024 08:49:02 06/06/2006/06/2024 urina lysis panel , auto Unknown Analyte Negati ve Not Available [facility] [address], [place], [address], 06/06/2024 08:49:02 07/26/20 24 07/26/2024 urina lysis panel , auto Unknown Analyte Clean Catch Not Available [facility] Surgery Schedule [address] [facility], [place], [address], 07/26/2024 14:10:24 07/26/20 24 07/26/2024 urina lysis panel , auto Unknown Analyte Yellow Not Available [facility] Surgery Schedule [address] [place], [address], 07/26/2024 14:10:24 07/26/20 24 07/26/2024 urina lysis panel , auto Unknown Analyte Clear Not Available [facility] Surgery Schedule [address] [place], [address], 07/26/2024 14:10:24 07/26/20 24 07/26/2024 urina lysis panel , auto Unknown Analyte 1.015 Not Available [facility] Surgery Schedule [address] [place] [address], [address], 07/26/2024 14:10:24 07/26/20 24 07/26/2024 urina lysis panel , auto Unknown Analyte 1.003- 1.035 Not Available [facility] Surgery Schedule [address] [place] [address], [address], 07/26/2024 14:10:24 07/26/20 24 07/26/2024 urina lysis panel , auto Unknown Analyte 5.0 Not Available [facility] Surgery Schedule [address] [place] [address], [address], 07/26/2024 14:10:24 07/26/20 24 07/26/2024 urina lysis panel , auto Unknown Analyte 5.0-8. 0 Not Available [facility] Schedule [address] [place], [address], 07/26/2024 14:10:24 07/26/20 24 07/26/2024 urina lysis panel , auto Unknown Analyte 25 Andrey/ul Trace Not Available [facility] Schedule [address] [place], [address], 07/26/2024 14:10:24 07/26/20 24 07/26/2024 urina lysis panel , auto Unknown Analyte Negati ve Not Available [facility] Schedule [address] [place], [address], 07/26/2024 14:10:24 07/26/20 24 07/26/2024 urina lysis panel , auto Unknown Analyte Negati ve Not Available [facility] Schedule [address] [place], [address], 07/26/2024 14:10:24 07/26/20 24 07/26/2024 urina lysis panel , auto Unknown Analyte Negati ve Not Available [facility] Schedule [address] [place], [address], 07/26/2024 14:10:24 07/26/20 24 07/26/2024 urina lysis panel , auto Unknown Analyte 500 mg/dl (+++) Not Available [facility] Schedule [address] [place] [address], [address], 07/26/2024 14:10:24 07/26/20 24 07/26/2024 urina lysis panel , auto Unknown Analyte Negati ve Not Available [facility] Schedule [address] [place] [address], [address], 07/26/2024 14:10:24 07/26/20 24 07/26/2024 urina lysis panel , auto Unknown Analyte 100 mg/dl Not Available [facility] Surgery Schedule [employer] [place], [address], 07/26/2024 14:10:24 07/26/20 24 07/26/2024 urina lysis panel , auto Unknown Analyte Normal Not Available [facility] Surgery Schedule [employer] [place], [address], 07/26/2024 14:10:24 07/26/20 24 07/26/2024 urina lysis panel , auto Unknown Analyte Negati ve Not Available [facility] Surgery Schedule [employer] [place], [address], 07/26/2024 14:10:24 07/26/20 24 07/26/2024 urina lysis panel , auto Unknown Analyte Negati ve Not Available [facility] Schedule [address] [place], [address], 07/26/2024 14:10:24 07/26/20 24 07/26/2024 urina lysis panel , auto Unknown Analyte Normal Not Available [facility] Surgery Schedule [address] [place], [address], 07/26/2024 14:10:24 07/26/20 24 07/26/2024 urina lysis panel , auto Unknown Analyte Normal 1 mg/dl Not Available [facility] Schedule [address] [place], [address], 07/26/2024 14:10:24 07/26/20 24 07/26/2024 urina lysis panel , auto Unknown Analyte Negati ve Not Available [facility] Surgery Schedule [address] [place], [address], 07/26/2024 14:10:24 07/26/20 24 07/26/2024 urina lysis panel , auto Unknown Analyte Negati ve Not Available [facility] Surgery Schedule [address] [place], [address], 07/26/2024 14:10:24 07/26/20 24 07/26/2024 urina lysis panel , auto Unknown Analyte Negati ve Not Available [facility] Surgery Schedule [address] [place], [address], 07/26/2024 14:10:24 07/26/20 24 07/26/2024 urina lysis panel , auto Unknown Analyte Negati ve Not Available [facility] Schedule [address] [place], [address], 07/26/2024 14:10:24 09/12/19 25 09/12/2024 urina lysis panel , auto Unknown Analyte Clean Catch Not Available [facility] [address], [place], [address], 09/12/2024 15:39:52 09/12/19 25 09/12/2024 urina lysis panel , auto Unknown Analyte Yellow Not Available [facility] [address], [place], [address], 09/12/2024 15:39:52 09/12/19 25 09/12/2024 urina lysis panel , auto Unknown Analyte Clear Not Available [facility] [address], [place], [address], 09/12/2024 15:39:52 09/12/19 25 09/12/2024 urina lysis panel , auto Unknown Analyte 1.020 Not Available [facility] [address], [place], [address], 09/12/2024 15:39:52 09/12/19 25 09/12/2024 urina lysis panel , auto Unknown Analyte 1.003- 1.035 Not Available [facility] [address], [place], [address], 09/12/2024 15:39:52 09/12/19 25 09/12/2024 urina lysis panel , auto Unknown Analyte 5.0 Not Available [facility] [address], [place], [address], 09/12/2024 15:39:52 09/12/19 25 09/12/2024 urina lysis panel , auto Unknown Analyte 5.0-8. 0 Not Available [facility] [address], [place], [address], 09/12/2024 15:39:52 09/12/19 25 09/12/2024 urina lysis panel , auto Unknown Analyte Negati ve Not Available [facility] [address], [place], [address], 09/12/2024 15:39:52 09/12/19 25 09/12/2024 urina lysis panel , auto Unknown Analyte Negati ve Not Available [facility] [address], [place], [address], 09/12/2024 15:39:52 09/12/19 25 09/12/2024 urina lysis panel , auto Unknown Analyte Negati ve Not Available [facility] [address], [place], [address], 09/12/2024 15:39:52 09/12/19 25 09/12/2024 urina lysis panel , auto Unknown Analyte Negati ve Not Available [facility] [address], [place], [address], 09/12/2024 15:39:52 09/12/19 25 09/12/2024 urina lysis panel , auto Unknown Analyte 500 mg/dl (+++) Not Available [facility] [address], [place], [address], 09/12/2024 15:39:52 09/12/19 25 09/12/2024 urina lysis panel , auto Unknown Analyte Negati ve Not Available [facility] [address], [place], [address], 09/12/2024 15:39:52 09/12/19 25 09/12/2024 urina lysis panel , auto Unknown Analyte >1000 mg/dl Not Available [facility] [address], [place], [address], 09/12/2024 15:39:52 09/12/19 25 09/12/2024 urina lysis panel , auto Unknown Analyte Normal Not Available [facility] [address], [place], [address], 09/12/2024 15:39:52 09/12/19 25 09/12/2024 urina lysis panel , auto Unknown Analyte Negati ve Not Available [facility] [address], [place], [address], 09/12/2024 15:39:52 09/12/19 25 09/12/2024 urina lysis panel , auto Unknown Analyte Negati ve Not Available [facility] [address], [place], [address], 09/12/2024 15:39:52 09/12/19 25 09/12/2024 urina lysis panel , auto Unknown Analyte Normal Not Available [facility] [address], [place], [address], 09/12/2024 15:39:52 09/12/19 25 09/12/2024 urina lysis panel , auto Unknown Analyte Normal 1 mg/dl Not Available [facility] [address], [place], [address], 09/12/2024 15:39:52 09/12/19 25 09/12/2024 urina lysis panel , auto Unknown Analyte Negati ve Not Available [facility] [address] [facility] [address], [place], [address], 09/12/2024 15:39:52 09/12/19 25 09/12/2024 urina lysis panel , auto Unknown Analyte Negati ve Not Available [facility] [address] [facility] [address], [place], [address], 09/12/2024 15:39:52 09/12/19 25 09/12/2024 urina lysis panel , auto Unknown Analyte Negati ve Not Available [facility] [address] [facility] [address], [place], [address], 09/12/2024 15:39:52 09/12/19 25 09/12/2024 urina lysis panel , auto Unknown Analyte Negati ve Not Available [facility] [address] [facility] [address], [place], [address], 09/12/2024 15:39:52 05/22/20 24 05/02/2024 US, abdom en No observ ation record ed. [facility] [address] [facility] [address], [place], [address], 05/22/2024 19:35:32 07/10/20 24 07/10/2024 CT, abdom en, w/wo contr ast [facility] [address] [facility] [place] [address] Patien t Name: UMBERTO NUNES Patien t : 948 Patien t Orderi ng Provid er: KERRY OWEN JR EXAM DATE: 2023 EXAM: CT ABDOME N [...] 350 (1 x 100 mL bottle of [facility] [address]-9 1). none was wasted and discar [...] Branch MD on 024 11:55 AM [email or web address] [facility] [address] [place] [address], [address], 07/11/2024 15:59:22 Result Notes Documentation Provider Name and Address Organization Details Recorded Time Ct, Abdomen, W/wo Contrast : [address] [address] Patient Name: RITCHIE NUNES Patient : 1945 Patient Ordering Provider: KERRY ARNDT JR EXAM DATE: 07/10/2024 EXAM: CT ABDOMEN W/WO CONTRAST CLINICAL INFORMATION: TECHNIQUE: No POC testing for eGFR was performed due to absence of risk factors. Multiple axial CT images of the abdomen were obtained before and in the arterial and portal venous phases after injection of 100 mL Omnipaque 350 (1 x 100 mL bottle of [facility] [id number]). none was wasted and discarded. No oral contrast or water was administered to the patient. COMPARISON: None. FINDINGS: LOWER THORAX: Lung bases are clear. No obvious cardiac abnormality. LIVER, PANCREAS AND BILIARY TRACT: Liver is normal in size, outline and attenuation. 1 cm benign cyst.5 Hepatic artery, portal vein, hepatic veins and their branches and tributaries are normal. No intra or extrahepatic biliary dilatation is present. Gallbladder is normal. No pancreatic mass is visualized. Pancreatic duct is normal in caliber. RENAL SYSTEM: Numerous cysts are present involving both kidneys ranging in size from 5 mm to 6.6 cm. Certain of these have slightly higher density than would be expected for simple cyst formation although there is very little change in size and appearance since the prior study. None demonstrate significant enhancement. UPPER ABDOMINAL ORGANS: Spleen, adrenals and both kidneys are normal. BOWEL AND MESENTERY: Stomach, small bowel and colon are normal. No mesenteric lymphadenopathy or peritoneal free fluid. RETROPERITONEUM: Aorta, IVC and their branches are patent and normal. No retroperitoneal lymphadenopathy. ABDOMINAL WALL AND SKELETAL STRUCTURES: Normal. COMBINED IMPRESSION: 1. Numerous bilateral renal cysts. Grossly stable appearance from prior study. 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 in the stable in size Interpreted By: Ian Branch MD Magdalena Rai [facility], [facility] 07/11/2024 15:59:22 Problems Name Problem SNOMED Code Status Onset Date Resolution Date Notes Provider Name and Address Organization Details Recorded Time Hypertensiv e disorder 00081682 Active 2019 Carmencita Elly [facility], [facility] 0 13:25:34 Heart disease 99515343 Active 2019 Carmencita Elly [facility], [facility] 0 13:27:23 Chronic obstructive pulmonary disease 34555658 Active 2019 Carmencita Elly [facility], [facility] 0 13:27:29 Severe chronic obstructive pulmonary disease 870942803 Active 2019 LES COLLINS MD [address] [place] [address], [phone] 1, [facility] 0 13:01:06 Coronary arterioscle rosis in [place] artery 1331143708358 Active 2019 LES COLLINS MD [address] [place] [address], [address] 1, [facility] 0 13:01:07 Type 2 diabetes mellitus without complicatio n 685279012 Active 2019 LES COLLINS MD [address] [place] [address], 18494-812 1, [facility] 0 13:02:23 Essential hypertensio n 71607445 Active 2019 LES COLLINS MD [address] [place] [address], 73721-177 1, [facility] 0 13:02:24 Mixed hyperlipide lexy 156792030 Active 2019 LES COLLINS MD [address] [place] [address], 10316-288 1, [facility] 0 13:02:26 Hypothyroid ism 21605064 Active 2019 LES COLLINS MD [address] [place] [address], 37967-227 1, [facility] 0 13:02:27 Long-term current use of anticoagula nt 400015612 Active 2019 LES COLLINS MD [address] [place] [address], 50965-484 1, [facility] 0 13:02:29 Benign prostatic hyperplasia without outflow obstruction 661366608 Active 2019 LES COLLINS MD [address] [place] [address], 74349-110 1, [facility] 0 13:02:33 Iron deficiency anemia 27494946 Active 2019 LES COLLINS MD [address] [place] [address], 21431-385 1, [facility] 0 13:03:07 Vitamin B12 deficiency (non anemic) 84348954 Active 2019 LES COLLINS MD [address] [place] [address], 48462-261 1, [facility] 0 13:03:13 Malignant neoplasm of urinary bladder 775346088 Active 2020 KERRY ARNDT JR, MD [address] [place] [address], 75[address]-330 1, [facility] 1 20:53:14 Renal mass 678773998 Active 2023 KERRY ARNTD JR, MD [address] [place] [address], 32713-480 1, [facility] 4 20:25:04 Congenital renal cyst 4419697579886 05 Active 2024 KERRY ARNDT JR, MD [address] [place] [address], 84937-199 1, [facility] 5 08:20:53 Problem Notes None recorded. Procedures Surgical History Date Name Laterality Status Provider Name and Address Organization Details Recorded Time 07/26/20 24 Cystoscopy - male completed KERRY ARNDT JR, MD [address] [place] [address], [phone], [facility] 07/26/2024 16:10:41 10/13/19 23 Cystoscopy - male completed KERRY ARNDT JR, MD [address] [place] [address], [phone], [facility] 10/12/2022 15:26:31 05/21/20 19 CABG completed Carmencita Elly [facility] 12/17/2019 13:23:36 05/15/20 19 Cystoscopy - male completed SANDOR VICTOR MD [address] [place] [address], [phone] 05/15/2019 13:06:21 Coronary Artery Stent completed Carmencita Elly [facility] 12/17/2019 13:24:07 Appendectomy completed Carmencita Elly [facility] 12/17/2019 13:24:14 operation on urinary bladder completed Carmencita Elly [facility] 12/17/2019 13:24:38 Imaging Results None recorded. Procedure Notes None recorded. Medical Equipment None Reported. Allergies Allergen ID Allergen Name Allergen Category Reaction Reaction Severity Criticality Documentation Date Start Date Code Code System Note Provider Name and Address Organization Details Recorded Time 793130 Product containin g penicilli n (product) medicatio n nausea mild Not available 07/01/20162006 42239 8001 SNOMED [facility] 0 13:14:09 196497 codeine medicatio n nausea mild Not available 07/01/20162006 2670 RxNorm [facility] 0 13:14:03 Medications Name Sig Start Date Stop Date Status Note LastModified by Organization Details LastModified Time losartan potassium 50 mg tabs 02/03 completed Not Available Not Available Not Available anoro ellipt aer 62.5-25 02/03 completed Not [...] Updated DateTime 09/12/2024 167.64 cm 23.1 kg/m2 43059.71 g Kalli Ceballos [facility] 09/12/2024 15:09:22 Date Recorded Body height Body mass index (BMI) Body weight Provider Name and Address Organization Details Last Updated DateTime 06/06/2024 168.91 cm 23.2 kg/m2 26700.49 g Erin Mooney [facility] 06/06/2024 08:42:34 Date Recorded Body height Body mass index (BMI) Body weight Provider Name and Address Organization Details Last Updated DateTime 06/30/2021 167.64 cm 22.9 kg/m2 34345.12 g Dorothea Carr [facility] 06/30/2021 09:44:13 Social History Question Answer Notes LastModified by Organizat ion Details LastModified Time Tobacco Smoking Status Former Smoker started age 17, stopped 67 [facility] 13:21:20 What Is Your Level Of [...] Of Your Most Recent Tobacco Screening? 09/12/2024 [email or web address] Information not available 09/12/2024 Seat Belts Used [...] 12/17/2019 Are you able to care for yourself independently? Yes Information not available 12/17/2019 What is [...] Response Coronary Artery Disease Y Arthritis Y Cancer Y Stroke Y Urinary Tract Infection Y High Cholesterol Y Chronic Obstructive Pulmonary Disease Y Hypertension Y Immunizations Vaccine Type Date Status Note Provider Nam e and Address Organization Details Recorded Time Influenza, split virus, quadrivalent, preservative 9 completed [facility] 12/19/2019 11:33:02 Past Encounters Encounter ID Performer Location Encounter Start Date Encounter Closed Date Diagnosis/Indication Diagnosis SNOMED-CT Code Diagnosis ICD10 Code Diagnosis IMO Codes Diagnosis Note [id number] QM_IMPORTS [place] [address] 11/07/2016 19:20:51 11/07/2016 19:20:51 [id number] SANDOR VICTOR MD UROLOGY SB CLOSED [address] [place] [address] 1 05/02/2019 08:25:53 05/02/2019 09:52:04 Benign prostatic hyperplasia with outflow obstruction 467014199 N40.1 Sami hematuria 32035831 5 R31.0 History of primary malignant neoplasm of urinary bladder 164772570 Z85.51 [id number] SANDOR VICTOR MD SURGERY SCHEDULE [address] [place] [address] 1 05/15/2019 11:11:10 05/15/2019 11:15:00 [id number] LES COLLINS MD INTERNAL MEDICINE [address] [place] [address] 12/19/2019 11:07:19 12/19/2019 13:15:06 Severe chronic obstructive pulmonary disease 180592204 J44.9 anoro pred 2.5 mg daily oxygen at night not aware of PFT results but sounds like had it within past year Long-term current use of anticoagulant 976982668 Z79.01 not on eliquis-wa s on for afib Coronary arteriosclerosis in [place] artery 3022975934 107 I25.10 cabg 2019-[facility] on full dose asa 325 statin not aware of EF Mixed hyperlipidemia 267 253838 E78.2 statin Hypothyroidism 28908346 E03.9 hypothyroi d-check tsh Essential hypertension 08643747 I10 can check less often if they wish Type 2 jose betes mellitus without complication 810905559 E11.9 takes metformin he is on prednisone so will see some resistance there no matter what lifestyle check a1c macr pending lipid pending Benign pro static hyperplasia without outflow obstruction 499937553 N40.0 tamsulosin Atrial fibrillation 4943 6004 I48.91 was in hosp stay-curre ntly NSR Iron defic iency anemia 23246718 D50.9 Vitamin B1 2 deficiency (non anemic) 32840198 E53.8 [id number] SANDOR VICTOR MD UROLOGY CLOSED [address] [place] [address] 01/21/2020 14:47:26 01/21/2020 16:02:13 Benign prostatic hyperplasia with outflow obstruction 355679797 N40.1 History of primary malignant neoplasm of urinary bladder 342536268 Z85.51 Urgent charu cyril to urinate 22647585 R39.15 [id number] NEDA RAJPUT MD UROLOGY CLOSED [address] [place] [address] 02/03/2021 10:39:29 02/03/2021 12:36:47 History of primary malignant neoplasm of urinary bladder 087361620 Z85.51 Hemospermia 72108923 R36 .1 Lower urin quincy tract symptoms due to benign prostatic hypertrophy 6699715630 9101 N40.1 Screening for malignant neoplasm of prostate 938095995 Z12.5 Itching of skin 59301416 0 L29.9 [id number] KERRY ARNDT JR, MD [address] [place] [address] 5 06/30/2021 09:17:13 06/30/2021 12:05:12 Pruritic disorder 158578490 L29.9 Malignant neoplasm of urinary bladder 214348828 C67.9 Benign pro static hyperplasia without outflow obstruction 049197898 N40.0 [id number] KERRY ARNDT JR, MD SURGERY SCHEDULE [address] [place] [address] 1 10/12/2022 13:15:40 10/12/2022 13:16:23 Malignant neoplasm of urinary bladder 643075936 C67.9 [id number] KERRY ARNDT JR, MD CUA [facility] S [address] [place] [address] RD,[address] [place] [address] 0 06/06/2024 08:19:29 06/06/2024 09:26:08 Renal mass 691827959 N28.89 Malignant neoplasm of urinary bladder 421903807 C67.9 [id number] KERRY ARNDT JR, MD SURGERY SCHEDULE [address] [place] [address] 1 07/26/2024 12:32:53 07/26/2024 12:34:04 Malignant neoplasm of urinary bladder 686883142 C67.9 [id number] KERRY ARNDT JR, MD TRAVON [facility] S [address] [place] [address] RD,[address] [place] [address] 0 09/12/2024 14:46:43 09/17/2024 06:23:33 Benign prostatic hyperplasia 303767669 N40.1 Continue treatment with tamsulosin . Ordered PSA test to get a baseline. Monitor symptoms and adjust management as needed based on results and symptom progressio n. Congenital renal cyst 36 50353901 91507 Q61.02 Imaging indicates stable renal cysts. Continue monitoring with routine imaging to evaluate any future changes. No interventi on necessary at this time due to the absence of concerning features. Malignant neoplasm of urinary bladder 645529799 C67.9 Continue regular surveillan ce cystoscopy as [...] Member ID Florentino Member ID Guarantor Name 06/18/2025 1 [place]IC[place] Ritchie Nunes [id number] Ritchie Costello Ibrahima 09/12/2024 2 [facility] [employer] INS[employer] - PLAN G (MEDICARE SUPPLEMENT) Ritchie Nunes [id number] Ritchie Nunes Notes Date Note Type Note Provider Name [...] changes or erythema. KERRY ARNDT JR, MD [address] [place] [address], [phone], [facility] 07/07/2021 20:53:42 10/12/2022 text/html Diagnoses: BPH, [...] changes or erythema. KERRY ARNDT JR, MD [address] [place] [address], [address], [facility] 10/12/2022 15:26:54 06/06/2024 text/html Diagnoses: BPH, [...] changes or erythema. KERRY ARNDT JR, MD [address] [place] [address], [address], [facility] 06/09/2024 20:26:00 07/26/2024 text/html Diagnoses: BPH, [...] changes or erythema. KERRY ARNDT JR, MD [address] [place] [address], [address], [facility] 07/26/2024 16:11:04 09/12/2024 text/html The patient [...] changes or erythema. KERRY ARNDT JR, MD [employer] [place], [address], [facility] 09/16/2024 08:21:28
== END 2025-06-17 23:59 | disposition home or self-care (01) ==
LOC: LAB.DROPOF 06-18 13:40
PROVIDERS: PCP Family Medicine; Visit Provider Family Medicine
DX: E87.5 Hyperkalemia (principal)
CPT/HCPCS: 80048

== ENCOUNTER 2025-07-28 11:41 | Outpatient (CLI) | payer MEDICARE, OTHER, SELFPAY ==
[2025-07-28 17:35] LABS: Albumin Level 4.1 g/dl (3.5-5.0); Chloride 104 mmol/L (98-107); Sodium 137 mmol/L (136-145)
[2025-07-28 17:36] LABS: Potassium 5.3 mmoL/L (3.5-5.1)
[2025-07-28 17:38] LABS: Alanine Aminotransferase 14 U/L (12-78); Albumin/Globulin Ratio 1.8 (1.1-1.8); Alkaline Phosphatase 76 U/L (38-126); Anion Gap 11.3 mEq/L (5-15); Aspartate Amino Transferase 24 U/L (17-59); Bilirubin,Total 0.6 mg/dl (0.2-1.3); Blood Urea Nitrogen 25 mg/dl (9-20); Carbon Dioxide 27 mmol/L (22.0-30.0); Cholesterol 124 mg/dl (140-200); Creatinine,Serum 1.50 mg/dl (0.66-1.25); Estimated Glomerular Filt Rate 45 ml/min (>60); GFR (African American) 55 ML/MIN (>60); Globulin 2.3 g/dL (1.3-3.2); Total Protein,Serum 6.4 g/dl (6.3-8.2); Triglycerides 97 mg/dl (30-150)
[2025-07-28 17:39] LABS: Calcium 10.1 mg/dl (8.4-10.2); Glucose 133 mg/dl (74-100); HDL Cholesterol 69 mg/dl (40-60)
[2025-07-28 17:50] LABS: Free T4 (Free Thyroxine) 1.88 ng/dl (0.78-2.19)
[2025-07-28 18:08] LABS: Thyroid Stimulating Hormone 0.22 uIU/mL (0.465-4.68)
[2025-07-28 20:56] LABS: Hemoglobin A1C 6.9 % (4.0-6.0)
--- OUTSIDE RECORDS SUMMARY | 2025-07-29 13:08 | XMS_ITS ---
Author Organization [facility] Address [address] [place] [address] Care Team Providers Care Automatic Outsole Cutter Name Role Phone Javon Howard MD Primary Care Provider [phone]- [phone] Active Problems Problem Noted Date Diagnosed Date [...] of urinary bladder 07/07/2021 Coronary arteriosclerosis in [place] artery 12/18 Iron deficiency anemia 12/19/2019 Vitamin B12 deficiency (non anemic) 12/19/2019 Mixed hyperlipidemia 12/19/2019 penitentiary current use of anticoagulant 0 Benign prostatic hyperplasia without urinary obs truction 12/19/2019 Essential hypertension 12/19/2019 Hypothyroidism 12/19/2019 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
--- OUTSIDE RECORDS SUMMARY | 2025-07-29 13:09 | XMS_ITS | Clinical Summary ---
Author Organization [facility] Address [address] [place] [address] Care Team Providers Care Medical Assistant Float Name Role Phone Javon Howard MD Primary Care Provider +1- [phone] Allergies No known active allergies Medications Ferrous [...] of urinary bladder 07/07/2021 Coronary arteriosclerosis in [place] artery 12/18 Iron deficiency anemia 12/19/2019 Vitamin B12 deficiency (non anemic) 12/19/2019 Mixed hyperlipidemia 12/19/2019 detention current use of anticoagulant 0 Benign prostatic hyperplasia without urinary obs truction 12/19/2019 Essential hypertension 12/19/2019 Hypothyroidism 12/19/2019 detention (current) use of anticoagulants 2019 Type 2 [...] Department Care Team Description 05/13/2025 Results Follow-Up [facility] [address] [facility] [address] [place] [address] Mariella Perales APRN 05/07/2025 9:00 AM EDT Office Visit [facility] [address] [place] [address] Nguyễn Rain MD Coronary artery disease involving habematolel coronary artery of habematolel heart without angina pectoris (Primary Dx) 05/07/2025 Travel from Last 3 Months Immunizations Immunization [...] drink = 0.6 oz pur e alcohol) [facility] Utilities Answer Date Recorded In the past [...] and heating? Not hard at all 03/10/2024 [facility] [place] of Occupat ional Health - Occupational Stress [...] GED or equivalent No 03/10/2024 Preferred Language Egyptian 03/10/2024 PHQ-2 Answer Date Recorded Retired PHQ-9: [...] Description 02/04/2026 1:15 PM EDT Office Visit [facility] [address] [facility] [address] [place] [address] Stephanie Merchant APRN [address] [facility] [address] [place] [address] 05/13/2026 9:15 AM EDT Office Visit [facility] [address] [place] [address] Mariella Perales APRN [address] [facility] [address] [place] [address] Health Maintenance Due Date Last Done Comments [...] BLOOD TEST 03/08/2025 03/08/2024, 06/05 COVID-19 Vaccine (2024-09 6 season) 2025 07/09/2021, 10/10/2020, 09/19/2020 COLONOSCOPY 03/10/2029 03/10/2024, 03/10/2024 COLORECTAL CANCER SCREENING 03/10/2029 Medical Devices Implanted Type Area Subassembly Assembler Device Identifier Shelf Expiration Date Model / Serial / Lot Markr Malgorzata Radiomark Disk Ro Carmen - [id number] Implanted:Qty : 1 on 05/28/2019 by Nguyễn Calderon MD at [facility] Implant [employer] [id number] / / Dev Clip Endo [id number] Contrl Rot 235cm - [id number] Implanted:Qty : 1 on 03/10/2024 by Quinn Paz MD at [facility] Implant N/A: Sigmoid Colon [employer] 11/06/2026 [id number] / / [id number] Dev Clip Hemo Resolution 235cm 2.8mm - [id number] Implanted:Qty : 4 on 03/11/2024 by Quinn Paz MD at [facility] Implant N/A: Sigmoid Colon [employer] 11/06/2026 [id number] / / [id number] Description:Sigmoid polyp si te Stent Xience 5 Rx 3x18mm - [id number] Implanted:Qty : 1 on 03/02/2016 by Sabra Martel MD at [facility] [employer] 11/02/2018 [id number] / / [id number] Procedures Procedure Name Priority Date/Time Associated Diagnosis Comments COLONOSCOPY 03/10/2024 8:48 AM EDT POCT OCCULT BLOOD STOOL STAT 03/08/2024 11:[address] ANGIOGRAM CHEST STAT 06/09/2019 2: 00 PM EST HEMOGLOBIN A1C Routine 05/27/2019 12:50 PM EDT CAD in habematolel artery LIPID PANEL STAT 05/17/2019 8:22 AM [...] - 5.60 % 05/27/2019 2:12 PM EDT [facility] Blood Venipuncture / Unknown 05/27/2019 12:50 PM EDT 05/27/2019 1:14 PM EDT Narrative [facility] - 05/27/2019 2:12 PM EDT Hemoglobin A1C Ranges: Increased Risk for Diabetes 5.7% to 6.4% Diabetes >= 6.5% Diabetic Goal < 7.0% Grzegorz BENNETT LAB BLOOD ORDERABLES Final Result [facility]
[address] [place] [address], * (ABNORMAL) Lipid Panel (05/17/2019 8:22 AM EDT) Total Cholesterol 156 0 - 200 mg/dL 05/17/2019 9:10 AM EDT [facility] Triglycerides 65 0 - 150 mg/dL 05/17/2019 9:10 AM EDT [facility] HDL Cholesterol 69(H) 40 - 60 mg/dL 05/17/2019 9:10 AM EDT [facility] LDL Cholesterol 74 0 - 100 mg/dL 05/17/2019 9:10 AM EDT [facility] VLDL Cholesterol 13 mg/dL 05/17/20 19 9:10 AM EDT [facility] LDL/HDL Ratio 1.07 05/17/2019 9:10 AM EDT [facility] Blood Line / Unknown 05/17/2019 8: 22 AM EDT 05/17/2019 8:47 AM EDT Narrative [facility] - 05/17/2019 9:10 AM EDT Cholesterol [...] [place] PA-C LAB BLOOD ORDERABLES Final Result [facility]
[address] [place] [address], from Last 3 Months or Most Recently [...] pulse or is breathing): Full Care Teams Medical Assistant Float Relationship Specialty Start Date End Date Javon Howard MD [address] [place] [address] PCP - General Family Medicine 02/12/25
== END 2025-07-28 23:59 | disposition home or self-care (01) ==
LOC: LAB.DROPOF 07-29 13:05
PROVIDERS: PCP Family Medicine; Visit Provider Family Medicine
DX: E03.9 Hypothyroidism, unspecified (principal); E11.9 Type 2 diabetes mellitus without complications
CPT/HCPCS: 80053; 80061; 83036; 84439; 84443